=== PATIENT | female | born 1960 | race Caucasian/White ===

== ENCOUNTER 2019-08-18 20:39 | Emergency (ER) | payer MEDICAID, SELFPAY ==
[2019-08-18 20:47] VITALS: BP 103/81; PULSE 108; RESP 20; TEMP 36.7; O2SAT 95; BMI 54.8
--- NOTE | 2019-08-18 21:00 | ED_ITS ---
Entered by Yoly Espinoza, acting as scribe for Emma Tony HPI - Abdominal Pain General: Chief Complaint: Abdominal Pain Stated Complaint: VOMITING Time Seen by Provider: 08/18/19 20:59 Source: patient Mode of arrival: ambulatory Limitations: no limitations History of Present Illness: HPI narrative: 59 yo Female presents to ED with complaint of abdominal pain, nausea, and vomiting. Pt states that this started about a week ago. Pt states that it has gotten so bad that she hasn't been able to eat or drink anything today. Pt states that she has a history of diabetes and PVCs. MD elicited complaint: abdominal pain Pertinent past history: none Onset (ago): day(s) Pain Consistency: constant Location: RLQ Radiation: none Migration to: no migration Exacerbating factors: nothing Relieving factors: nothing Associated Symptoms: Reports nausea and vomiting; Denies chills, dysuria, fever(s), hematuria and syncope Review of Systems General: Reports: other (negative unless marked) Const: Denies: fever, chills, body aches, fatigue, malaise or diaphoresis Eyes: Denies: change in vision or blurry vision ENMT: Denies: throat pain, painful swallowing, hoarseness, ear pain, ear discharge, Change in hearing or nasal discharge Card: Denies: chest pain, palpitations, irregular heart rhythm, syncope, pre- syncope, shortness of breath on exertion or shortness of breath when lying down Resp: Denies: shortness of breath, productive cough, non-productive cough, wheezing, coughing up blood or chest congestion GI: Reports: abdominal pain, nausea and vomiting : Denies: flank pain, painful urination, urinary frequency, urinary urgency, decreased urine ouput, urinary incontinence or blood in urine Musc: Denies: neck pain, back pain, extremity pain, extremity swelling, joint pain, joint swelling, joint warmth or joint stiffness Skin/Breast: Denies: rash, skin tenderness or yellow skin Neuro: Denies: headache, numbness in extremities, weakness in extremities, changes in sensation, lack of coordination, difficulty walking, dizziness, vertigo or confusion Endo: Denies: excessive thirst, tired all the time, cold intolerance, excessi ve sweating, flushing or hot flashes Jose/Lymph: Denies: easy bruising, easy bleeding, petechiae or enlarged lymph nodes All/Imm: Denies: hives, throat swelling, tongue swelling, facial swelling or acute wheezing PFSH ED PFSH: Statuses (acute, chronic, etc) shown below reflect problem list status as previously entered and may not be historically accurate Medical History (Updated 08/18/19 @ 23:32 by Emma Tony) Diabetes (Acute) PVC (premature ventricular contraction) (Acute) Social History Smoking and tobacco status: never smoked Physical Exam Const: COMMON NORMALS: no apparent distress, oriented x3, no limitations, healthy appearing and well nourished EXAM LIMITATIONS: no altered mental status GENERAL APPEARANCE: cooperative, well kempt and well developed ORIENTATION/CONSCIOUSNESS: Yes awake HENMT: COMMON NORMALS: normocephalic, head/scalp atraumatic, hearing grossly normal bilaterally, external ears normal, EAC's normal, external nose normal and moist oral mucous membranes HEAD & SCALP: normal to inspection, normocephalic and atraumatic FACE & SINUS: normal facial exam and face symmetric NOSE: external nose normal and nares normal EXTERNAL EAR: Yes external ears normal EXTERNAL AUDITORY CANAL: EAC's normal MOUTH: oral and palatal mucosa normal and tongue normal Eye: COMMON NORMALS: PERRL, EOMs intact bilaterally, conjunctivae normal and no scleral icterus GENERAL EYE: normal appearance of both eyes and normal light reflex CONJUNCTIVA: Yes conjunctivae normal SCLERA: sclerae normal CORNEA: Yes corneas normal PUPIL: Yes PERRL DIRECT OPHTHALMOSCOPY: Yes normal light reflex Neck/C-Spine: COMMON NORMALS: full ROM, no lymphadenopathy, supple, no meningeal signs and no JVD GENERAL: Yes normal visual inspection and Yes trachea midline CERVICAL SPINE: Yes cervical ROM normal Chest: COMMONS NORMALS: inspection of chest normal and palpation of chest normal Resp: COMMON NORMALS: normal respiratory effort, no retractions, no use of ac cessory muscles and clear to auscultation bilaterally EFFORT & INSPECTION: Yes able to speak in complete sentences AUSCULTATION: clear to auscultation bilaterally Cardio: COMMON NORMALS: no JVD, regular rate, regular rhythm, S1 normal heart sound, S2 normal heart sound, no gallops, no clicks, no murmurs and no rub JUGULAR VENOUS DISTENTION: no JVD RATE: regular rate RHYTHM: regular rh ythm HEART SOUNDS: S1 normal and S2 normal GI: COMMON NORMALS: soft to palpation, non-tender, no hepatosplenomegaly and no masses INSPECTION: Yes normal to inspection PALPATION: Yes soft and Yes no hepatosplenomegaly : COMMON NORMALS: Yes no CVA tenderness BLADDER/KIDNEY EXAM: Yes no CVA tenderness Back/Pelvis: COMMON NORMALS: no CVA tenderness, thoracic and lumbar spine normal to inspection, no thoracic nor lumbar tenderness and thoraco-lumbar ROM normal Extremity: COMMON NORMALS: normal to inspection, full ROM, normal capillary refill, no joint enlargement, no clubbing, cyanosis or edema and no calf tenderness Neuro: COMMON NORMALS: oriented x3, CN's II-XII intact bilaterally, moves all extremities, no focal motor deficits and no sensory deficits noted MENINGEAL SIGNS: Yes no meningeal signs Psych: COMMON NORMALS: mental status grossly normal, thought process normal, cooperative, affect normal, speech normal and activity/motor behavior normal APPEARANCE: Yes well kempt SPEECH: Yes normal speech THOUGHT PROCESS: normal thought process Skin: COMMON NORMALS: no rashes or lesions noted, skin turgor normal, no jaundice, no petechiae and no mottling GENERAL SKIN EXAM: no rashes or lesions noted and turgor normal Course Vital Signs: Vital signs: Vital Signs Temperature 98.0 F 08/18/19 20:47 Pulse Rate 83 08/18/19 23:42 Respiratory Rate 18 08/18/19 23:42 Blood Pressure 170/77 08/18/19 23:42 Pulse Oximetry 95 08/18/19 23:42 MDM - Abdominal Pain Lab Data: Labs: Lab Results 08/18/19 08/18/19 08/18/19 Range/Units 21:25 21:25 21:25 WBC 12.0 H (4.0-10.0) 10^3/ uL RBC 5.02 (4.1-5.3) 10^6/u L Hgb 13.8 (11.5-15.3) g/dL Hct 41.9 (37.0-47.0) % MCV 83.5 (81-99) fL MCH 27.5 L (28.0-34.0) pg MCHC 32.9 (30.0-36.0) g/dL RDW 13.2 (12.1-15.1) % Plt Count 395 (130-400) 10^3/c mm MPV 9.6 (7.4-10.4) fL Neut % (Auto) 59.2 % Lymph % (Auto) 31.5 % [place] % (Auto) 5.4 % Eos % (Auto) 3.1 % Baso % (Auto) 0.5 % Neut # (Auto) 7.1 (1.8-7.7) 10^3/u L Lymph # (Auto) 3.8 (0.8-4.8) 10^3/u L [place] # (Auto) 0.7 (0.2-0.9) 10^3/u L Eos # (Auto) 0.4 (0.0-0.8) 10^3/u L Baso # (Auto) 0.1 (0.0-0.1) 10^3/u L Nucleated RBC % (a uto) 0 % Nucleated RBCs # 0.0 /100WBC Specimen Type Sample Site ABG pH (7.35-7.45) ABG pCO2 (35-45) mmHg ABG pO2 (80.0-100.0) mmH g ABG HCO3 (22-26) mmol/L ABG Base Excess (-2.0-2.0) mmol/ L Param Test Hematocrit (37-47) % O2 Delivery Device Roofing Foreman ID Sodium 137 (136-145) mmol/L Potassium 3.7 (3.5-5.1) mmol/L Chloride 98 (98-107) mmol/L Carbon Dioxide 26 (22-29) mmol/L Anion Gap 16.7 (5-19) BUN 13 (6-20) mg/dL Creatinine 0.6 (0.5-0.9) mg/dL GFR Calculation 103.0 (90-130) mL/min Glucose 374 H (65-115) mg/dL Calcium 10.6 H (8.5-10.5) mg/dL Total Bilirubin 0.7 (0.15-1.2) mg/dL AST 20 (0-32) U/L ALT 18 (0-33) U/L Alkaline Phosphata se 104 (35-105) IU/L Troponin T Baselin e (0-10) ng/mL Total Protein 7.9 (6.6-8.7) g/dL Albumin 4.0 (3.5-5.2) g/dL Globulin 3.9 (1.3-4.6) g/dL Lipase 16 (13-60) U/L HCG, Qual Negative (Negative) Urine Color (Yellow) Urine Appearance (CLEAR) Urine pH (5-7) Ur Specific Gravit y (1.005-1.030) Urine Protein (Negative) Urine Glucose (UA) (Normal) Urine Ketones (Negative) Urine Occult Blood (Negative) Urine Nitrate (Negative) Urine Bilirubin (NEGATIVE) Urine Urobilinogen (Negative) mg/dL Ur Leukocyte Kriss ase (Negative) Urine RBC (0-2) /hpf Urine WBC (0-5) /hpf Ur Squamous Epith Cells (0-5) Urine Bacteria (NONE) Serum Ketones (Negative) 08/18/19 08/18/19 08/18/19 Range/Units 21:25 21:25 22:04 WBC (4.0-10.0) 10^3/ uL RBC (4.1-5.3) 10^6/u L Hgb (11.5-15.3) g/dL Hct (37.0-47.0) % MCV (81-99) fL MCH (28.0-34.0) pg MCHC (30.0-36.0) g/dL RDW (12.1-15.1) % Plt Count (130-400) 10^3/c mm MPV (7.4-10.4) fL Neut % (Auto) % Lymph % (Auto) % [place] % (Auto) % Eos % (Auto) % Baso % (Auto) % Neut # (Auto) (1.8-7.7) 10^3/u L Lymph # (Auto) (0.8-4.8) 10^3/u L [place] # (Auto) (0.2-0.9) 10^3/u L Eos # (Auto) (0.0-0.8) 10^3/u L Baso # (Auto) (0.0-0.1) 10^3/u L Nucleated RBC % (a uto) % Nucleated RBCs # /100WBC Specimen Type Arterial Sample Site Radial, right ABG pH 7.40 (7.35-7.45) ABG pCO2 44.4 (35-45) mmHg ABG pO2 73.7 L (80.0-100.0) mmH g ABG HCO3 27.6 H (22-26) mmol/L ABG Base Excess 2.3 H (-2.0-2.0) mmol/ L Param Test Pos Hematocrit 43.0 (37-47) % O2 Delivery Device Room air Roofing Foreman ID [email or web address] Sodium (136-145) mmol/L Potassium (3.5-5.1) mmol/L Chloride (98-107) mmol/L Carbon Dioxide (22-29) mmol/L Anion Gap (5-19) BUN (6-20) mg/dL Creatinine (0.5-0.9) mg/dL GFR Calculation (90-130) mL/min Glucose (65-115) mg/dL Calcium (8.5-10.5) mg/dL Total Bilirubin (0.15-1.2) mg/dL AST (0-32) U/L ALT (0-33) U/L Alkaline Phosphata se (35-105) IU/L Troponin T Baselin e 9 (0-10) ng/mL Total Protein (6.6-8.7) g/dL Albumin (3.5-5.2) g/dL Globulin (1.3-4.6) g/dL Lipase (13-60) U/L HCG, Qual (Negative) Urine Color (Yellow) Urine Appearance (CLEAR) Urine pH (5-7) Ur Specific Gravit y (1.005-1.030) Urine Protein (Negative) Urine Glucose (UA) (Normal) Urine Ketones (Negative) Urine Occult Blood (Negative) Urine Nitrate (Negative) Urine Bilirubin (NEGATIVE) Urine Urobilinogen (Negative) mg/dL Ur Leukocyte Kriss ase (Negative) Urine RBC (0-2) /hpf Urine WBC (0-5) /hpf Ur Squamous Epith Cells (0-5) Urine Bacteria (NONE) Serum Ketones Negative (Negative) 08/18/19 Range/Units 23:03 WBC (4.0-10.0) 10^3/ uL RBC (4.1-5.3) 10^6/u L Hgb (11.5-15.3) g/dL Hct (37.0-47.0) % MCV (81-99) fL MCH (28.0-34.0) pg MCHC (30.0-36.0) g/dL RDW (12.1-15.1) % Plt Count (130-400) 10^3/c mm MPV (7.4-10.4) fL Neut % (Auto) % Lymph % (Auto) % [place] % (Auto) % Eos % (Auto) % Baso % (Auto) % Neut # (Auto) (1.8-7.7) 10^3/u L Lymph # (Auto) (0.8-4.8) 10^3/u L [place] # (Auto) (0.2-0.9) 10^3/u L Eos # (Auto) (0.0-0.8) 10^3/u L Baso # (Auto) (0.0-0.1) 10^3/u L Nucleated RBC % (a uto) % Nucleated RBCs # /100WBC Specimen Type Sample Site ABG pH (7.35-7.45) ABG pCO2 (35-45) mmHg ABG pO2 (80.0-100.0) mmH g ABG HCO3 (22-26) mmol/L ABG Base Excess (-2.0-2.0) mmol/ L Param Test Hematocrit (37-47) % O2 Delivery Device Roofing Foreman ID Sodium (136-145) mmol/L Potassium (3.5-5.1) mmol/L Chloride (98-107) mmol/L Carbon Dioxide (22-29) mmol/L Anion Gap (5-19) BUN (6-20) mg/dL Creatinine (0.5-0.9) mg/dL GFR Calculation (90-130) mL/min Glucose (65-115) mg/dL Calcium (8.5-10.5) mg/dL Total Bilirubin (0.15-1.2) mg/dL AST (0-32) U/L ALT (0-33) U/L Alkaline Phosphata se (35-105) IU/L Troponin T Baselin e (0-10) ng/mL Total Protein (6.6-8.7) g/dL Albumin (3.5-5.2) g/dL Globulin (1.3-4.6) g/dL Lipase (13-60) U/L HCG, Qual (Negative) Urine Color Yellow (Yellow) Urine Appearance Cloudy (CLEAR) Urine pH 5 (5-7) Ur Specific Gravit y 1.020 (1.005-1.030) Urine Protein 1+ H (Negative) Urine Glucose (UA) 4+ H (Normal) Urine Ketones 2+ H (Negative) Urine Occult Blood Trace H (Negative) Urine Nitrate Negative (Negative) Urine Bilirubin Neg (NEGATIVE) Urine Urobilinogen Norm (Negative) mg/dL Ur Leukocyte Kriss ase Trace H (Negative) Urine RBC 0-4 H (0-2) /hpf Urine WBC 15-25 H (0-5) /hpf Ur Squamous Epith Cells 0-4 H (0-5) Urine Bacteria 1+ H (NONE) Serum Ketones (Negative) Imaging Data ^: CT Abd/Pel: Radiologist's impression: [place] [address] CT Scan Report Signed Patient: Jacque Levine #: [id number] : 2At#:[id number] Age/Sex: 59 / FADM Date: 08/18/19 Loc: ERRoom/Bed: Attending Dr: Ordering Provider/Ordering MD: Emma Tony DO Date of Service: 08/18/19 Procedure(s): CT abdomen pelvis w con* [id number] Accession Number(s): [id number] Report Number: [id number] PROCEDURE INFORMATION: Exam: CT Abdomen And Pelvis With Contrast Exam date and time: 08/18/2019 9:23 PM Age: 59 years old Clinical indication: Abdominal pain; Generalized; Prior surgery; Surgery date: 6+ months; Surgery type: C-sect x 4; Patient HX: C/O abd pain w n/v x 1 week TECHNIQUE: Imaging protocol: Computed tomography of the abdomen and pelvis with intravenous contrast. Total DLP: 2086.25 mGy-cm Radiation optimization: All CT scans at this facility use at least one of these dose optimization techniques: automated exposure control; mA and/or kV adjustment per patient size (includes targeted exams where dose is matched to clinical indication); or iterative reconstruction. Contrast material: OMNI 300; Contrast volume: 95 ml; Contrast route: 20G; COMPARISON: CT Abdomen/Pelvis Renal [id number] 02/03/2018 4:14 PM FINDINGS: The lung bases are clear. There are degenerative changes of the spine. There is image degradation secondary to patient body habitus. There is no liver mass. There is no intrahepatic biliary dilatation. No gallstones are seen within the gallbladder. The pancreas is unremarkable. The spleen is unremarkable. There is a 4.4 cm stable right adrenal mass consistent with adenoma. This does not require any further follow-up. There is no hydronephrosis. There are no renal calculi. There is no perinephric stranding. There is no renal mass. The aorta is normal in caliber. The IVC is normal in caliber. There is no retroperitoneal adenopathy. There is no mesenteric adenopathy. The stomach is filled with food and fluid. There is no gastric wall thickening. The there is some minimal small bowel distention with fluid in the right lower abdomen which may represent a mild enteritis/ileus. There is no transition zone or obstruction. Feces is seen throughout the colon. There is no thickening of the wall of the ascending, transverse or descending colons. Within the pelvis: The appendix is not visualized to advantage. However, there is no CT evidence for acute appendicitis. The bladder is unremarkable. The uterus is unremarkable. There are no adnexal masses. There is no free fluid within the pelvis. There is no inguinal adenopathy. There is no pelvic adenopathy. Rectosigmoid colon is unremarkable. CT/CT abdomen pelvis w con* [id number] IMPRESSION: 1. Mild small bowel distention with fluid which may represent a mild enteritis/ileus. There is also some mild gastric distention as well. No definite bowel obstruction is seen. 2. Stable right adrenal adenoma. Radiation Dose CTDIVOL = (mGy): DLP = 2086.25 (mGy-cm) Dictated By:Sriram Avery MD Signed By:Sriram Averyigned Date/Time:08/18/192208 DD/ 06 Discharge Plan Discharge Patient Disposition: Home, Self-Care Clinical Impression: Gastroenteritis, Acute UTI Condition: Stable Prescriptions: New Zofran 4 mg tablet 4 mg PO DAILY PRN (Reason: nausea and vomiting) 5 Days RF: 0 Flagyl 500 mg tablet 500 mg PO TID 10 Days Qty: 30 RF: 0 Cipro 500 mg tablet 500 mg PO BID Qty: 20 RF: 0 Discharge Orders: Discharge Order (Routine); Ordered 08/18/19 Ordered By: Emma Tony Referrals: Brandi An, [employer] SPECIALTY TECHNICIAN-C [Family Provider] - 1-3 days Discharge Diet: Advance as tolerated and Clear Liquid Discharge Activity: Increase activity as tolerated Patient Instructions: Abdominal Pain - Adult, Gastroenteritis (ED), Abdominal Pain (ED) Activity Restrictions/Additional Instructions: Please return to the ER immediately for any of the signs or symptoms listed on your discharge instruction sheets, worsening/changing of your symptoms, you are not getting better as quickly as expected, or for ANY other cause or concerns. Developing appendicitis is still a possibility for your symptoms. If you develop more pain, fever, nausea, vomiting, or your pain is not completely gone within the next 8 to 12 hours please return to the ER for recheck to definitively rule out appendicitis. Coding Level of Care Code ED Sr. Payroll Processor for Chg Fwd Exam Problem Focused The documentation recorded by the Alexis payton Carmen, accurately reflects the service I personally performed and the decisions made by Chavo salguero Eli N Aug 18, 2019 20:39
--- NOTE | 2019-08-18 21:02 | ECG_ITS ---
Measurements Intervals [place] Rate: 82 P: 46 ND: 153 QRS: 16 QRSD: 89 T: 53 QT: 366 QTc: 430 SINUS RHYTHM Compared to ECG 02/03/2018 18:06:02 No significant changes Electronically Signed On 08-19-2019 0:20:53 DESKIDDING MACHINE OPERATOR by Rodney Todd M.D. [id number]
--- NOTE | 2019-08-18 21:03 | CTR_ITS ---
PROCEDURE INFORMATION: Exam: CT Abdomen And Pelvis With Contrast Exam date and time: 08/18/2019 9:23 PM Age: 59 years old Clinical indication: Abdominal pain; Generalized; Prior surgery; Surgery date: 6+ months; Surgery type: C-sect x 4; Patient HX: C/O abd pain w n/v x 1 week TECHNIQUE: Imaging protocol: Computed tomography of the abdomen and pelvis with intravenous contrast. Total DLP: 2086.25 mGy-cm Radiation optimization: All CT scans at this facility use at least one of these dose optimization techniques: automated exposure control; mA and/or kV adjustment per patient size (includes targeted exams where dose is matched to clinical indication); or iterative reconstruction. Contrast material: OMNI 300; Contrast volume: 95 ml; Contrast route: 20G; COMPARISON: CT Abdomen/Pelvis Renal [id number] 02/03/2018 4:14 PM FINDINGS: The lung bases are clear. There are degenerative changes of the spine. There is image degradation secondary to patient body habitus. There is no liver mass. There is no intrahepatic biliary dilatation. No gallstones are seen within the gallbladder. The pancreas is unremarkable. The spleen is unremarkable. There is a 4.4 cm stable right adrenal mass consistent with adenoma. This does not require any further follow-up. There is no hydronephrosis. There are no renal calculi. There is no perinephric stranding. There is no renal mass. The aorta is normal in caliber. The IVC is normal in caliber. There is no retroperitoneal adenopathy. There is no mesenteric adenopathy. The stomach is filled with food and fluid. There is no gastric wall thickening. The there is some minimal small bowel distention with fluid in the right lower abdomen which may represent a mild enteritis/ileus. There is no transition zone or obstruction. Feces is seen throughout the colon. There is no thickening of the wall of the ascending, transverse or descending colons. Within the pelvis: The appendix is not visualized to advantage. However, there is no CT evidence for acute appendicitis. The bladder is unremarkable. The uterus is unremarkable. There are no adnexal masses. There is no free fluid within the pelvis. There is no inguinal adenopathy. There is no pelvic adenopathy. Rectosigmoid colon is unremarkable. CT/CT abdomen pelvis w con* [id number] IMPRESSION: 1. Mild small bowel distention with fluid which may represent a mild enteritis/ileus. There is also some mild gastric distention as well. No definite bowel obstruction is seen. 2. Stable right adrenal adenoma. Radiation Dose CTDIVOL = (mGy): DLP = 2086.25 (mGy-cm)
[2019-08-18 21:33] LABS: Basophils # 0.1 10^3/uL (0.0-0.1); Basophils % 0.5 %; Eosinophils # 0.4 10^3/uL (0.0-0.8); Eosinophils % 3.1 %; Hematocrit 41.9 % (37.0-47.0); Hemoglobin 13.8 g/dL (11.5-15.3); Lymphocytes # 3.8 10^3/uL (0.8-4.8); Lymphocytes % 31.5 %; Mean Corpuscular HGB Conc 32.9 g/dL (30.0-36.0); Mean Corpuscular Hemoglobin 27.5 pg (28.0-34.0); Mean Corpuscular Volume 83.5 fL (81-99); Mean Platelet Volume 9.6 fL (7.4-10.4); Monocytes # 0.7 10^3/uL (0.2-0.9); Monocytes % 5.4 %; Neutrophils # 7.1 10^3/uL (1.8-7.7); Neutrophils % 59.2 %; Nucleated Red Blood Cells % 0 %; Platelet Count 395 10^3/cmm (130-400); Red Blood Count 5.02 10^6/uL (4.1-5.3); Red Cell Distribution Width 13.2 % (12.1-15.1)
[2019-08-18 21:40] LABS: Ketone (Acetest) Serum Negative (Negative)
[2019-08-18 21:41] VITALS: RESP 18
[2019-08-18] MEDS: morphine 4 mg/mL SDV 1 mL IVP (21:41)
[2019-08-18] MEDS: ondansetron 2 mg/ML SDV 2 mL 4 MG IVP (21:41)
[2019-08-18 21:44] LABS: HCG, Serum Qual Negative (Negative)
[2019-08-18 21:49] LABS: Alanine Aminotransferase 18 U/L (0-33); Alkaline Phosphatase 104 IU/L (35-105); Anion Gap 16.7 (5-19); Aspartate Amino Transferase 20 U/L (0-32); Blood Urea Nitrogen 13 mg/dL (6-20); Calcium 10.6 mg/dL (8.5-10.5); Carbon Dioxide 26 mmol/L (22-29); Chloride 98 mmol/L (98-107); Globulin 3.9 g/dL (1.3-4.6); Glucose 374 mg/dL (65-115); Lipase 16 U/L (13-60); Potassium 3.7 mmol/L (3.5-5.1); Sodium 137 mmol/L (136-145); Total Bilirubin 0.7 mg/dL (0.15-1.2); Total Protein 7.9 g/dL (6.6-8.7)
[2019-08-18] MEDS: iohexol 300 mg/mL 100 mL Btl IV (21:52)
[2019-08-18 22:04] LABS: ABG PCO2 44.4 mmHg (35-45); Base Excess ABG 2.3 mmol/L (-2.0-2.0); Blood Gas Allen Test Pos; Blood Gas Sample Site Radial, right; Blood Gas Sample Type Arterial; HCO3 ABG 27.6 mmol/L (22-26); Oxygen Device ROOM AIR; PO2 ABG 73.7 mmHg (80.0-100.0)
[2019-08-18 22:09] LABS: Troponin(5th) Baseline 9 ng/mL (0-10)
[2019-08-18 23:29] LABS: Protein Urine 1+ (Negative); Urine Appearance Cloudy (CLEAR); Urine Color Yellow (Yellow); pH Urine 5 (5-7)
[2019-08-18 23:30] LABS: Add Urine Culture? No; Bacteria Urine 1+; Bilirubin Urine Neg (NEGATIVE); Blood Urine Trace (Negative); Glucose Urine UA 4+ (Normal); Ketones Urine 2+ (Negative); Leukocyte Esterase Urine Trace (Negative); Nitrate Urine Negative (Negative); RBC Urine 0-4 /hpf (0-2); Squamous Epithelial Cell Urine 0-4 (0-5); Urobilinogen Urine Norm (Negative); WBC Urine 15-25 /hpf (0-5)
--- NOTE | 2019-08-18 23:35 | ECG_ITS ---
Measurements Intervals [place] Rate: 77 P: 38 IL: 140 QRS: 18 QRSD: 95 T: 65 QT: 381 QTc: 431 SINUS RHYTHM NONSPECIFIC T-WAVE ABNORMALITY Compared to ECG 02/03/2018 18:06:02 T-wave abnormality now present Electronically Signed On 08-19-2019 0:23:01 HOUSEKEEPING ASSOCIATE by Rodney Todd M.D. [id number]
[2019-08-18] MEDS: ciprofloxacin 500 mg Tablet PO (23:40)
[2019-08-18] MEDS: metoclopramide 5 mg/mL SDV 2 mL 10 MG IVP (23:40)
[2019-08-18] MEDS: metroNIDAZOLE 500 MG Tablet PO (23:40)
[2019-08-18 23:42] VITALS: BP 170/77; PULSE 83; RESP 18; O2SAT 95
[2019-08-18 23:59] LABS: Troponin 5 2HR 9.27 ng/mL (0-10); Troponin 5 2HR Delta 0.27 ABS# (0-10)
[2019-08-19 00:11] VITALS: BP 173/72; PULSE 80; RESP 17; O2SAT 80
== END 2019-08-19 00:09 | disposition home or self-care (01) ==
PROVIDERS: Emergency Provider Emergency Medicine; Family Provider Nurse Practitioner
DX: K52.9 Noninfective gastroenteritis and colitis, unspecified (principal); N39.0 Urinary tract infection, site not specified; E11.9 Type 2 diabetes mellitus without complications
CPT/HCPCS: 36600; 74177; 80053; 81001; 82009; 82803; 83690; 84484; 84703; 85025; 93005; 96361; 96365; 96372; 96374; 96375; 99283; 99284; A9270; J0131; J1815; J2270; J2405; J2765; J7030; Q9967

== ENCOUNTER → 2019-08-30 14:20 | Outpatient (BNVA) | payer MEDICAID, SELFPAY | PROVIDERS: Family Provider Nurse Practitioner; Visit Provider Nurse Practitioner | DX: E11.65 Type 2 diabetes mellitus with hyperglycemia (principal); N39.0 Urinary tract infection, site not specified; R82.998 Other abnormal findings in urine; F41.9 Anxiety disorder, unspecified; J30.1 Allergic rhinitis due to pollen; I10 Essential (primary) hypertension; E78.00 Pure hypercholesterolemia, unspecified; M54.2 Cervicalgia; Z79.4 Long term (current) use of insulin; Z92.29 Personal history of other drug therapy; Z86.73 Personal history of transient ischemic attack (TIA), and cerebral infarction without residual deficits | CPT/HCPCS: 80053; 81001; 83036; 85025; 87086; 87186 ==

== ENCOUNTER → 2019-09-19 13:48 | Outpatient (BNVA) | payer MEDICAID, SELFPAY | PROVIDERS: Family Provider Nurse Practitioner; Visit Provider Nurse Practitioner | DX: M54.2 Cervicalgia (principal); R82.998 Other abnormal findings in urine; M43.22 Fusion of spine, cervical region; M25.78 Osteophyte, vertebrae | CPT/HCPCS: 72040; 81001; 87086 ==

== ENCOUNTER 2019-12-20 03:00 | Emergency (ER) | payer MEDICAID, SELFPAY ==
[2019-12-20 03:02] VITALS: BMI 53.7
--- NOTE | 2019-12-20 03:04 | XR_ITS ---
WS: [id number] Portable AP upright chest, 12/20/2019 Clinical Data: Injury/pain Comparison: Portable chest, 08/27/2018 Findings: No nodules, masses or effusions are seen. The heart is normal. The pulmonary vascularity is not increased. No pneumonia or pneumothorax is seen. The aortic arch and descending aorta are minima lly tortuous. The patient has had a lower cervical anterior cervical disc fusion XR/XR chest 1V portable [id number] Impression: Atherosclerosis.
[2019-12-20 03:08] VITALS: BP 209/111; PULSE 83; RESP 20; TEMP 36.7; O2SAT 96
--- NOTE | 2019-12-20 03:27 | PC.NURSE ---
Pt did not want any medication at this time. All medication orders were held per Chavo.
--- NOTE | 2019-12-20 03:41 | ED_ITS ---
HPI - Trauma General: Chief Complaint: Trauma Stated Complaint: SIDE PAIN Time Seen by Provider: 12/20/19 03:02 History of Present Illness: HPI narrative: Jenny is a 59-year-old female who comes in complaining of 2 issues. First issue is that of a cat jumping on her chest causing her chest discomfort on the left lower part of her ribs. Her second complaint is that of urinary frequency, urgency and dysuria. Denies any fevers, chills, nausea or vomiting. She denies injuries to her head or otherwise from the cat. She wants to evaluated for these specific complaints. Associated symptoms: Denies abdominal pain, back pain, chills, confusion, diaphoresis, dizziness, fever(s), headache(s), nausea, syncope or vomiting Review of Systems Const: Denies: fever(s), chills, body aches, fatigue, malaise or diaphoresis Eyes: Denies: change in vision, blurry vision, blind spots or photophobia ENMT: Denies: throat pain, odynophagia, hoarseness, swelling of lips/tongue, ear or mastoid pain, ear discharge, change in hearing or nasal discharge Card: Denies: palpitations, irregular heart rhythm, edema, lightheadedness, syncope, pre-syncope, dyspnea on exertion or orthopnea Resp: Denies: dyspnea, productive cough, non-productive cough, wheezing, hemoptysis or chest congestion GI: Denies: abdominal pain, nausea, vomiting, hematemesis, coffee ground emesis, heartburn, diarrhea, constipation, GI cramping, hematochezia or melena : Reports: dysuria, urinary frequency and urinary urgency; Denies: flank pain or hematuria Musc: Denies: neck pain, back pain, extremity pain, extremity swelling, joint pain, joint swelling, joint redness, joint warmth or joint stiffness Skin/Breast: Denies: rash, pruritus, erythema, skin tenderness or jaundice Neuro: Denies: headache(s), numbness in extremities, weakness in extremities, sensory changes, lack of coordination, difficulty walking, dizziness, vertigo, confusion or Slurred speech present Jose/Lymph: Denies: easy bruising, easy bleeding, petechiae, purpura or enlarged lymph nodes All/Imm: Denies: urticaria, throat swelling, tongue swelling, facial swelling or acute wheezing PFSH ED PFSH: Medical History Allergic rhinitis due to pollen Anxiety Diabetes Essential (primary) hypertension History of CVA (cerebrovascular accident) Hypercholesterolemia Neck pain with history of cervical spinal surgery Obesity Personal history of transient ischemic attack (TIA), and cerebral infarction without residual deficits PVC (premature ventricular contraction) Surgical History H/O neck surgery C -spine with plate 2000 History of section 4 times History of endarterectomy Right History of endometrial ablation History of knee surgery Left History of tonsillectomy Family History Mother Diabetes Heart disease Hypertension Father Diabetes Heart disease Hypertension Cancer Unknown type Sister Diabetes Heart disease Hypertension Brother Diabetes Heart disease Hypertension Family/Other Stroke Social History Smoking and tobacco status: never smoked Second hand smoke exposure: No Smoking risk assessment/counseling performed?: No Alcohol intake: never Desire information about alcohol rehabilitation?: No Counseling given: No Desire information about substance/drug rehabilitation?: No Counseling given: No Caregiver/support person: No Lives independently: Yes Household members: spouse Housing: Apartment Marital status: Unknown Current occupational status: unemployed History of recent travel: No Current gender identity: Female Physical Exam Const: COMMON NORMALS: no acute distress, patient oriented x3, no limitations, healthy appearing and well nourished GENERAL APPEARANCE: cooperative, well kempt and well developed HENMT: COMMON NORMALS: normocephalic, atraumatic, external ears normal, EAC's normal and Normal external nose present HEAD & SCALP: normal to inspection, normocephalic and atraumatic FACE & SINUS: normal facial exam and face symmetric NOSE: Normal external nose present and Normal nares present EXTERNAL EAR: Yes external ears normal EXTERNAL AUDITORY CANAL: EAC's normal MOUTH: Normal oral and palatal mucosa present, lip normal and tongue normal Eye: COMMON NORMALS: Equal, round and reactive pupils present and conjunctivae normal GENERAL EYE: appearance normal, both eyes and all related structures ALIGNMENT: Yes alignment normal PERIORBITAL: periorbital findings normal EYELID: eyelids normal CONJUNCTIVA: Yes conjunctivae normal SCLERA: sclerae normal PUPIL: Yes Equal, round and reactive pupils present Neck/C-Spine: COMMON NORMALS: full ROM, no lymphadenopathy, supple, no meningeal signs and no JVD GENERAL: Yes normal visual inspection and Yes trachea midline Chest: COMMONS NORMALS: normal inspection of the chest and normal palpation of entire chest wall Resp: COMMON NORMALS: normal respiratory effort, No retractions and No use of accessory muscles EFFORT & INSPECTION: Yes able to speak in complete sentences and Yes symmetric chest movement AUSCULTATION: no crackles, no rales, no rhonchi and no wheezes Cardio: COMMON NORMALS: no JVD, regular rate, regular rhythm, S1 normal heart sound present and S2 normal heart sound present RATE: regular rate RHYTHM: regular rhythm HEART SOUNDS: S1 normal heart sound present, S2 normal heart sound present, no click, no gallops, no murmurs, no rubs and abnormal split S2 GI: COMMON NORMALS: Soft to palpation and No hepatosplenomegaly present PALPATION: Yes Soft to palpation, No Tenderness to palpation present (GI), No Guarding due to palpation present (GI), No Rigid due to palpation, Yes No hepatosplenomegaly present, No Hernia present, No Palpable mass present and No Pulsatile mass present : COMMON NORMALS: Yes no CVA tenderness BLADDER/KIDNEY EXAM: Yes no CVA tenderness EXTERNAL FEMALE EXAM: No Hernia present Back/Pelvis: COMMON NORMALS: no CVA tenderness, thoracic and lumbar spine normal to inspection, no thoracic nor lumbar tenderness and thoraco-lumbar ROM normal Extremity: COMMON NORMALS: normal to inspection, full ROM, capillary refill normal, no joint enlargement, no clubbing, cyanosis or edema and no calf tenderness Neuro: COMMON NORMALS: patient oriented x3, CN's II-XII intact bilaterally, moves all extremities, no focal motor deficits and no sensory deficits noted MENINGEAL SIGNS: Yes no meningeal signs SPEECH: speech normal Psych: COMMON NORMALS: mental status grossly normal, Normal thought process present, cooperative, normal affect, speech normal and activity/motor behavior normal APPEARANCE: Yes well kempt SPEECH: Yes normal speech THOUGHT PROCESS: Normal thought process present Skin: COMMON NORMALS: no rashes or lesions noted, turgor normal, no jaundice, no petechiae and no mottling GENERAL SKIN EXAM: no rashes or lesions noted and turgor normal MDM - Trauma MDM Narrative: Medical decision making narrative: Patient is lab work and x- ray unremarkable. She declines any further evaluation and care would like to be discharged. She will remain here until her ride is available but at this time she is declining any further evaluation and care. I see no sign of trauma. Her exam is benign with only minimal tenderness to palpation. Her urinalysis is negative and she has no CVA tenderness. Lab Data: Attestation: I reviewed the patient's lab results. Labs: Lab Results 12/20/19 Range/Units 03:20 Urine Color Yellow (Yellow) Urine Appearance Clear (CLEAR) Urine pH 6.5 (5-7) Ur Specific Gravit y 1.010 (1.005-1.030) Urine Protein Neg (Negative) Urine Glucose (UA) 4+ H (Normal) Urine Ketones Negative (Negative) Urine Blood Neg (Negative) Urine Nitrate Negative (Negative) Urine Bilirubin Neg (NEGATIVE) Urine Urobilinogen Norm (Negative) mg/dL Ur Leukocyte Kriss ase Negative (Negative) Urine RBC Rare (0-2) /hpf Urine WBC 0-4 H (0-5) /hpf Ur Squamous Epith Cells Rare (0-5) Urine Bacteria Trace (NONE) Imaging Data^: CXR: My impression: No acute cardiopulmonary findings. Discharge Plan Discharge Patient Disposition: Home, Self-Care Clinical Impression: Chest wall contusion Qualifiers: Encounter type: initial encounter Laterality: left Qualified Code(s): S20.212A - Contusion of left front wall of thorax, initial encounter Condition: Stable Prescriptions: No Action fluticasone propionate 50 mcg/actuation spray,suspension 2 spray INTRANASAL DAILY RF: 0 lancets miscellaneous BID RF: 0 nitroglycerin [Nitrostat] 0.4 mg tablet, sublingual 0.4 mg SUBLINGUAL Q5M PRNRF: 0 triamcinolone acetonide 0.1 % cream 1 applic TOPICAL BID PRNRF: 0 citalopram [Celexa] 40 mg tablet 40 mg PO DAILY Qty: 30 RF: 2 chlorthalidone 25 mg tablet 25 mg PO DAILY Qty: 30 RF: 2 cetirizine 10 mg tablet 10 mg PO DAILY Qty: 30 RF: 2 clopidogrel [Plavix] 75 mg tablet 75 mg PO DAILY Qty: 30 RF: 2 doxepin 100 mg capsule 100 mg PO DAILY Qty: 30 RF: 2 lisinopril 40 mg tablet 40 mg PO DAILY Qty: 30 RF: 2 montelukast [Singulair] 10 mg tablet 10 mg PO DAILY Qty: 30 RF: 2 rosuvastatin [Crestor] 40 mg tablet 40 mg PO DAILY Qty: 30 RF: 2 Lantus Solostar U-100 Insulin 100 unit/mL (3 mL) insulin pen 70 unit SUBCUT BID 30 Days Qty: 42 RF: 2 exenatide microspheres 2 mg/0.65 mL pen injector 2 mg SUBCUT Q7D Qty: 4 RF: 2 levofloxacin 250 mg tablet 250 mg PO DAILY Qty: 5 RF: 0 albuterol sulfate [Ventolin HFA] 90 mcg/actuation HFA aerosol inhaler 2 puff INHALATION Q4H PRN (Reason: shortness of breath or wheezing) Qty: 18 RF: 2 insulin aspart U-100 [Novolog Flexpen U-100 Insulin] 100 unit/mL (3 mL) insulin pen See Rx Instructions SUBCUT TID Qty: 15 RF: 0 Discharge Orders: Discharge Order (Routine); Ordered 12/20/19 Ordered By: Emma Tony Referrals: Brandi An, [facility] [Primary Care Provider] - 1-3 days Discharge Diet: Advance as tolerated Discharge Activity: Increase activity as tolerated Patient Instructions: Contusion in Adults (ED) Activity Restrictions/Additional Instructions: Please return to the ER immediately for any of the signs or symptoms listed on your discharge instruction sheets, worsening/changing of your symptoms, you are not getting better as quickly as expected, or for ANY other cause or concerns. Coding Level of Care Code ED [employer] Sales [employer] Service Manager for Kim Simmons
[2019-12-20 03:47] LABS: Bacteria Urine TRACE; Bilirubin Urine Neg (NEGATIVE); Blood Urine Neg (Negative); Glucose Urine UA 4+ (Normal); Ketones Urine Negative (Negative); Leukocyte Esterase Urine Negative (Negative); Nitrate Urine Negative (Negative); Protein Urine Neg (Negative); RBC Urine RARE /hpf (0-2); Squamous Epithelial Cell Urine RARE (0-5); Urine Appearance Clear (CLEAR); Urine Color Yellow (Yellow); Urobilinogen Urine Norm (Negative); WBC Urine 0-4 /hpf (0-5); pH Urine 6.5 (5-7)
[2019-12-20 04:03] VITALS: BP 160/81; PULSE 78; RESP 18; O2SAT 96
[2019-12-20] MEDS: acetaminophen 500 mg Tablet 1000 MG PO (05:01)
[2019-12-20 05:02] VITALS: BP 182/97; PULSE 78; RESP 18; O2SAT 95
== END 2019-12-20 05:05 | disposition home or self-care (01) ==
PROVIDERS: Emergency Provider Emergency Medicine; PCP Nurse Practitioner
DX: S20.212A Contusion of left front wall of thorax, initial encounter (principal); W55.09XA Other contact with cat, initial encounter; E11.9 Type 2 diabetes mellitus without complications; I10 Essential (primary) hypertension; Z86.73 Personal history of transient ischemic attack (TIA), and cerebral infarction without residual deficits
CPT/HCPCS: 12345; 71045; 81001; 99282; 99283; A9270

== ENCOUNTER → 2020-01-02 13:39 | Outpatient (BNVA) | payer MEDICAID, SELFPAY | PROVIDERS: PCP Nurse Practitioner; Visit Provider Nurse Practitioner | DX: E11.9 Type 2 diabetes mellitus without complications (principal); I10 Essential (primary) hypertension; F41.9 Anxiety disorder, unspecified; Z86.73 Personal history of transient ischemic attack (TIA), and cerebral infarction without residual deficits; E78.00 Pure hypercholesterolemia, unspecified; Z79.4 Long term (current) use of insulin | CPT/HCPCS: 80053; 80061; 83036 ==

== ENCOUNTER 2020-03-14 17:58 | Emergency (ER) | payer MEDICAID, SELFPAY ==
[2020-03-14 18:15] VITALS: BP 164/91; PULSE 84; RESP 18; TEMP 36.8; O2SAT 96; BMI 58.7
--- NOTE | 2020-03-14 19:06 | PC.NURSE ---
Pt in waiting room, no needs at this time.
[2020-03-14 20:45] VITALS: BP 145/77; PULSE 74; RESP 19; O2SAT 95
[2020-03-14 20:47] VITALS: BP 132/91; BP 136/67; BP 153/91; PULSE 73; PULSE 78; PULSE 89
--- NOTE | 2020-03-14 20:50 | W.ED.GENADLT ---
HPI - General Adult General: Chief complaint: General Medical Stated complaint: HEADACHE/ HTN Time Seen by Provider: 03/14/20 20:30 Source: patient Mode of arrival: ambulatory Limitations: no limitations History of Present Illness: HPI narrative: Patient comes in today for complaints of headache and uncontrolled hypertension. Patient reported elevated blood pressures as high as 220 systolic. Patient denies any weakness in the extremities. Patient denies any signs of illness. Patient appears well. Patient appears in no pain. Associated symptoms: Reports headache(s) Review of Systems General: Reports: 10 or more systems reviewed and unremarkable except in HPI and below Neuro: Reports: headache(s) [facility] ED PFS: Medical History (Updated 03/14/20 @ 21:57 by PRAMOD Lee) Allergic rhinitis due to pollen Anxiety Diabetes Essential (primary) hypertension History of CVA (cerebrovascular accident) Hypercholesterolemia Neck pain with history of cervical spinal surgery Obesity Personal history of transient ischemic attack (TIA), and cerebral infarction without residual deficits PVC (premature ventricular contraction) Recurrent bronchospasm Surgical History H/O neck surgery C -spine with plate 2000 History of section 4 times History of endarterectomy Right History of endometrial ablation History of knee surgery Left History of tonsillectomy Family History Mother Diabetes Heart disease Hypertension Father Diabetes Heart disease Hypertension Cancer Unknown type Sister Diabetes Heart disease Hypertension Brother Diabetes Heart disease Hypertension Family/Other Stroke Social History Smoking and tobacco status: never smoked Second hand smoke exposure: No Smoking risk assessment/counseling performed?: No Alcohol intake: never Desire information about alcohol rehabilitation?: No Counseling given: No Desire information about substance/drug rehabilitation?: No Counseling given: No Caregiver/support person: No Lives independently: Yes Household members: spouse Housing: Apartment Marital status: Unknown Current occupational status: unemployed History of recent travel: No Current gender identity: Female Physical Exam Const: COMMON NORMALS: no acute distress and patient oriented x3 GENERAL APPEARANCE: cooperative HENMT: COMMON NORMALS: normocephalic, TM's normal bilaterally and Normal external nose present HEAD & SCALP: normal to inspection and normocephalic NOSE: Normal external nose present TYMPANIC MEMBRANE: TM's normal bilaterally MOUTH: Normal oral and palatal mucosa present THROAT: posterior oropharynx normal Eye: GENERAL EYE: appearance normal, both eyes and all related structures Neck/C-Spine: COMMON NORMALS: full ROM and no meningeal signs Lymph: LYMPHATIC: no lymphadenopathy noted Chest: COMMONS NORMALS: normal inspection of the chest Resp: COMMON NORMALS: normal respiratory effort EFFORT & INSPECTION: Yes able to speak in complete sentences Cardio: COMMON NORMALS: regular rate and regular rhythm RATE: regular rate RHYTHM: regular rhythm GI: COMMON NORMALS: non-tender : COMMON NORMALS: Yes no CVA tenderness BLADDER/KIDNEY EXAM: Yes no CVA tenderness Back/Pelvis: COMMON NORMALS: no CVA tenderness and thoracic and lumbar spine normal to inspection Extremity: COMMON NORMALS: normal to inspection Neuro: COMMON NORMALS: patient oriented x3 and moves all extremities MENINGEAL SIGNS: Yes no meningeal signs SPEECH: speech normal GAIT: Yes Normal gait present Psych: COMMON NORMALS: mental status grossly normal and cooperative Skin: COMMON NORMALS: no rashes or lesions noted GENERAL SKIN EXAM: no rashes or lesions noted Course Vital Signs: Vital signs: Vital Signs Temperature 98.3 F 03/14/20 18:15 Pulse Rate 96 03/14/20 21:46 Respiratory Rate 18 03/14/20 21:46 Blood Pressure 127/77 03/14/20 21:46 Pulse Oximetry 95 03/14/20 21:46 MDM - General Adult MDM Narrative: Medical decision making narrative: Patient comes in today for complaints of headache and high blood pressure. Patient reported blood pressure as high as 220 systolic at home. On exam patient's blood pressure is down to 160 systolic. Respirations are even lungs are clear to auscultation. Abdomen soft nontender. No edema is noted in the extremities. Patient appears well. Differential diagnosis includes but not limited to uncontrolled hypertension, headache, ACS. Laboratory values were unremarkable. Lungs are clear on the chest x-ray, and EKG was sinus rhythm. Reviewed exam with patient recommended starting amlodipine 2-1/2 mg at bedtime to help control early day blood pressure little bit more well with her chlorthalidone 25 and lisinopril 40 mg were becoming effective. Patient usually takes those 2 medications in the morning. Prior to discharge patient's blood pressure did come down to 120 systolic. Headache was improved with a one-time dose of hydrocodone 5/325. Lab Data: Labs: Lab Results 03/14/20 03/14/20 03/14/20 Range/Units 20:53 20:53 21:00 WBC 14.8 H (4.0-10.0) 10^3/ uL RBC 5.12 (4.1-5.3) 10^6/u L Hgb 14.2 (11.5-15.3) g/dL Hct 44.5 (37.0-47.0) % MCV 86.9 (81-99) fL MCH 27.7 L (28.0-34.0) pg MCHC 31.9 (30.0-36.0) g/dL RDW 13.1 (12.1-15.1) % Plt Count 396 (130-400) 10^3/c mm MPV 9.1 (7.4-10.4) fL Neut % (Auto) 62.1 % Lymph % (Auto) 28.9 % [place] % (Auto) 6.2 % Eos % (Auto) 2.0 % Baso % (Auto) 0.5 % Neut # (Auto) 9.17 H (1.8-7.7) 10^3/u L Lymph # (Auto) 4.3 (0.8-4.8) 10^3/u L [place] # (Auto) 0.9 (0.2-0.9) 10^3/u L Eos # (Auto) 0.3 (0.0-0.8) 10^3/u L Baso # (Auto) 0.1 (0.0-0.1) 10^3/u L Nucleated RBC % (a uto) 0 % Nucleated RBCs # 0.0 /100WBC Sodium 141 (136-145) mmol/L Potassium 3.7 (3.5-5.1) mmol/L Chloride 100 (98-107) mmol/L Carbon Dioxide 32 H (22-29) mmol/L Anion Gap 12.7 (5-19) BUN 13 (6-20) mg/dL Creatinine 0.6 (0.5-0.9) mg/dL GFR Calculation 102.7 (90-130) mL/min Glucose 97 (65-115) mg/dL Calculated Osmolal ity 288 (285-295) mOsm/k g Calcium 9.9 (8.5-10.5) mg/dL Urine Color Yellow (Yellow) Urine Appearance Clear (CLEAR) Urine pH 8 H (5-7) Ur Specific Gravit y 1.005 (1.005-1.030) Urine Protein Neg (Negative) Urine Glucose (UA) Norm (Normal) Urine Ketones Negative (Negative) Urine Blood Neg (Negative) Urine Nitrate Negative (Negative) Urine Bilirubin Neg (NEGATIVE) Prot Sulfosalicyli c Acd Negative (Negative) Urine Urobilinogen Norm (Negative) mg/dL Ur Leukocyte Kriss ase Negative (Negative) EKG Data^: EKG 1: Attestation: I personally reviewed and interpreted this EKG as follows: (2115, sinus rhythm, 74 bpm regular rate, no ST elevation, no ectopy.) Discharge Plan Discharge Patient Disposition: Home Clinical Impression: Hypertension Qualifiers: Hypertension type: unspecified Qualified Code(s): I10 - Essential (primary) hypertension Headache Qualifiers: Headache type: unspecified Headache chronicity pattern: acute headache Intractability: not intractable Qualified Code(s): R51 - Headache Condition: Stable Prescriptions: New amlodipine 2.5 mg tablet 2.5 mg PO DAILY Qty: 30 RF: 0 No Action fluticasone propionate 50 mcg/actuation spray,suspension 2 spray INTRANASAL DAILY RF: 0 lancets miscellaneous BID RF: 0 nitroglycerin [Nitrostat] 0.4 mg tablet, sublingual 0.4 mg SUBLINGUAL Q5M PRNRF: 0 triamcinolone acetonide 0.1 % cream 1 applic TOPICAL BID PRNRF: 0 cetirizine 10 mg tablet 10 mg PO DAILY Qty: 30 RF: 2 chlorthalidone 25 mg tablet 25 mg PO DAILY Qty: 30 RF: 2 citalopram [Celexa] 40 mg tablet 40 mg PO DAILY Qty: 30 RF: 2 clopidogrel [Plavix] 75 mg tablet 75 mg PO DAILY Qty: 30 RF: 2 doxepin 100 mg capsule 100 mg PO DAILY Qty: 30 RF: 2 insulin aspart U-100 [Novolog Flexpen U-100 Insulin] 100 unit/mL (3 mL) insulin pen See Rx Instructions SUBCUT TID Qty: 15 RF: 0 Lantus Solostar U-100 Insulin 100 unit/mL (3 mL) insulin pen 70 unit SUBCUT BID 30 Days Qty: 42 RF: 2 lisinopril 40 mg tablet 40 mg PO DAILY Qty: 30 RF: 2 montelukast [Singulair] 10 mg tablet 10 mg PO DAILY Qty: 30 RF: 2 rosuvastatin [Crestor] 40 mg tablet 40 mg PO DAILY Qty: 30 RF: 2 albuterol sulfate [Ventolin HFA] 90 mcg/actuation HFA aerosol inhaler 2 puff INHALATION Q4H PRN (Reason: shortness of breath or wheezing) Qty: 18 RF: 2 [place] 10 mcg/dose(250 mcg/mL) 2.4 mL pen injector 10 mcg SUBCUT BID Qty: 2.4 RF: 1 (DME) blood-glucose meter [OneTouch Ultra2 Meter] Kit See Rx Instructions .ROUTE .MEDSUPPLY Qty: 1 RF: 0 (DME) OneTouch Ultra Blue Test Strip Strip See Rx Instructions .ROUTE .MEDSUPPLY Qty: 100 RF: 5 Discharge Orders: Discharge Order (Routine); Ordered 03/14/20 Ordered By: Edwin Cruz Referrals: Brandi An, [facility]LO[facility] [Primary Care Provider] - Discharge Diet: Usual diet Discharge Activity: Increase activity as tolerated Patient Instructions: Hypertension (ED) Activity Restrictions/Additional Instructions: Home and rest. Activity as tolerated. Take amlodipine 2-1/2 mg at bedtime. Follow-up with primary care regarding further blood pressure control. Healthy diet and exercise. Return to the emergency department for new concerns. Remember to change positions slowly with the start of new blood pressure medication while your body adjusts. Sudden movements may increase dizziness with blood pressure medications. Coding Level of Care Code ED Lining Finisher for Kim Fwd Exam Comprehensive
[2020-03-14 21:01] LABS: Basophils # 0.1 10^3/uL (0.0-0.1); Basophils % 0.5 %; Eosinophils # 0.3 10^3/uL (0.0-0.8); Hematocrit 44.5 % (37.0-47.0); Hemoglobin 14.2 g/dL (11.5-15.3); Lymphocytes # 4.3 10^3/uL (0.8-4.8); Lymphocytes % 28.9 %; Mean Corpuscular HGB Conc 31.9 g/dL (30.0-36.0); Mean Corpuscular Hemoglobin 27.7 pg (28.0-34.0); Mean Corpuscular Volume 86.9 fL (81-99); Mean Platelet Volume 9.1 fL (7.4-10.4); Monocytes # 0.9 10^3/uL (0.2-0.9); Monocytes % 6.2 %; Neutrophils # 9.17 10^3/uL (1.8-7.7); Neutrophils % 62.1 %; Nucleated Red Blood Cells % 0 %; Platelet Count 396 10^3/cmm (130-400); Red Blood Count 5.12 10^6/uL (4.1-5.3); Red Cell Distribution Width 13.1 % (12.1-15.1); White Blood Count 14.8 10^3/uL (4.0-10.0)
[2020-03-14 21:18] LABS: Anion Gap 12.7 (5-19); Blood Urea Nitrogen 13 mg/dL (6-20); Calcium 9.9 mg/dL (8.5-10.5); Carbon Dioxide 32 mmol/L (22-29); Chloride 100 mmol/L (98-107); Glomerular Filtration Rate 102.7 mL/min (90-130); Glucose 97 mg/dL (65-115); Osmolality Calculated 288 mOsm/kg (285-295); Potassium 3.7 mmol/L (3.5-5.1); Sodium 141 mmol/L (136-145)
[2020-03-14 21:33] LABS: Add Urine Microscopic? NO
[2020-03-14 21:38] LABS: Urine Appearance Clear (CLEAR); Urine Color Yellow (Yellow); pH Urine 8 (5-7)
[2020-03-14 21:39] LABS: Bilirubin Urine Neg (NEGATIVE); Blood Urine Neg (Negative); Glucose Urine UA Norm (Normal); Ketones Urine Negative (Negative); Leukocyte Esterase Urine Negative (Negative); Nitrate Urine Negative (Negative); Protein Urine Neg (Negative); Specific Gravity, Urine 1.005 (1.005-1.030); Sulfosalicylic Acid Urine Negative (Negative); Urobilinogen Urine Norm (Negative)
[2020-03-14] MEDS: HYDROcodone-acetaminophen 5-325 mg Tablet 1 TAB PO (21:45)
[2020-03-14 21:46] VITALS: BP 127/77; PULSE 96; RESP 18; O2SAT 95
[2020-03-14] MEDS: amlodipine 5 mg Tablet 2.5 MG PO (22:29)
[2020-03-14 22:36] VITALS: BP 141/95; PULSE 79; RESP 18; O2SAT 95
== END 2020-03-14 22:36 | disposition home or self-care (01) ==
PROVIDERS: Emergency Provider Nurse Practitioner Family; PCP Nurse Practitioner
DX: R51 Headache (principal); I10 Essential (primary) hypertension; Z79.02 Long term (current) use of antithrombotics/antiplatelets; Z79.4 Long term (current) use of insulin; E11.9 Type 2 diabetes mellitus without complications; Z86.73 Personal history of transient ischemic attack (TIA), and cerebral infarction without residual deficits
CPT/HCPCS: 12345; 36415; 80048; 81003; 85025; 99283

== ENCOUNTER → 2020-03-18 10:01 | Outpatient (BNVA) | payer MEDICAID, SELFPAY | PROVIDERS: PCP Nurse Practitioner; Visit Provider Internal Medicine | DX: Z11.59 Encounter for screening for other viral diseases (principal) | CPT/HCPCS: 87635 ==

== ENCOUNTER 2020-03-20 08:19 | Observation (INO) | payer MEDICAID, SELFPAY ==
[2020-03-18 11:51] LABS: Basophils # 0.1 10^3/uL (0.0-0.1); Basophils % 0.5 %; Eosinophils # 0.5 10^3/uL (0.0-0.8); Hematocrit 44.2 % (37.0-47.0); Hemoglobin 14.4 g/dL (11.5-15.3); Lymphocytes # 3.6 10^3/uL (0.8-4.8); Lymphocytes % 23.8 %; Mean Corpuscular HGB Conc 32.6 g/dL (30.0-36.0); Mean Corpuscular Hemoglobin 28.2 pg (28.0-34.0); Mean Corpuscular Volume 86.5 fL (81-99); Mean Platelet Volume 9.6 fL (7.4-10.4); Monocytes # 0.8 10^3/uL (0.2-0.9); Monocytes % 5.2 %; Neutrophils # 9.95 10^3/uL (1.8-7.7); Nucleated Red Blood Cells % 0 %; Platelet Count 430 10^3/cmm (130-400); Red Blood Count 5.11 10^6/uL (4.1-5.3); White Blood Count 14.9 10^3/uL (4.0-10.0)
[2020-03-18 12:40] LABS: Anion Gap 15.2 (5-19); Blood Urea Nitrogen 15 mg/dL (6-20); Calcium 9.1 mg/dL (8.5-10.5); Carbon Dioxide 31 mmol/L (22-29); Chloride 94 mmol/L (98-107); Glomerular Filtration Rate 85.9 mL/min (90-130); Glucose 408 mg/dL (65-115); Osmolality Calculated 295 mOsm/kg (285-295); Potassium 4.2 mmol/L (3.5-5.1); Sodium 136 mmol/L (136-145)
[2020-03-19 11:53] VITALS: BMI 56.9
[2020-03-20] VITALS (13 sets, daily range): BP systolic 91–143; BP diastolic 61–93; PULSE 76–91; RESP 16–24; TEMP 37.1; O2SAT 74–96
--- NOTE | 2020-03-20 06:00 | XACV_ITS ---
Ht: 157 cm Wt: 141 kg BSA: 2.58 m2 Gender: Female : 1960 Any Known Allergies: Other Exam Priority: Routine Procedure(s): Procedure Description: Diagnostic procedure Procedure Description: Coronary angiography Diagnostic Cath Status: Elective Diagnostic Findings No significant disease noted in the Left Main, LAD, Circumflex, or RCA coronary arteries. All coronary arteries are tortuous. Left main arises from left coronary cusp. It has luminal irregularities. It gives rise to LAD and left circumflex artery. LAD is a tortuous vessel. It gives rise to a large diagonal branch. No significant stenosis is noted. Left circumflex artery has luminal irregularities. No significant stenosis is noted. RCA is a tortuous vessel. No significant stenosis is noted. Coronary angiography shows right dominance. Conclusions Possible microvascular dysfunction. No significant disease noted in the Left Main, LAD, Circumflex, or RCA coronary arteries. Recommendations Aggressive blood pressure control. Clinical Evaluation EBL: 5mL-10mL Procedural Details Procedure Consent Obtained. Admit Source: In Patient. Pre-Procedure Time Out. Identified patient by full name and date of as verbalized by the patient/guarantor. Does the consent match the physician's order: Yes. Accurate & Complete Informed Consent: Yes. Inpatient/Outpatient History & Physical on Chart: Yes. If H&P is completed, is and addenduem needed: N/A; If yes, is the addendum complete: N/A. Visualize and Verify Site with Patient/Guarantor: N/A. Relevant Radiology Images available: N/A. Pre-op teaching completed and patient verbalized understanding. The risks, benefits, and alternatives of sedation and/or procedure were discussed by physician. The patient agrees to continue. Procedure started. Correct patient, site and procedure confirmed by cath team. PERRLA. Strong, equal hand piano teacher bilaterally. Lungs clear x 5 lobes. IV Site on Arrival: 20 gauge in the right anticubital. Oxygen started at 2liters/min via nasal canula. bilateral groins was prepped with chloroprep then draped in the usual sterile fashion. Baseline sample Acquired. HR: 79 BPM. Physician notified. Patient stated that we can get ahold of son after procedure. Physician arrived. Physician scrubbed in. Immediate Pre-Procedure Time Out. Correct Patient: Yes; Correct Procedure: Yes; Correct Site: Yes; Correct Patient Position: Yes; Correct Supplies: Yes; Dried Flammable Prep: Yes; Blood Products Available: N/A;. right radial was prepped with chloroprep then draped in the usual sterile fashion. Lidocaine 1% infiltrated to the right radial. Arterial access obtained. A 5 [place] islander TIG catheter in over wire. Catheter out. A 5 [place] islander JL3.5 catheter in over wire. Multiple views taken of left coronary artery. Catheter out. A 5 [place] islander JR4 catheter in over wire. Multiple views taken of right coronary artery. Catheter out. TR band placed. Hemostasis obtained. Post Procedure: Pulses reassessed and unchanged. PERRLA. Strong, equal hand piano teacher bilaterally. No VTE prophylaxis required. Medication's Wasted: Other = versed 1 mg. Medication's Wasted: Other = fentanyl 50 mg. Medication's Wasted: Lidocaine 1% = 18 mL. Medication's Wasted: Heparin = 1000 units. Medication's Wasted: Nitro = 49.8 mg. Total IV fluids: 54.9 mL. Contrast type used: Omnipaque 300 mgI/mL, 500 mL bottle. Contrast Material : Omnipaque 101 ml. Post-op diagnosis: non obstructive CAD. Complications: none. Estimated blood loss: 5mL-10mL. Procedure completed. A TR Band was successful obtaining hemostatsis at the Right Radial artery insertion site. [facility] Clinical Fraility Score: 2: Well. Superintendent Refuse Disposal Indications: Worsening Angina. Chest Pain Symptom Assessment: Typical Angina Symptoms. Cardiovascular Instability: No,. Patient transferred by wheelchair to 1st floor. Vital chart was stopped. Site: Right Radial artery Sheath Size: 6 Fr Hemostasis Method: TR Band Hemostasis Success: Successful Procedure Medications Start: 7:08 AM Stop: 7:08 AM Medication: Benadryl Amount: 25 mg Route: I.V. Start: 7:26 AM Stop: 7:26 AM Medication: Versed Amount: 1 mg Route: I.V. Start: 7:26 AM Stop: 7:26 AM Medication: Fentanyl Amount: 50 mcg Route: I.V. Start: 7:30 AM Stop: 7:30 AM Medication: Versed Amount: 1 mg Route: I.V. Start: 7:31 AM Stop: 7:31 AM Medication: Nitrogylcerin Amount: 200 mcg Route: I.A. Start: 7:36 AM Stop: 7:36 AM Medication: Heparin Amount: 5000 units Route: I.V. Start: 7:42 AM Stop: 7:42 AM Medication: Versed Amount: 1 mg Route: I.V. I, the attending physician, have reviewed and verified all procedure medications. Yes, all medications given per verbal order History/Risk Factors Hypertension: Yes Dyslipidemia: Yes Diabetic Therapy: Insulin Peripheral Arterial Disease (PAD): No Myocardial Infarction (OR): No Obesity: Yes Renal Disease: No Tobacco Use: Never Prior Interventions PCI: No CABG: No Valve Surgery: No Report Signatures Finalized by:Trevon Merino MD on 03/20/2020 12:44:16 PM
--- NOTE | 2020-03-20 07:56 | W.PM.OPSUD ---
Surgery/Procedure H&P Update DATE OF PROCEDURE: March 20, 2020 DATE H&P PERFORMED: 03/10/20 H&P UPDATE INFORMATION: I have reviewed H&P completed within last 30 days and I have examined patient prior to procedure PREOP DIAGNOSIS: Worsening angina PRIMARY INDICATION FOR PROCEDURE: Worsening angina PLANNED PROCEDURE: Operation Date: 03/20/20 07:00 Proposed Procedures p Cardiac Catheterization(Left) - Trevon Merino M.D PATIENT REASSESSED PRIOR TO SEDATION, WITH NO CHANGE NOTED: Yes PHYSICAL EXAM: alert, oriented x 3, clear to auscultation bilaterally and regular rate & rhythm AIRWAY EVAL/ANESTHESIA PLAN: normal airway, ASA II, Risks, benefits & alternatives of sedation and/or procedure discussed and Patient agrees to continue as planned
--- NOTE | 2020-03-20 07:58 | W.PM.OPSUD ---
Surgery/Procedure H&P Update DATE OF PROCEDURE: March 20, 2020 DATE H&P PERFORMED: 03/10/20 H&P UPDATE INFORMATION: I have reviewed H&P completed within last 30 days, I have examined patient prior to procedure and No changes to prior documentation PREOP DIAGNOSIS: Worsening angina PRIMARY INDICATION FOR PROCEDURE: Worsening angina PLANNED PROCEDURE: Operation Date: 03/20/20 07:00 Proposed Procedures p Cardiac Catheterization(Left) - Trevon Merino M.D PATIENT REASSESSED PRIOR TO SEDATION, WITH NO CHANGE NOTED: Yes PHYSICAL EXAM: alert, oriented x 3, clear to auscultation bilaterally and regular rate & rhythm AIRWAY EVAL/ANESTHESIA PLAN: normal airway, ASA II, Risks, benefits & alternatives of sedation and/or procedure discussed and Patient agrees to continue as planned
--- NOTE | 2020-03-20 11:33 | PC.CHAP ---
Pastoral Care Encounter/Spiritual Assessment Type of Contact [] Declined hvac residential service technician visit [] Patient/Family/Request visit [] Outpatient visit [] Follow-up visit [] Physician referral [] Code/Alert [x] Routine visit [] Staff referral [] Actively dying [] Patient sleeping [x] Family support [] [] Out of room [] Palliative care [] [x] Receiving care in room [] Pre-surgical visit [] Trauma [] Long length of stay [] ICU visit [] Other: Relational/Emotional Strength [] Patient feels connected with others/family/visitors/staff [x] Distress [] Loneliness/isolation [] Abandonment Spirituality of Patient [x] Person of Farzana [] Attends Caodaism of their Farzana [x] Believes in Prayer [] Reads Bible or Gnosticist materials [] There are Spiritual issues to be addressed [employer] Interventions [x] Prayer [x] Active listening [x] Non-anxious presence [x] Spiritual/emotional support [] Crisis/trauma care [x] Spiritual counseling [] Bereavement support [] Provided bereavement packet [] Provided Bible/devotional materials [] Provided toy/stuffed animal, coloring book to patient or family member [] Provided Communion [] Anointing/[place] [] Salvation [x] Completed spiritual assessment [] Other: Impact on Illness or Injury [] Angry [] Fearful [] Anxious [] Often cries [] Exhaustion [] Unable to work [] Unable to attend religion [] Unable to walk/stand [] Unable to read [] Unable to drive [] Unable to eat/drink [] Unable to sleep [] Unable to be with family [] Patient intubated [] Other: Summary Has a good attitude, feels good, needs more testing, going home soon Time spent with patient 10 mins
--- NOTE | 2020-03-20 12:17 | PC.NURSE ---
1130 TR band removed per protocol dressing applied patient educated on s/s of infections as well as activity restrictions patient verbalized understanding
--- NOTE | 2020-03-20 12:19 | PC.NURSE ---
1150 discharge instructions provided and explained patient verbalized understanding of all instructions given.
--- NOTE | 2020-03-20 12:20 | PC.NURSE ---
patient discharged home at this time all belongings and discharge instructions in hand patient assisted to wheel chair and accompanied out to transport services set up by patient. patient alert oriented and in stable condition
== END 2020-03-20 12:22 | disposition home or self-care (01) ==
LOC: CSU 08:19
PROVIDERS: Admitting Provider Internal Medicine; PCP Nurse Practitioner; Visit Provider Internal Medicine
DX: I20.0 Unstable angina (principal); E78.5 Hyperlipidemia, unspecified; I10 Essential (primary) hypertension; E11.9 Type 2 diabetes mellitus without complications; Z86.73 Personal history of transient ischemic attack (TIA), and cerebral infarction without residual deficits; Z82.49 Family history of ischemic heart disease and other diseases of the circulatory system; Z88.2 Allergy status to sulfonamides; Z88.0 Allergy status to penicillin; Z88.5 Allergy status to narcotic agent; Z79.4 Long term (current) use of insulin
CPT/HCPCS: 12345; 80048; 85025; 85610; 93454; C1769; C1887; C1894; G0378; J1200; J1644; J2250; J3010; J3490; J7030; Q9967

== ENCOUNTER → 2020-03-27 14:40 | Outpatient (BNVA) | payer MEDICAID, SELFPAY | PROVIDERS: PCP Nurse Practitioner; Visit Provider Nurse Practitioner Family | DX: I10 Essential (primary) hypertension (principal) | CPT/HCPCS: 80048 ==

== ENCOUNTER → 2020-05-08 13:40 | Outpatient (BNVA) | payer MEDICAID, SELFPAY | PROVIDERS: PCP Nurse Practitioner; Visit Provider Nurse Practitioner | DX: E11.65 Type 2 diabetes mellitus with hyperglycemia (principal); Z79.4 Long term (current) use of insulin; I10 Essential (primary) hypertension; J30.1 Allergic rhinitis due to pollen; F41.9 Anxiety disorder, unspecified; J98.09 Other diseases of bronchus, not elsewhere classified; Z86.73 Personal history of transient ischemic attack (TIA), and cerebral infarction without residual deficits; E78.00 Pure hypercholesterolemia, unspecified; M47.814 Spondylosis without myelopathy or radiculopathy, thoracic region | CPT/HCPCS: 80053; 80061; 83036; 84443 ==

== ENCOUNTER → 2020-08-07 13:37 | Outpatient (BNVA) | payer MEDICAID, SELFPAY | PROVIDERS: PCP Nurse Practitioner; Visit Provider Nurse Practitioner | DX: E11.65 Type 2 diabetes mellitus with hyperglycemia (principal); Z79.4 Long term (current) use of insulin; I10 Essential (primary) hypertension; F41.9 Anxiety disorder, unspecified | CPT/HCPCS: 80053; 81003; 83036; 85025 ==

== ENCOUNTER 2020-08-20 01:14 | Emergency (ER) | payer MEDICAID, SELFPAY ==
[2020-08-20 01:16] VITALS: BP 187/63; PULSE 102; RESP 22; TEMP 36.6; O2SAT 97; BMI 56.7
[2020-08-20 01:22] VITALS: BP 187/63; PULSE 104; RESP 22; O2SAT 96
--- NOTE | 2020-08-20 01:36 | ECG_ITS ---
[facility] Test Date: 2020-08-20 Pat Name: Jacque Levine Department: Room: Gender: Female Sound Tester: : 1960 Requested By: Rama Solitario Order Number: [id number] Paula MD: Martha Carlson M.D. Measurements Intervals [place] Rate: 95 P: 44 ME: 161 QRS: 27 QRSD: 93 T: 70 QT: 363 QTc: 456 Interpretive Statements SINUS RHYTHM NONSPECIFIC T-WAVE ABNORMALITY Compared to ECG 08/18/2019 23:39:35 No significant changes Electronically Signed On 08-20-2020 11:39:32 DISPATCH CLERK by Martha Carlson M.D. [id number]
--- NOTE | 2020-08-20 02:21 | ED_ITS ---
HPI - Fall General: Chief Complaint: Fall Stated Complaint: Shoulder pain Time Seen by Provider: 08/20/20 01:24 Source: patient and family Mode of arrival: EMS Limitations: no limitations History of Present Illness: HPI Narrative: 60-year-old female stood up today, lost her balance fell backward and landed on a glass table, complaining of left shoulder neck and back pain. This happened several hours prior to arrival. She has been able to move her arm and neck, denies any weakness or numbness. No LOC. Did not hit her head. Associated symptoms-after fall: Reports neck pain; Denies abdominal pain, chest pain or headache(s) Review of Systems General: Reports: 10 or more systems reviewed and unremarkable except in HPI and below Const: Reports: body aches; Denies: fever(s) or chills Eyes: Denies: change in vision or blurry vision Card: Denies: chest pain, palpitations or irregular heart rhythm Resp: Denies: dyspnea, pain on inspiration or chest congestion GI: Denies: abdominal pain, nausea or vomiting : Denies: flank pain, difficulty voiding or dysuria Musc: Reports: neck pain, back pain, extremity pain, joint pain, limited range of motion and muscle cramps; Denies: deformity Skin/Breast: Denies: rash, pruritus or erythema Neuro: Denies: headache(s), numbness in extremities or weakness in extremities PFS ED PFSH: Medical History Allergic rhinitis due to pollen Anxiety Asthma due to seasonal allergies Diabetes Essential (primary) hypertension History of CVA (cerebrovascular accident) Hypercholesterolemia Neck pain with history of cervical spinal surgery Obesity Osteoarthritis thoracic spine Personal history of transient ischemic attack (TIA), and cerebral infarction without residual deficits PVC (premature ventricular contraction) Surgical History H/O neck surgery C -spine with plate 2000 History of section 4 times History of endarterectomy Right History of endometrial ablation History of knee surgery Left History of tonsillectomy Family History Mother Diabetes Heart disease Hypertension Father Diabetes Heart disease Hypertension Cancer Unknown type Sister Diabetes Heart disease Hypertension Brother Diabetes Heart disease Hypertension Family/Other Stroke Social History Smoking and tobacco status: never smoked Second hand smoke exposure: No Smoking risk assessment/counseling performed?: No Alcohol intake: never Desire information about alcohol rehabilitation?: No Counseling given: No Desire information about substance/drug rehabilitation?: No Counseling given: No Caregiver/support person: No Lives independently: Yes Household members: spouse Housing: Apartment Marital status: Unknown Current occupational status: unemployed History of recent travel: No Current gender identity: Female Physical Exam Const: COMMON NORMALS: no acute distress, patient oriented x3 and alert GENERAL APPEARANCE: cooperative and anxious NUTRITIONAL APPEARANCE: obese morbidly obese HENMT: COMMON NORMALS: normocephalic and atraumatic HEAD & SCALP: normocephalic and atraumatic FACE & SINUS: normal facial exam and face symmetric Eye: COMMON NORMALS: Equal, round and reactive pupils present and EOMs intact bilaterally GENERAL EYE: appearance normal, both eyes and all related structures PUPIL: Yes Equal, round and reactive pupils present Neck/C-Spine: COMMON NORMALS: full ROM and no lymphadenopathy CERVICAL SPINE: Yes cervical ROM normal, No pain with cervical ROM, No Cervical spine tenderness, No step off deformity, Yes Paracervical muscle tenderness, Yes Paracervical spasm and Yes Trapezius muscle tenderness Chest: COMMONS NORMALS: normal inspection of the chest and normal palpation of entire chest wall Resp: COMMON NORMALS: normal respiratory effort and No use of accessory muscles EFFORT & INSPECTION: Yes able to speak in complete sentences Cardio: COMMON NORMALS: regular rate and regular rhythm RATE: regular rate RHYTHM: regular rhythm GI: COMMON NORMALS: Normal to inspection, nondistended, normoactive bowel sounds present, non-tender, No hepatosplenomegaly present and no masses INSPECTION: Yes normal to inspection AUSCULTATION: Yes normoactive bowel sounds PALPATION: Yes No hepatosplenomegaly present : COMMON NORMALS: Yes no CVA tenderness BLADDER/KIDNEY EXAM: Yes no CVA tenderness Back/Pelvis: COMMON NORMALS: no CVA tenderness THORACIC SPINE/UPPER BACK: Yes pain with ROM, Yes thoracic spinal tenderness, Yes paraspinal muscle tenderness and Yes paraspinal muscle spasm LUMBAR SPINE/LOWER BACK: Yes normal to inspection and Yes lumbar ROM normal Extremity: COMMON NORMALS: capillary refill normal Neuro: COMMON NORMALS: patient oriented x3, no focal motor deficits and no sensory deficits noted SENSORIUM/ORIENTATION: Yes alert Skin: COMMON NORMALS: no rashes or lesions noted, no wounds and no petechiae GENERAL SKIN EXAM: no rashes or lesions noted Course Vital Signs: Vital signs: Vital Signs Temperature 97.8 F 08/20/20 01:16 Pulse Rate 88 08/20/20 05:20 Respiratory Rate 18 08/20/20 05:20 Blood Pressure 163/77 08/20/20 05:20 Pulse Oximetry 94 08/20/20 05:20 MDM - Fall MDM Narrative: Medical decision making narrative: 60-year-old female with complaints of left shoulder, back, neck pain after falling at home. No significant injuries suspected based on physical exam. She has normal range of motion, normal strength and sensation. There is no bony swelling or deformities. Do not see any indication for x-rays at this time. UA likely contaminated. Follow-up with PCP in the next 3 days. Return immediately if she develops worsening pain, dizziness, repeated falls, difficulty breathing, or any other Medical Records: Attestation: I reviewed the patient's medical records. Lab Data: Attestation: I reviewed the patient's lab results. Labs: Lab Results 08/20/20 08/20/20 08/20/20 Range/Units 01:30 03:45 03:45 WBC 15.4 H (4.0-10.0) 10^3/ uL RBC 4.84 (4.1-5.3) 10^6/u L Hgb 13.5 (11.5-15.3) g/dL Hct 42.5 (37.0-47.0) % MCV 87.8 (81-99) fL MCH 27.9 L (28.0-34.0) pg MCHC 31.8 (30.0-36.0) g/dL RDW 13.8 (12.1-15.1) % Plt Count 403 H (130-400) 10^3/c mm MPV 9.2 (7.4-10.4) fL Neut % (Auto) 68.0 % Lymph % (Auto) 23.3 % Garden % (Auto) 5.1 % Eos % (Auto) 2.7 % Baso % (Auto) 0.5 % Neut # (Auto) 10.49 H (1.8-7.7) 10^3/u L Lymph # (Auto) 3.6 (0.8-4.8) 10^3/u L Garden # (Auto) 0.8 (0.2-0.9) 10^3/u L Eos # (Auto) 0.4 (0.0-0.8) 10^3/u L Baso # (Auto) 0.1 (0.0-0.1) 10^3/u L Nucleated RBC % (a uto) 0 % Nucleated RBCs # 0.0 /100WBC Sodium 137 (136-145) mmol/L Potassium 4.1 (3.5-5.1) mmol/L Chloride 100 (98-107) mmol/L Carbon Dioxide 27 (22-29) mmol/L Anion Gap 14.1 (5-19) BUN 17 (6-20) mg/dL Creatinine 0.5 (0.5-0.9) mg/dL GFR Calculation 126.7 (90-130) mL/min Glucose 362 H (65-115) mg/dL Calculated Osmolal ity 300 H (285-295) mOsm/k g Calcium 9.0 (8.5-10.5) mg/dL Magnesium 1.5 L (1.7-2.3) mg/dL Total Bilirubin 0.4 (0.15-1.2) mg/dL AST 24 (0-32) U/L ALT 25 (0-33) U/L Alkaline Phosphata se 103 (35-105) IU/L Total Protein 6.9 (6.6-8.7) g/dL Albumin 3.6 (3.5-5.2) g/dL Globulin 3.3 (1.3-4.6) g/dL Urine Color Yellow (Yellow) Urine Appearance Hazy A (CLEAR) Urine pH 7 (5-7) Ur Specific Gravit y 1.005 (1.005-1.030) Urine Protein Trace (Negative) Urine Glucose (UA) 4+ H (Normal) Urine Ketones 1+ H (Negative) Urine Blood Neg (Negative) Urine Nitrate Negative (Negative) Urine Bilirubin Neg (Negative) Urine Urobilinogen 1 H (Negative) mg/dL Ur Leukocyte Kriss ase 1+ H (Negative) Urine RBC 0-4 H (0-2) /hpf Urine WBC 10-15 H (0-5) /hpf Ur Squamous Epith Cells 15-25 H (0-5) /hpf Amorphous Sediment Not Reportable Urine Bacteria 1+ H (NONE) /hpf Urine Mucus 1+ /hpf Discharge Plan Discharge Patient Disposition: Home Clinical Impression: Sprain of left shoulder, Fall as cause of accidental injury at home as place of occurrence Diabetes Qualifiers: Diabetes mellitus type: type 2 Diabetes mellitus longterm insulin use: with longterm use Diabetes mellitus complication status: with other specified complication Qualified Code(s): E11.69 - Type 2 diabetes mellitus with other specified complication Condition: Stable Prescriptions: No Action albuterol sulfate 2.5 mg /3 mL (0.083 %) solution for nebulization 2.5 mg INHALATION Q4H PRN (Reason: shortness of breath or wheezing) Qty: 75 RF: 2 (DME) pen needle, diabetic 33 gauge x 5/32 needle See Rx Instructions .ROUTE .MEDSUPPLY Qty: 100 RF: 5 lancets miscellaneous BID RF: 0 nitroglycerin [Nitrostat] 0.4 mg tablet, sublingual 0.4 mg SUBLINGUAL Q5M PRN (Reason: Chest Pain) RF: 0 travoprost 0.004 % drops ophthalmic (eye) .HC RF: 0 Ozempic 0.25 mg or 0.5 mg(2 mg/1.5 mL) pen injector 0.5 mg SUBCUT .weekly Qty: 1.5 RF: 2 albuterol sulfate [Ventolin HFA] 90 mcg/actuation HFA aerosol inhaler 2 puff INHALATION Q4H PRN (Reason: shortness of breath or wheezing) Qty: 18 RF: 2 amlodipine 2.5 mg tablet 2.5 mg PO DAILY Qty: 30 RF: 2 cetirizine 10 mg tablet 10 mg PO DAILY Qty: 30 RF: 2 chlorthalidone 25 mg tablet 25 mg PO DAILY Qty: 30 RF: 2 citalopram [Celexa] 40 mg tablet 40 mg PO DAILY Qty: 30 RF: 2 clopidogrel [Plavix] 75 mg tablet 75 mg PO DAILY Qty: 30 RF: 2 doxepin 100 mg capsule 100 mg PO DAILY Qty: 30 RF: 2 insulin aspart U-100 [Novolog Flexpen U-100 Insulin] 100 unit/mL (3 mL) insulin pen See Rx Instructions SUBCUT TID Qty: 15 RF: 2 Levemir FlexTouch U-100 Insuln 100 unit/mL (3 mL) insulin pen 140 unit SUBCUT DAILY Qty: 45 RF: 2 lisinopril 40 mg tablet 40 mg PO DAILY Qty: 30 RF: 2 montelukast [Singulair] 10 mg tablet 10 mg PO DAILY Qty: 30 RF: 2 (DME) VixOne Nebulizer-Adult Mask Misc See Rx Instructions .ROUTE .MEDSUPPLY Qty: 1 RF: 0 topiramate [Topamax] 50 mg tablet 50 mg PO BID Qty: 60 RF: 2 (DME) blood-glucose meter [OneTouch Ultra2 Meter] Kit See Rx Instructions .ROUTE .MEDSUPPLY Qty: 1 RF: 0 fluconazole [Diflucan] 150 mg tablet 150 mg PO DAILY Qty: 1 RF: 0 (DME) OneTouch Ultra Blue Test Strip Strip See Rx Instructions .ROUTE .MEDSUPPLY Qty: 100 RF: 5 Jardiance 10 mg tablet 10 mg PO QAM Qty: 30 RF: 2 rosuvastatin [Crestor] 40 mg tablet 40 mg PO DAILY Qty: 30 RF: 2 Discharge Orders: Discharge ED (Routine); Ordered 08/20/20 Ordered By: Rama Solitario Referrals: Brandi An, PUBLIC HEALTH INSPECTOR-C [Primary Care Provider] - Discharge Diet: Diabetic Discharge Activity: Resume usual activity Patient Instructions: Shoulder Sprain (ED), Fall Prevention (ED) Activity Restrictions/Additional Instructions: Make sure to call your primary care doctor to set up a follow-up appointment soon as possible. Try not to turn or change positions quickly as this may cause dizziness. Return immediately to the ER if you develop worsening headache, fainting, fever, vomiting, vision changes, confusion, or any other concerning changes. Coding Level of Care Code ED Environmental Protection Specialist for Kim Simmons
[2020-08-20 02:22] VITALS: BP 175/72; RESP 18; O2SAT 94
[2020-08-20 02:44] LABS: Bilirubin Urine Neg (Negative); Blood Urine Neg (Negative); Glucose Urine UA 4+ (Normal); Ketones Urine 1+ (Negative); Nitrate Urine Negative (Negative); Protein Urine Trace (Negative); Specific Gravity, Urine 1.005 (1.005-1.030); Urine Appearance Hazy (CLEAR); Urine Color Yellow (Yellow); Urobilinogen Urine 1 mg/dL (Negative); pH Urine 7 (5-7)
[2020-08-20 02:45] LABS: Leukocyte Esterase Urine 1+ (Negative); RBC Urine 0-4 /hpf (0-2)
[2020-08-20 02:46] LABS: Bacteria Urine 1+ /hpf; Mucus Urine 1+ /hpf; Squamous Epithelial Cell Urine 15-25 /hpf (0-5)
[2020-08-20 02:47] LABS: Add Urine Culture? No
[2020-08-20 04:06] LABS: Basophils # 0.1 10^3/uL (0.0-0.1); Basophils % 0.5 %; Eosinophils # 0.4 10^3/uL (0.0-0.8); Eosinophils % 2.7 %; Hematocrit 42.5 % (37.0-47.0); Hemoglobin 13.5 g/dL (11.5-15.3); Lymphocytes # 3.6 10^3/uL (0.8-4.8); Lymphocytes % 23.3 %; Mean Corpuscular HGB Conc 31.8 g/dL (30.0-36.0); Mean Corpuscular Hemoglobin 27.9 pg (28.0-34.0); Mean Corpuscular Volume 87.8 fL (81-99); Mean Platelet Volume 9.2 fL (7.4-10.4); Monocytes # 0.8 10^3/uL (0.2-0.9); Monocytes % 5.1 %; Neutrophils # 10.49 10^3/uL (1.8-7.7); Nucleated Red Blood Cells % 0 %; Platelet Count 403 10^3/cmm (130-400); Red Blood Count 4.84 10^6/uL (4.1-5.3); Red Cell Distribution Width 13.8 % (12.1-15.1); White Blood Count 15.4 10^3/uL (4.0-10.0)
[2020-08-20 04:30] LABS: Alanine Aminotransferase 25 U/L (0-33); Albumin Level 3.6 g/dL (3.5-5.2); Alkaline Phosphatase 103 IU/L (35-105); Anion Gap 14.1 (5-19); Aspartate Amino Transferase 24 U/L (0-32); Blood Urea Nitrogen 17 mg/dL (6-20); Carbon Dioxide 27 mmol/L (22-29); Chloride 100 mmol/L (98-107); Globulin 3.3 g/dL (1.3-4.6); Glomerular Filtration Rate 126.7 mL/min (90-130); Glucose 362 mg/dL (65-115); Magnesium 1.5 mg/dL (1.7-2.3); Osmolality Calculated 300 mOsm/kg (285-295); Potassium 4.1 mmol/L (3.5-5.1); Sodium 137 mmol/L (136-145); Total Bilirubin 0.4 mg/dL (0.15-1.2); Total Protein 6.9 g/dL (6.6-8.7)
[2020-08-20 04:39] VITALS: BP 171/80; PULSE 86; RESP 18; O2SAT 94
[2020-08-20 05:20] VITALS: BP 163/77; PULSE 88; RESP 18; O2SAT 94
== END 2020-08-20 06:05 | disposition home or self-care (01) ==
PROVIDERS: Emergency Provider Family Medicine; PCP Nurse Practitioner
DX: S43.402A Unspecified sprain of left shoulder joint, initial encounter (principal); E11.69 Type 2 diabetes mellitus with other specified complication; W19.XXXA Unspecified fall, initial encounter; Z79.4 Long term (current) use of insulin; Z86.73 Personal history of transient ischemic attack (TIA), and cerebral infarction without residual deficits; I10 Essential (primary) hypertension
CPT/HCPCS: 80053; 81001; 83735; 85025; 93005; 99282; 99283

== ENCOUNTER 2020-09-05 09:23 | Outpatient (CLI) | payer MEDICAID, SELFPAY ==
--- NOTE | 2020-09-05 09:35 | US_ITS ---
WS: [id number] INDICATION: Left upper extremity pain TECHNIQUE: Ultrasound area of concern left upper extremity. FINDINGS: Ultrasound soft tissue area of concern left arm. No evidence of underlying cystic or solid lesions. Normal underlying subcutaneous tissues. Visualized vessels are patent in the area of concern . No suspicious findings. US/US soft tissue/extremity [id number] IMPRESSION: Normal soft tissue ultrasound area of concern.
== END 2020-09-05 09:24 | disposition home or self-care (01) ==
LOC: RAD 09:23
PROVIDERS: PCP Nurse Practitioner; Visit Provider Nurse Practitioner
DX: M25.522 Pain in left elbow (principal)
CPT/HCPCS: 76882

== ENCOUNTER → 2020-12-04 15:43 | Outpatient (BNVA) | payer MEDICAID, SELFPAY | PROVIDERS: PCP Nurse Practitioner; Visit Provider Nurse Practitioner | DX: E11.69 Type 2 diabetes mellitus with other specified complication (principal); Z79.4 Long term (current) use of insulin; I10 Essential (primary) hypertension; J98.09 Other diseases of bronchus, not elsewhere classified; Z86.73 Personal history of transient ischemic attack (TIA), and cerebral infarction without residual deficits; E11.9 Type 2 diabetes mellitus without complications; E11.65 Type 2 diabetes mellitus with hyperglycemia; E78.00 Pure hypercholesterolemia, unspecified; M47.814 Spondylosis without myelopathy or radiculopathy, thoracic region; J45.909 Unspecified asthma, uncomplicated | CPT/HCPCS: 80053; 80061; 81000; 83036; 83735; 84443 ==

== ENCOUNTER 2020-12-27 02:52 | Emergency (ER) | payer MEDICAID, SELFPAY ==
[2020-12-27] VITALS (9 sets, daily range): BP systolic 104–160; BP diastolic 61–82; PULSE 72–86; RESP 17–21; TEMP 36.8; O2SAT 92–99; BMI 58.1
--- NOTE | 2020-12-27 03:03 | CTR_ITS ---
PROCEDURE INFORMATION: Exam: CT Abdomen And Pelvis Without Contrast Exam date and time: 12/27/2020 3:03 AM Age: 60 years old Clinical indication: Abdominal pain; Flank; Right; Additional info: Flank pain TECHNIQUE: Imaging protocol: Computed tomography of the abdomen and pelvis without contrast. Radiation optimization: All CT scans at this facility use at least one of these dose optimization techniques: automated exposure control; mA and/or kV adjustment per patient size (includes targeted exams where dose is matched to clinical indication); or iterative reconstruction. COMPARISON: CT abdomen pelvis w con* [id number] 08/18/2019 10:02 PM RADIATION DOSE METRICS: Total DLP (mGy-cm): 2097.76 FINDINGS: Lungs: The lung bases are clear. No effusion Liver: Normal. No mass. Gallbladder and bile ducts: No wall thickening, pericholecystic fluid or stones. Pancreas: Normal. No ductal dilation. Spleen: Normal. No splenomegaly. Adrenal glands: 4.5 cm fat density right adrenal nodule consistent with a lipid rich adrenal adenoma. Previously, measured 4.2 cm. Kidneys and ureters: Normal. No hydronephrosis. Stomach and bowel: Diverticulosis without diverticulitis. Appendix: No evidence of appendicitis. Intraperitoneal space: Unremarkable. No free air. No significant fluid collection. Vasculature: Unremarkable. No abdominal aortic aneurysm. Lymph nodes: Unremarkable. No enlarged lymph nodes. Urinary bladder: Unremarkable as visualized. Reproductive: Unremarkable as visualized. Bones/joints: Unremarkable. No acute fracture. Soft tissues: Unremarkable. CT/CT kidney stone [id number] IMPRESSION: 1. No cause for acute pain is identified. 2. Diverticulosis without diverticulitis. 3. 4.5 cm fat density right adrenal nodule consistent with a lipid rich adrenal adenoma. Previously, measured 4.2 cm. Radiation Dose CTDIVOL = (mGy): DLP = 2097.76 (mGy-cm)
[2020-12-27 03:16] LABS: Basophils # 0.1 10^3/uL (0.0-0.1); Basophils % 0.5 %; Eosinophils # 0.5 10^3/uL (0.0-0.8); Eosinophils % 2.9 %; Hematocrit 40.8 % (37.0-47.0); Hemoglobin 13.1 g/dL (11.5-15.3); Lymphocytes # 4.3 10^3/uL (0.8-4.8); Lymphocytes % 27.7 %; Mean Corpuscular HGB Conc 32.1 g/dL (30.0-36.0); Mean Corpuscular Hemoglobin 28.6 pg (28.0-34.0); Mean Corpuscular Volume 89.1 fL (81-99); Mean Platelet Volume 9.4 fL (7.4-10.4); Monocytes # 1.1 10^3/uL (0.2-0.9); Monocytes % 6.9 %; Neutrophils # 9.54 10^3/uL (1.8-7.7); Neutrophils % 61.5 %; Nucleated Red Blood Cells % 0 %; Platelet Count 386 10^3/cmm (130-400); Red Blood Count 4.58 10^6/uL (4.1-5.3); Red Cell Distribution Width 13.7 % (12.1-15.1); White Blood Count 15.5 10^3/uL (4.0-10.0)
[2020-12-27 03:31] LABS: Alanine Aminotransferase 17 U/L (0-33); Albumin Level 3.3 g/dL (3.5-5.2); Alkaline Phosphatase 89 IU/L (35-105); Anion Gap 14.7 (5-19); Aspartate Amino Transferase 16 U/L (0-32); Blood Urea Nitrogen 14 mg/dL (6-20); C Reactive Protein 40.8 mg/L (0.0-4.9); Calcium 8.6 mg/dL (8.5-10.5); Carbon Dioxide 27 mmol/L (22-29); Chloride 103 mmol/L (98-107); Globulin 3.2 g/dL (1.3-4.6); Glomerular Filtration Rate 126.7 mL/min (90-130); Glucose 269 mg/dL (65-115); Lipase 26 U/L (13-60); Osmolality Calculated 302 mOsm/kg (285-295); Potassium 3.7 mmol/L (3.5-5.1); Sodium 141 mmol/L (136-145); Total Bilirubin 0.5 mg/dL (0.15-1.2); Total Protein 6.5 g/dL (6.6-8.7)
[2020-12-27] MEDS: sodium chloride 0.9% 1,000 ML 999 ML IV (03:40)
[2020-12-27] MEDS: ondansetron 2 mg/ML SDV 2 mL 4 MG IVP (03:42)
[2020-12-27] MEDS: HYDROmorphone 1 mg/mL INJ 1 mL IVP (03:45)
[2020-12-27 04:03] LABS: Add Urine Microscopic? NO; Charge for UA Resulting for Rev
[2020-12-27 04:06] LABS: Bilirubin Urine Neg (Negative); Blood Urine Neg (Negative); Glucose Urine UA 4+ (Normal); Ketones Urine Negative (Negative); Leukocyte Esterase Urine Negative (Negative); Nitrate Urine Negative (Negative); Protein Urine Neg (Negative); Specific Gravity, Urine 1.015 (1.005-1.030); Urine Appearance Clear (CLEAR); Urine Color Yellow (Yellow); Urobilinogen Urine Norm (Negative); pH Urine 5 (5-7)
--- NOTE | 2020-12-27 04:49 | ED_ITS ---
HPI - Abdominal Pain General: Chief Complaint: Abdominal Pain Stated Complaint: right flank pain Time Seen by Provider: 12/27/20 02:54 History of Present Illness: HPI narrative: 60-year-old female complains of right-sided belly pain/flank pain that radiated once to her groin. It seems to be a bit better now. She is nauseated. No throwing up. She has had some diarrhea no blood in the stool MD elicited complaint: flank pain Pertinent past history: kidney stones Onset (ago): hour(s) Pain Consistency: constant Location: R flank Severity: moderate Quality: stabbing and aching Radiation: suprapubic Migration to: no migration Exacerbating factors: movement Relieving factors: nothing Associated Symptoms: Reports diarrhea, loose stools and nausea; Denies chills, dysuria, fever(s), hematuria, hematemesis, syncope and vomiting Review of Systems Const: Denies: fever(s) or chills ENMT: Denies: throat pain Card: Denies: chest pain or syncope Resp: Denies: dyspnea, productive cough or non-productive cough GI: Reports: nausea and diarrhea; Denies: vomiting or hematemesis : Reports: flank pain; Denies: difficulty voiding, dysuria or hematuria Neuro: Denies: confusion PFSH ED PFSH: Medical History Allergic rhinitis due to pollen Anxiety Asthma due to seasonal allergies Diabetes Essential (primary) hypertension History of CVA (cerebrovascular accident) Hypercholesterolemia Neck pain with history of cervical spinal surgery Obesity Osteoarthritis thoracic spine Personal history of transient ischemic attack (TIA), and cerebral infarction without residual deficits PVC (premature ventricular contraction) Surgical History H/O neck surgery C -spine with plate 2000 History of section 4 times History of endarterectomy Right History of endometrial ablation History of knee surgery Left History of tonsillectomy Family History Mother Diabetes Heart disease Hypertension Father Diabetes Heart disease Hypertension Cancer Unknown type Sister Diabetes Heart disease Hypertension Brother Diabetes Heart disease Hypertension Family/Other Stroke Social History Smoking and tobacco status: former smoker Second hand smoke exposure: No Smoking risk assessment/counseling performed?: No Alcohol intake: never Desire information about alcohol rehabilitation?: No Counseling given: No Desire information about substance/drug rehabilitation?: No Counseling given: No Caregiver/support person: No Lives independently: Yes Household members: spouse Housing: Apartment Marital status: Unknown Current occupational status: unemployed History of recent travel: No Current gender identity: Female Physical Exam Const: GENERAL APPEARANCE: well developed; not comfortable ORIENTATION/CONSCIOUSNESS: Yes oriented to person, Yes oriented to place and Yes oriented to time HENMT: COMMON NORMALS: normocephalic, external ears normal and Normal external nose present HEAD & SCALP: normocephalic FACE & SINUS: normal facial exam NOSE: Normal external nose present and No nasal discharge present EXTERNAL EAR: Yes external ears normal Eye: COMMON NORMALS: Equal, round and reactive pupils present, EOMs intact bilaterally and conjunctivae normal EYELID: eyelids normal CONJUNCTIVA: Yes conjunctivae normal PUPIL: Yes Equal, round and reactive pupils present Neck/C-Spine: GENERAL: No tracheal deviation Chest: COMMONS NORMALS: normal inspection of the chest CHEST: No tenderness Resp: COMMON NORMALS: clear to auscultation bilaterally EFFORT & INSPECTION: No tachypneic, No respiratory distress, No retractions, No uses accessory muscles and No tracheal deviation AUSCULTATION: clear to auscultation bilaterally, no rhonchi, no wheezes and lung sounds not diminished Cardio: COMMON NORMALS: regular rate and regular rhythm RATE: regular rate RHYTHM: regular rhythm HEART SOUNDS: no murmurs PERIPHERAL PULSES: radial pulses present GI: INSPECTION: No abdominal distension AUSCULTATION: No Hyperactive bowel sounds present and No Hypoactive bowel sounds present PALPATION: Yes Tenderness to palpation present (GI) Details: RLQ and RUQ, Yes Guarding due to palpation present (GI) and No Rigid due to palpation PERCUSSION: no dullness to percussion and no tympanic to percussion : BLADDER/KIDNEY EXAM: Yes CVA tenderness on the right Back/Pelvis: GENERAL BACK: Yes CVA tenderness Neuro: SENSORIUM/ORIENTATION: Yes oriented to person, Yes oriented to place and Yes oriented to time Psych: COMMON NORMALS: mental status grossly normal Skin: COMMON NORMALS: no rashes or lesions noted GENERAL SKIN EXAM: no rashes or lesions noted Course Vital Signs: Vital signs: Vital Signs Temperature 98.3 F 12/27/20 02:56 Pulse Rate 73 12/27/20 06:47 Respiratory Rate 21 H 12/27/20 06:47 Blood Pressure 104/61 12/27/20 06:47 Pulse Oximetry 95 12/27/20 06:47 MDM - Abdominal Pain MDM Narrative: Medical decision making narrative: White blood cell count is 15.5. No significant left shift. Blood work is essentially benign. Urinalysis is negative. CT scan shows no cause for acute pain. Pain is improved after pain medication. She will be allowed home Lab Data: Labs: Lab Results 12/27/20 12/27/20 12/27/20 Range/Units 03:06 03:06 03:30 WBC 15.5 H (4.0-10.0) 10^3/ uL RBC 4.58 (4.1-5.3) 10^6/u L Hgb 13.1 (11.5-15.3) g/dL Hct 40.8 (37.0-47.0) % MCV 89.1 (81-99) fL MCH 28.6 (28.0-34.0) pg MCHC 32.1 (30.0-36.0) g/dL RDW 13.7 (12.1-15.1) % Plt Count 386 (130-400) 10^3/c mm MPV 9.4 (7.4-10.4) fL Neut % (Auto) 61.5 % Lymph % (Auto) 27.7 % [place] % (Auto) 6.9 % Eos % (Auto) 2.9 % Baso % (Auto) 0.5 % Neut # (Auto) 9.54 H (1.8-7.7) 10^3/u L Lymph # (Auto) 4.3 (0.8-4.8) 10^3/u L [place] # (Auto) 1.1 H (0.2-0.9) 10^3/u L Eos # (Auto) 0.5 (0.0-0.8) 10^3/u L Baso # (Auto) 0.1 (0.0-0.1) 10^3/u L Nucleated RBC % (a uto) 0 % Nucleated RBCs # 0.0 /100WBC Sodium 141 (136-145) mmol/L Potassium 3.7 (3.5-5.1) mmol/L Chloride 103 (98-107) mmol/L Carbon Dioxide 27 (22-29) mmol/L Anion Gap 14.7 (5-19) BUN 14 (6-20) mg/dL Creatinine 0.5 (0.5-0.9) mg/dL GFR Calculation 126.7 (90-130) mL/min Glucose 269 H (65-115) mg/dL Calculated Osmolal ity 302 H (285-295) mOsm/k g Calcium 8.6 (8.5-10.5) mg/dL Total Bilirubin 0.5 (0.15-1.2) mg/dL AST 16 (0-32) U/L ALT 17 (0-33) U/L Alkaline Phosphata se 89 (35-105) IU/L C-Reactive Protein 40.8 H (0.0-4.9) mg/L Total Protein 6.5 L (6.6-8.7) g/dL Albumin 3.3 L (3.5-5.2) g/dL Globulin 3.2 (1.3-4.6) g/dL Lipase 26 (13-60) U/L Urine Color Yellow (Yellow) Urine Appearance Clear (CLEAR) Urine pH 5 (5-7) Ur Specific Gravit y 1.015 (1.005-1.030) Urine Protein Neg (Negative) Urine Glucose (UA) 4+ H (Normal) Urine Ketones Negative (Negative) Urine Blood Neg (Negative) Urine Nitrate Negative (Negative) Urine Bilirubin Neg (Negative) Urine Urobilinogen Norm (Negative) mg/dL Ur Leukocyte Kriss ase Negative (Negative) Discharge Plan Discharge Patient Disposition: Home Clinical Impression: Abdominal pain Qualifiers: Abdominal location: right lower quadrant Qualified Code(s): R10.31 - Right lower quadrant pain Condition: Stable Prescriptions: New hydrocodone-acetaminophen 5-325 mg tablet 1 tab PO Q8H PRN (Reason: pain) Qty: 7 RF: 0 Zofran 4 mg tablet 4 mg PO Q6H PRN (Reason: nausea and vomiting) Qty: 10 RF: 0 No Action albuterol sulfate 2.5 mg /3 mL (0.083 %) solution for nebulization 2.5 mg INHALATION Q4H PRN (Reason: shortness of breath or wheezing) Qty: 75 RF: 2 (DME) pen needle, diabetic 33 gauge x 5/32 needle See Rx Instructions .ROUTE .MEDSUPPLY Qty: 100 RF: 5 lancets miscellaneous BID RF: 0 nitroglycerin [Nitrostat] 0.4 mg tablet, sublingual 0.4 mg SUBLINGUAL Q5M PRN (Reason: Chest Pain) RF: 0 travoprost 0.004 % drops ophthalmic (eye) .HC RF: 0 citalopram [Celexa] 40 mg tablet 40 mg PO DAILY Qty: 30 RF: 2 Hold Instructions: Patient No Longer Taking (DME) VixOne Nebulizer-Adult Mask Misc See Rx Instructions .ROUTE .MEDSUPPLY Qty: 1 RF: 0 albuterol sulfate [Ventolin HFA] 90 mcg/actuation HFA aerosol inhaler 2 puff INHALATION Q4H PRN (Reason: shortness of breath or wheezing) Qty: 18 RF: 2 cetirizine 10 mg tablet 10 mg PO DAILY Qty: 30 RF: 2 clopidogrel [Plavix] 75 mg tablet 75 mg PO DAILY Qty: 30 RF: 2 insulin aspart U-100 [Novolog Flexpen U-100 Insulin] 100 unit/mL (3 mL) insulin pen See Rx Instructions SUBCUT TID Qty: 15 RF: 2 lisinopril 40 mg tablet 40 mg PO DAILY Qty: 30 RF: 2 montelukast [Singulair] 10 mg tablet 10 mg PO DAILY Qty: 30 RF: 2 rosuvastatin [Crestor] 40 mg tablet 40 mg PO DAILY Qty: 30 RF: 2 Stiolto Respimat 2.5-2.5 mcg/actuation mist 2 puff inhalation Q24H Qty: 4 RF: 2 Ozempic 0.25 mg or 0.5 mg(2 mg/1.5 mL) pen injector 0.5 mg SUBCUT .weekly Qty: 1.5 RF: 1 Tresiba FlexTouch U-200 200 unit/mL (3 mL) insulin pen 140 unit SUBCUT DAILY Qty: 21 RF: 1 chlorthalidone 25 mg tablet 25 mg PO DAILY Qty: 30 RF: 2 metoprolol succinate [Toprol XL] 50 mg tablet extended release 24 hr 50 mg PO .take with suppertime Qty: 30 RF: 1 (DME) blood-glucose meter [OneTouch Ultra2 Meter] Kit See Rx Instructions .ROUTE .MEDSUPPLY Qty: 1 RF: 0 fluconazole [Diflucan] 150 mg tablet 150 mg PO DAILY Qty: 1 RF: 0 (DME) OneTouch Ultra Blue Test Strip Strip See Rx Instructions .ROUTE .MEDSUPPLY Qty: 100 RF: 5 Discharge Orders: Discharge ED (Routine); Ordered 12/27/20 Ordered By: Edwin Patel Referrals: Brandi An FNP-C [Primary Care Provider] - 4-7 days Discharge Diet: Clear Liquid Discharge Activity: Increase activity as tolerated Patient Instructions: Abdominal Pain (ED), Opioid Safety Activity Restrictions/Additional Instructions: Return for worsening pain despite treatment, vomiting liquids or medications, blood in the stool, fever greater than 100, other concerning symptoms. Coding Level of Care Code ED Chemical Lab Supervisor for Kim Simmons
[2020-12-27] MEDS: HYDROmorphone 1 mg/mL INJ 1 mL 0.5 MG IVP (05:50)
== END 2020-12-27 07:06 | disposition home or self-care (01) ==
PROVIDERS: Emergency Provider Emergency Medicine; PCP Nurse Practitioner
DX: R10.31 Right lower quadrant pain (principal); Z79.02 Long term (current) use of antithrombotics/antiplatelets; Z79.4 Long term (current) use of insulin; E11.9 Type 2 diabetes mellitus without complications; I10 Essential (primary) hypertension; Z86.73 Personal history of transient ischemic attack (TIA), and cerebral infarction without residual deficits; Z87.891 Personal history of nicotine dependence
CPT/HCPCS: 74176; 80053; 81003; 83690; 85025; 86140; 96361; 96374; 96375; 96376; 99283; J1170; J2405; J7030

== ENCOUNTER 2021-01-18 15:09 | Emergency (ER) | payer MEDICAID, SELFPAY ==
[2021-01-18 17:37] VITALS: BP 244/113; PULSE 95; RESP 20; TEMP 36.5; O2SAT 97; BMI 58.1
[2021-01-18 17:41] VITALS: BP 168/92; PULSE 88; RESP 17; O2SAT 95
[2021-01-18 17:55] LABS: Basophils # 0.1 10^3/uL (0.0-0.1); Basophils % 0.6 %; Eosinophils # 0.4 10^3/uL (0.0-0.8); Eosinophils % 2.3 %; Hemoglobin 14.3 g/dL (11.5-15.3); Lymphocytes % 19.5 %; Mean Corpuscular HGB Conc 32.5 g/dL (30.0-36.0); Mean Corpuscular Hemoglobin 28.3 pg (28.0-34.0); Mean Corpuscular Volume 87.1 fL (81-99); Mean Platelet Volume 9.2 fL (7.4-10.4); Monocytes # 0.7 10^3/uL (0.2-0.9); Monocytes % 4.2 %; Neutrophils # 11.28 10^3/uL (1.8-7.7); Nucleated Red Blood Cells % 0 %; Platelet Count 396 10^3/cmm (130-400); Red Blood Count 5.05 10^6/uL (4.1-5.3); Red Cell Distribution Width 13.3 % (12.1-15.1); White Blood Count 15.5 10^3/uL (4.0-10.0)
[2021-01-18 18:00] VITALS: BP 203/95; PULSE 87; RESP 16; O2SAT 95
--- NOTE | 2021-01-18 18:08 | ED_ITS ---
HPI - Abdominal Pain General: Chief Complaint: Abdominal Pain Stated Complaint: RLQ ABD PAIN Time Seen by Provider: 01/18/21 17:44 History of Present Illness: HPI narrative: Patient is a 60-year-old female who comes to the ED with flank pain and abdominal pain. Patient was seen here for right flank pain back on December 27 and diagnosed with abdominal pain of unknown cause. Patient says her PCP is getting her set up with Dr. Mendoza, due to some crystals seen in . Patient says her right flank pain has not improved over the past couple weeks. She also says that she is now having some left lower quadrant abdominal pain that started a couple days ago after she says she lifted a watermelon. Patient says she has daily bowel movements but their consistency is a regular and she states that sometimes she has diarrhea/liquid stool another time she has more of a pasty type stool. Denies any blood in the stool. Denies any fever, chills, nausea/vomiting, dysuria or hematuria. Associated Symptoms: Denies chills, constipation, diarrhea, dysuria, fever(s), hematochezia, hematuria, nausea and vomiting Review of Systems Const: Denies: fever(s), chills or fatigue Eyes: Denies: change in vision or eye discomfort ENMT: Denies: throat pain, odynophagia, nasal discharge or nasal congestion Card: Denies: chest pain, palpitations, edema, swelling of feet/ankles, dyspnea on exertion or orthopnea Resp: Denies: dyspnea, productive cough or non-productive cough GI: Reports: abdominal pain; Denies: nausea, vomiting, diarrhea, constipation or hematochezia : Denies: flank pain, dysuria or hematuria Musc: Reports: back pain; Denies: neck pain or extremity swelling Skin/Breast: Denies: rash or new lesions Neuro: Denies: headache(s), numbness in extremities or weakness in extremities PFSH ED PFSH: Medical History Allergic rhinitis due to pollen Anxiety Asthma due to seasonal allergies Diabetes Essential (primary) hypertension History of CVA (cerebrovascular accident) Hypercholesterolemia Neck pain with history of cervical spinal surgery Obesity Osteoarthritis thoracic spine Personal history of transient ischemic attack (TIA), and cerebral infarction without residual deficits PVC (premature ventricular contraction) Surgical History H/O neck surgery C -spine with plate 2000 History of section 4 times History of endarterectomy Right History of endometrial ablation History of knee surgery Left History of tonsillectomy Family History Mother Diabetes Heart disease Hypertension Father Diabetes Heart disease Hypertension Cancer Unknown type Sister Diabetes Heart disease Hypertension Brother Diabetes Heart disease Hypertension Family/Other Stroke Social History Smoking and tobacco status: former smoker Second hand smoke exposure: No Smoking risk assessment/counseling performed?: No Alcohol intake: never Desire information about alcohol rehabilitation?: No Counseling given: No Desire information about substance/drug rehabilitation?: No Counseling given: No Caregiver/support person: No Lives independently: Yes Household members: spouse Housing: Apartment Marital status: Unknown Current occupational status: unemployed History of recent travel: No Current gender identity: Female Physical Exam Const: COMMON NORMALS: no acute distress, patient oriented x3 and alert GENERAL APPEARANCE: cooperative and comfortable HENMT: COMMON NORMALS: normocephalic HEAD & SCALP: normocephalic MOUTH: Normal oral and palatal mucosa present THROAT: posterior oropharynx normal and uvula midline Neck/C-Spine: COMMON NORMALS: supple GENERAL: Yes normal visual inspection Resp: COMMON NORMALS: normal respiratory effort, No retractions, No use of accessory muscles and clear to auscultation bilaterally AUSCULTATION: clear to auscultation bilaterally Cardio: COMMON NORMALS: regular rate, regular rhythm, S1 normal heart sound present, S2 normal heart sound present, No gallops present (Cardio), No clicks present (Cardio), No murmurs present (Cardio) and Peripheral pulses 2+ throughout RATE: regular rate RHYTHM: regular rhythm HEART SOUNDS: S1 normal heart sound present and S2 normal heart sound present PERIPHERAL PULSES: Peripheral pulses 2+ throughout GI: COMMON NORMALS: Normal to inspection, nondistended, normoactive bowel sounds present, Soft to palpation, non-tender and no masses PALPATION: Yes Soft to palpation and Yes Tenderness to palpation present (GI) Details: LLQ (mild tenderness) : COMMON NORMALS: Yes no CVA tenderness BLADDER/KIDNEY EXAM: Yes no CVA tenderness Back/Pelvis: COMMON NORMALS: no CVA tenderness LUMBAR SPINE/LOWER BACK: Yes paraspinal muscle tenderness Lumbar paraspinal muscle tenderness: right Extremity: COMMON NORMALS: normal to inspection Neuro: COMMON NORMALS: patient oriented x3 SENSORIUM/ORIENTATION: Yes alert GAIT: Yes Normal gait present Skin: GENERAL SKIN EXAM: dry skin Course Vital Signs: Vital signs: Vital Signs Temperature 97.7 F 01/18/21 17:37 Pulse Rate 86 01/18/21 21:37 Respiratory Rate 18 01/18/21 21:37 Blood Pressure 163/90 01/18/21 21:37 Pulse Oximetry 94 01/18/21 21:37 MDM - Abdominal Pain MDM Narrative: Medical decision making narrative: Patient is a 60-year-old female comes to the ED with left lower quadrant abdominal pain and some back pain. Patient was seen here in the ED for same complaint on December 27. Patient appears nontoxic and is in no acute distress. Denies any nausea/vomiting. She has some mild left lower quadrant abdominal tenderness and some right lumbar paraspinal muscle tenderness as well. The rest of exam is benign. Vitals stable. She has a white blood cell count of 15.5, which is the same as it was back on December 23. The rest of CBC, CMP and lipase were unremarkable. CT of abdomen pelvis showed no acute findings. It did note the adrenal gland mass and she was made aware of previously. She says her primary care physician is currently in the process of getting set up with Dr. Mendoza for follow-up. Patient was diagnosed with abdominal pain and low back pain and discharged home. She was told to follow-up with her PCP in 7 days for reevaluation. Return to E D precautions given. Patient understood agree with plan. Lab Data: Attestation: I reviewed the patient's lab results. Labs: Lab Results 01/18/21 01/18/21 01/18/21 Range/Units 17:43 17:43 18:32 WBC 15.5 H (4.0-10.0) 10^3/ uL RBC 5.05 (4.1-5.3) 10^6/u L Hgb 14.3 (11.5-15.3) g/dL Hct 44.0 (37.0-47.0) % MCV 87.1 (81-99) fL MCH 28.3 (28.0-34.0) pg MCHC 32.5 (30.0-36.0) g/dL RDW 13.3 (12.1-15.1) % Plt Count 396 (130-400) 10^3/c mm MPV 9.2 (7.4-10.4) fL Neut % (Auto) 73.0 % Lymph % (Auto) 19.5 % Davis % (Auto) 4.2 % Eos % (Auto) 2.3 % Baso % (Auto) 0.6 % Neut # (Auto) 11.28 H (1.8-7.7) 10^3/u L Lymph # (Auto) 3.0 (0.8-4.8) 10^3/u L Davis # (Auto) 0.7 (0.2-0.9) 10^3/u L Eos # (Auto) 0.4 (0.0-0.8) 10^3/u L Baso # (Auto) 0.1 (0.0-0.1) 10^3/u L Nucleated RBC % (a uto) 0 % Nucleated RBCs # 0.0 /100WBC Sodium 140 (136-145) mmol/L Potassium 4.5 (3.5-5.1) mmol/L Chloride 101 (98-107) mmol/L Carbon Dioxide 28 (22-29) mmol/L Anion Gap 15.5 (5-19) BUN 14 (6-20) mg/dL Creatinine 0.4 L (0.5-0.9) mg/dL GFR Calculation 163.9 H (90-130) mL/min Glucose 211 H (65-115) mg/dL Calculated Osmolal ity 297 H (285-295) mOsm/k g Calcium 8.7 (8.5-10.5) mg/dL Total Bilirubin 0.6 (0.15-1.2) mg/dL AST 24 (0-32) U/L ALT 21 (0-33) U/L Alkaline Phosphata se 89 (35-105) IU/L Total Protein 7.0 (6.6-8.7) g/dL Albumin 3.7 (3.5-5.2) g/dL Globulin 3.3 (1.3-4.6) g/dL Lipase 26 (13-60) U/L Urine Color Yellow (Yellow) Urine Appearance Clear (CLEAR) Urine pH 5 (5-7) Ur Specific Gravit y 1.025 (1.005-1.030) Urine Protein Neg (Negative) Urine Glucose (UA) 1+ (Normal) Urine Ketones Negative (Negative) Urine Blood Neg (Negative) Urine Nitrate Negative (Negative) Urine Bilirubin Neg (Negative) Urine Urobilinogen Norm (Negative) mg/dL Ur Leukocyte Kriss ase Negative (Negative) Urine RBC 0-4 H (0-2) /hpf Urine WBC 0-4 H (0-5) /hpf Ur Squamous Epith Cells 0-4 H (0-5) /hpf Amorphous Sediment Not Reportable Urine Bacteria Trace (NONE) /hpf Urine Mucus Trace /hpf Imaging Data ^: CT Abd/Pel: Attestation: I personally reviewed and interpreted this imaging study as follows: Radiologist's impression: [facility] [address] [address] Scan Report Signed Patient: Jacque Levine Unit #: [id number] : 1960 Age/Sex: 60 / F ADM Date: 01/18/21 Loc: ER Room/Bed: Attending Dr: Ordering Provider/Ordering MD: Asaf Montenegro Date of Service: 01/18/21 Procedure(s): CT abdomen pelvis w con* [id number] Accession Number(s): [id number] Report Number: [id number] PROCEDURE INFORMATION: Exam: CT Abdomen And Pelvis With Contrast Exam date and time: 01/18/2021 6:22 PM Age: 60 years old Clinical indication: Abdominal pain; Right; Prior surgery; Surgery date: 6+ months; Surgery type: C-sect; Patient HX: C/O R flank pain now w llq pain; Additional info: Llq pain and right flank pain TECHNIQUE: Imaging protocol: Computed tomography of the abdomen and pelvis with contrast. Radiation optimization: All CT scans at this facility use at least one of these dose optimization techniques: automated exposure control; mA and/or kV adjustment per patient size (includes targeted exams where dose is matched to clinical indication); or iterative reconstruction. Contrast material: OMNI 300; Contrast volume: 95 ml; Contrast route: INTRAVENOUS (IV); COMPARISON: CT kidney stone [id number] 12/27/2020 3:45 AM RADIATION DOSE METRICS: Total DLP (mGy-cm): 1822.12 FINDINGS: Liver: Normal. No mass. Gallbladder and bile ducts: Normal. No calcified stones. No ductal dilation. Pancreas: Normal. No ductal dilation. Spleen: One or more stable accessory splenules. Adrenal glands: 4.3 cm stable right adrenal gland which previously exhibited gross fat on CT without contrast consistent with benign adrenal myelolipoma. No followup needed. Kidneys and ureters: Normal. No hydronephrosis. Stomach and bowel: Unremarkable. No obstruction. No mucosal thickening. Appendix: No evidence of appendicitis. Intraperitoneal space: Unremarkable. No free air. No significant fluid collection. Vasculature: Calcification of the abdominal aorta and/or iliac arteries consistent with atherosclerotic vessel disease. Lymph nodes: Unremarkable. No enlarged lymph nodes. Urinary bladder: Unremarkable as visualized. Reproductive: Unremarkable as visualized. Bones/joints: Mild to moderate multilevel spine degenerative changes including degenerative disc disease, spondylosis and facet degenerative changes. Soft tissues: Unremarkable. CT/CT abdomen pelvis w con* [id number] IMPRESSION: 1. 4.3 cm stable right adrenal gland which previously exhibited gross fat on CT without contrast consistent with benign adrenal myelolipoma. No followup needed. 2. No acute findings. Radiation Dose CTDIVOL = (mGy): DLP = 1822.12 (mGy-cm) Dictated By: Jeremiah Virgen MD Signed By: Jeremiah Virgen MD Signed Date/Time: 01/18/212046 DD/ 45 Discharge Plan Discharge Patient Disposition: Home Clinical Impression: Abdominal pain Qualifiers: Abdominal location: left lower quadrant Qualified Code(s): R10.32 - Left lower quadrant pain Low back pain Qualifiers: Chronicity: unspecified Back pain laterality: right Sciatica presence: without sciatica Qualified Code(s): M54.5 - Low back pain Condition: Stable Prescriptions: No Action albuterol sulfate 2.5 mg /3 mL (0.083 %) solution for nebulization 2.5 mg INHALATION Q4H PRN (Reason: shortness of breath or wheezing) Qty: 75 RF: 2 (DME) pen needle, diabetic 33 gauge x 5/32 needle See Rx Instructions .ROUTE .MEDSUPPLY Qty: 100 RF: 5 nitroglycerin [Nitrostat] 0.4 mg tablet, sublingual 0.4 mg SUBLINGUAL Q5M PRN (Reason: Chest Pain) RF: 0 travoprost 0.004 % drops ophthalmic (eye) .HC RF: 0 citalopram [Celexa] 40 mg tablet 40 mg PO DAILY Qty: 30 RF: 2 Hold Instructions: Patient No Longer Taking (DME) VixOne Nebulizer-Adult Mask Misc See Rx Instructions .ROUTE .MEDSUPPLY Qty: 1 RF: 0 albuterol sulfate [Ventolin HFA] 90 mcg/actuation HFA aerosol inhaler 2 puff INHALATION Q4H PRN (Reason: shortness of breath or wheezing) Qty: 18 RF: 2 cetirizine 10 mg tablet 10 mg PO DAILY Qty: 30 RF: 2 clopidogrel [Plavix] 75 mg tablet 75 mg PO DAILY Qty: 30 RF: 2 montelukast [Singulair] 10 mg tablet 10 mg PO DAILY Qty: 30 RF: 2 rosuvastatin [Crestor] 40 mg tablet 40 mg PO DAILY Qty: 30 RF: 2 Stiolto Respimat 2.5-2.5 mcg/actuation mist 2 puff inhalation Q24H Qty: 4 RF: 2 Ozempic 0.25 mg or 0.5 mg(2 mg/1.5 mL) pen injector 0.5 mg SUBCUT .weekly Qty: 1.5 RF: 1 Tresiba FlexTouch U-200 200 unit/mL (3 mL) insulin pen 140 unit SUBCUT DAILY Qty: 21 RF: 1 chlorthalidone 25 mg tablet 25 mg PO DAILY Qty: 30 RF: 2 lisinopril 40 mg tablet 40 mg PO .at supper Qty: 30 RF: 2 metoprolol succinate [Toprol XL] 50 mg tablet extended release 24 hr 50 mg PO .in AM Qty: 30 RF: 1 (DME) blood-glucose meter [YouMailTouch Ultra2 Meter] Kit See Rx Instructions .ROUTE .MEDSUPPLY Qty: 1 RF: 0 fluconazole [Diflucan] 150 mg tablet 150 mg PO DAILY Qty: 1 RF: 0 insulin aspart U-100 [Novolog Flexpen U-100 Insulin] 100 unit/mL (3 mL) insulin pen See Rx Instructions SUBCUT TID Qty: 30 RF: 1 (DME) OneTouch Ultra Blue Test Strip Strip See Rx Instructions .ROUTE .MEDSUPPLY Qty: 150 RF: 5 lancets [OneTouch UltraSoft Lancets] Misc See Rx Instructions .ROUTE .COMPLEX Qty: 100 RF: 5 hydrocodone-acetaminophen 5-325 mg tablet 1 tab PO Q8H PRN (Reason: pain) Qty: 7 RF: 0 Zofran 4 mg tablet 4 mg PO Q6H PRN (Reason: nausea and vomiting) Qty: 10 RF: 0 Discharge Orders: Discharge ED (Routine); Ordered 01/18/21 Ordered By: Asaf Montenegro Referrals: Brandi An, [facility] [Primary Care Provider] - Discharge Diet: Regular Discharge Activity: Increase activity as tolerated Patient Instructions: Abdominal Pain (ED) Activity Restrictions/Additional Instructions: Follow-up with medical provider as directed in 7 days for reevaluation. Continue taking all home medications as prescribed. Apply cold pack on sore area of abdomen and back to help with symptoms. Take Tylenol osti-hlo-qsqkbor for pain. Stretch lower back daily as well. Return to the ER or your medical provider if condition worsens. Please read and understand discharge instructions. Thank you for choosing [facility] for your healthcare needs today. Please realize this is an emergency room and that we are providing you with a medical screening exam and this may not be complete and all inclusive of all the testing and or work up that you may need to determine your ailment or severity of your illness. It is very important that you follow up as instructed or that you return to the Emergency Department should you have concerns or if your condition changes or worsens in any way. Coding Level of Care Code ED No Experience for Kim Simmons Exam Comprehensive
[2021-01-18 18:12] LABS: Alanine Aminotransferase 21 U/L (0-33); Albumin Level 3.7 g/dL (3.5-5.2); Alkaline Phosphatase 89 IU/L (35-105); Blood Urea Nitrogen 14 mg/dL (6-20); Calcium 8.7 mg/dL (8.5-10.5); Carbon Dioxide 28 mmol/L (22-29); Chloride 101 mmol/L (98-107); Globulin 3.3 g/dL (1.3-4.6); Glomerular Filtration Rate 163.9 mL/min (90-130); Glucose 211 mg/dL (65-115); Lipase 26 U/L (13-60); Osmolality Calculated 297 mOsm/kg (285-295); Sodium 140 mmol/L (136-145); Total Bilirubin 0.6 mg/dL (0.15-1.2)
[2021-01-18 18:16] LABS: Anion Gap 15.5 (5-19); Aspartate Amino Transferase 24 U/L (0-32); Potassium 4.5 mmol/L (3.5-5.1)
--- NOTE | 2021-01-18 18:22 | CTR_ITS ---
PROCEDURE INFORMATION: Exam: CT Abdomen And Pelvis With Contrast Exam date and time: 01/18/2021 6:22 PM Age: 60 years old Clinical indication: Abdominal pain; Right; Prior surgery; Surgery date: 6+ months; Surgery type: C-sect; Patient HX: C/O R flank pain now w llq pain; Additional info: Llq pain and right flank pain TECHNIQUE: Imaging protocol: Computed tomography of the abdomen and pelvis with contrast. Radiation optimization: All CT scans at this facility use at least one of these dose optimization techniques: automated exposure control; mA and/or kV adjustment per patient size (includes targeted exams where dose is matched to clinical indication); or iterative reconstruction. Contrast material: OMNI 300; Contrast volume: 95 ml; Contrast route: INTRAVENOUS (IV); COMPARISON: CT kidney stone [id number] 12/27/2020 3:45 AM RADIATION DOSE METRICS: Total DLP (mGy-cm): 1822.12 FINDINGS: Liver: Normal. No mass. Gallbladder and bile ducts: Normal. No calcified stones. No ductal dilation. Pancreas: Normal. No ductal dilation. Spleen: One or more stable accessory splenules. Adrenal glands: 4.3 cm stable right adrenal gland which previously exhibited gross fat on CT without contrast consistent with benign adrenal myelolipoma. No followup needed. Kidneys and ureters: Normal. No hydronephrosis. Stomach and bowel: Unremarkable. No obstruction. No mucosal thickening. Appendix: No evidence of appendicitis. Intraperitoneal space: Unremarkable. No free air. No significant fluid collection. Vasculature: Calcification of the abdominal aorta and/or iliac arteries consistent with atherosclerotic vessel disease. Lymph nodes: Unremarkable. No enlarged lymph nodes. Urinary bladder: Unremarkable as visualized. Reproductive: Unremarkable as visualized. Bones/joints: Mild to moderate multilevel spine degenerative changes including degenerative disc disease, spondylosis and facet degenerative changes. Soft tissues: Unremarkable. CT/CT abdomen pelvis w con* [id number] IMPRESSION: 1. 4.3 cm stable right adrenal gland which previously exhibited gross fat on CT without contrast consistent with benign adrenal myelolipoma. No followup needed. 2. No acute findings. Radiation Dose CTDIVOL = (mGy): DLP = 1822.12 (mGy-cm)
[2021-01-18 18:51] LABS: Add Urine Culture? No; Bacteria Urine TRACE /hpf; Bilirubin Urine Neg (Negative); Blood Urine Neg (Negative); Glucose Urine UA 1+ (Normal); Ketones Urine Negative (Negative); Leukocyte Esterase Urine Negative (Negative); Mucus Urine TRACE /hpf; Nitrate Urine Negative (Negative); Protein Urine Neg (Negative); RBC Urine 0-4 /hpf (0-2); Specific Gravity, Urine 1.025 (1.005-1.030); Squamous Epithelial Cell Urine 0-4 /hpf (0-5); Urine Appearance Clear (CLEAR); Urine Color Yellow (Yellow); Urobilinogen Urine Norm (Negative); WBC Urine 0-4 /hpf (0-5); pH Urine 5 (5-7)
[2021-01-18] MEDS: iohexol 300 mg/mL 100 mL Btl IV (19:26)
[2021-01-18] MEDS: ondansetron 2 mg/ML SDV 2 mL 4 MG IVP (19:40)
[2021-01-18 19:41] VITALS: RESP 16
[2021-01-18] MEDS: morphine 4 mg/mL SDV 1 mL IVP (19:41)
[2021-01-18 19:45] VITALS: BP 188/113; PULSE 83; RESP 16; O2SAT 95
[2021-01-18 21:37] VITALS: BP 163/90; PULSE 86; RESP 18; O2SAT 94
== END 2021-01-18 21:39 | disposition home or self-care (01) ==
PROVIDERS: Emergency Provider Physician Assistant; PCP Nurse Practitioner
DX: R10.32 Left lower quadrant pain (principal); M54.5 Low back pain; Z79.02 Long term (current) use of antithrombotics/antiplatelets; Z79.4 Long term (current) use of insulin
CPT/HCPCS: 74177; 80053; 81001; 83690; 85025; 96374; 96375; 99284; J2270; J2405; Q9967

== ENCOUNTER → 2021-01-26 17:18 | Outpatient (BNVA) | payer MEDICAID, SELFPAY | PROVIDERS: PCP Nurse Practitioner; Visit Provider Nurse Practitioner | DX: L98.9 Disorder of the skin and subcutaneous tissue, unspecified (principal) | CPT/HCPCS: 88304; 88305 ==

== ENCOUNTER → 2021-02-12 10:02 | Outpatient (BNVA) | payer MEDICAID, SELFPAY | PROVIDERS: PCP Nurse Practitioner; Visit Provider Nurse Practitioner | DX: E11.69 Type 2 diabetes mellitus with other specified complication (principal); Z79.4 Long term (current) use of insulin; J45.909 Unspecified asthma, uncomplicated; I10 Essential (primary) hypertension; Z86.73 Personal history of transient ischemic attack (TIA), and cerebral infarction without residual deficits; E78.00 Pure hypercholesterolemia, unspecified | CPT/HCPCS: 80053; 83036; 85651 ==

== ENCOUNTER → 2021-05-26 13:30 | Outpatient (BNVA) | payer MEDICAID, SELFPAY | PROVIDERS: PCP Nurse Practitioner; Visit Provider Nurse Practitioner | DX: E11.69 Type 2 diabetes mellitus with other specified complication (principal); Z79.4 Long term (current) use of insulin | CPT/HCPCS: 80053; 80061; 83036; 84443 ==

== ENCOUNTER 2021-09-07 11:32 | Outpatient (CLI) | payer MEDICAID, SELFPAY ==
--- NOTE | 2021-09-07 11:45 | US_ITS ---
WS: [id number] INDICATION: LEFT hip pain TECHNIQUE: Ultrasound LEFT hip FINDINGS: Ultrasound LEFT hip in the area of patient direction. Prior removal of lipoma in this area. Normal-appearing subcutaneous soft tissue. No cystic or solid lesions. No drainable fluid collection s. US/US soft tissue/extremity [id number] IMPRESSION: Normal soft tissue ultrasound in the area of LEFT hip.
== END 2021-09-07 11:33 | disposition home or self-care (01) ==
LOC: RAD 11:37
PROVIDERS: PCP Nurse Practitioner; Visit Provider Nurse Practitioner
DX: M25.552 Pain in left hip (principal)
CPT/HCPCS: 76882

== ENCOUNTER → 2021-10-13 10:01 | Outpatient (BNVA) | payer MEDICAID, SELFPAY | PROVIDERS: PCP Nurse Practitioner; Visit Provider Nurse Practitioner | DX: E55.9 Vitamin D deficiency, unspecified (principal); E11.69 Type 2 diabetes mellitus with other specified complication; Z79.4 Long term (current) use of insulin | CPT/HCPCS: 80053; 80061; 82306; 82607; 83036; 84443 ==

== ENCOUNTER → 2022-01-19 13:50 | Outpatient (BNVA) | payer MEDICAID, SELFPAY | PROVIDERS: PCP Nurse Practitioner; Visit Provider Nurse Practitioner | DX: E11.69 Type 2 diabetes mellitus with other specified complication (principal); Z79.4 Long term (current) use of insulin; E55.9 Vitamin D deficiency, unspecified; J45.909 Unspecified asthma, uncomplicated; J30.1 Allergic rhinitis due to pollen; I10 Essential (primary) hypertension; Z86.73 Personal history of transient ischemic attack (TIA), and cerebral infarction without residual deficits; M51.36 Other intervertebral disc degeneration, lumbar region; E78.00 Pure hypercholesterolemia, unspecified; E11.9 Type 2 diabetes mellitus without complications; G43.909 Migraine, unspecified, not intractable, without status migrainosus; L03.90 Cellulitis, unspecified | CPT/HCPCS: 80053; 81000; 83036 ==

== ENCOUNTER 2022-02-12 08:43 | Outpatient (CLI) | payer MEDICAID, SELFPAY ==
--- NOTE | 2022-02-12 08:48 | MM_ITS ---
WS: [id number] DIAGNOSTIC BILATERAL DIGITAL BREAST TOMOSYNTHESIS MAMMOGRAPHY WITH CAD RIGHT breast ultrasound, limited HISTORY: RT BREAST LESION COMPARISON: 12/01/2010 TECHNIQUE: Bilateral craniocaudad, mediolateral oblique, and mediolateral views are submitted with to mosynthesis and SM. Spot compression RIGHT CC and MLO. Computer aided detection utilized. Breast composition: There are scattered areas of fibroglandular density. Triangular marker is placed along the 2:00 axis of the RIGHT breast. This is near the palpable superficial skin lesion. My mammog tomas no abnormality is identified. There is no skin thickening and no mass or tethering. Benign calc ifications in each breast. RIGHT breast ultrasound, limited. There is very minimal superficial soft tissue thickening measuring 2.3 x 1.5 cm and a depth of 0.3 cm . This corresponds to the resolving soft tissue complex collection which may have been an abscess. No significant increased vascularity. MM/[place] [id number] IMPRESSION: BI-RADS: 2-Benign FOLLOW UP: 1 Year Follow-up No breast abnormality. There is a subcutaneous soft tissue area of thickening w hich corresponds to the resolving superficial abscess. This is very nonspecific and benign in appearance by ultrasound. No additional imaging necessary unless this area becomes larger or more aggressive in appearance.
--- NOTE | 2022-02-12 09:11 | US_ITS ---
WS: [id number] DIAGNOSTIC BILATERAL DIGITAL BREAST TOMOSYNTHESIS MAMMOGRAPHY WITH CAD RIGHT breast ultrasound, limited HISTORY: RT BREAST LESION COMPARISON: 12/01/2010 TECHNIQUE: Bilateral craniocaudad, mediolateral oblique, and mediolateral views are submitted with to mosynthesis and SM. Spot compression RIGHT CC and MLO. Computer aided detection utilized. Breast composition: There are scattered areas of fibroglandular density. Triangular marker is placed along the 2:00 axis of the RIGHT breast. This is near the palpable superficial skin lesion. My mammog tomas no abnormality is identified. There is no skin thickening and no mass or tethering. Benign calc ifications in each breast. RIGHT breast ultrasound, limited. There is very minimal superficial soft tissue thickening measuring 2.3 x 1.5 cm and a depth of 0.3 cm . This corresponds to the resolving soft tissue complex collection which may have been an abscess. No significant increased vascularity. US/US breast RT limited* [id number] IMPRESSION: BI-RADS: 2-Benign FOLLOW UP: 1 Year Follow-up No breast abnormality. There is a subcutaneous soft tissue area of thickening w hich corresponds to the resolving superficial abscess. This is very nonspecific and benign in appearance by ultrasound. No additional imaging necessary unless this area becomes larger or more aggressive in appearance.
== END 2022-02-12 08:44 | disposition home or self-care (01) ==
LOC: RAD 08:44
PROVIDERS: PCP Nurse Practitioner; Visit Provider Nurse Practitioner
DX: N63.10 Unspecified lump in the right breast, unspecified quadrant (principal)
CPT/HCPCS: 76642; 77062

== ENCOUNTER → 2022-05-04 09:16 | Outpatient (BNVA) | payer MEDICAID, SELFPAY | PROVIDERS: PCP Nurse Practitioner; Visit Provider Nurse Practitioner | DX: E11.69 Type 2 diabetes mellitus with other specified complication (principal); Z79.4 Long term (current) use of insulin; E55.9 Vitamin D deficiency, unspecified | CPT/HCPCS: 80053; 80061; 81000; 82306; 83036 ==

== ENCOUNTER 2022-05-17 05:04 | Emergency (ER) | payer MEDICAID, SELFPAY ==
[2022-05-17 05:06] VITALS: BP 143/85; PULSE 105; RESP 19; TEMP 37; O2SAT 96; BMI 60.3
--- NOTE | 2022-05-17 05:36 | XRR_ITS ---
PROCEDURE INFORMATION: Exam: XR Chest Exam date and time: 05/17/2022 5:59 AM Age: 62 years old Clinical indication: Cough and shortness of breath; Additional info: Cough SOB TECHNIQUE: Imaging protocol: Radiologic exam of the chest. Views: 1 view. COMPARISON: CR XR chest 1V portable [id number] 12/20/2019 3:26 AM FINDINGS: Tubes, catheters and devices: Prior surgical fixation of the caudal aspect of the cervical spine. Lungs: Lungs are well aerated without a focal area of consolidation. Pleural spaces: Unremarkable. No pleural effusion. No pneumothorax. Heart/Mediastinum: Unremarkable. No cardiomegaly. Bones/joints: Unremarkable. XR/XR chest 1V portable [id number] IMPRESSION: Lungs are well aerated without a focal area of consolidation.
--- NOTE | 2022-05-17 05:54 | ED_ITS ---
Documented by User: Edwin Patel DO 05/17/22 21:03 HPI - General Adult General: Chief complaint: General Medical Stated complaint: sore throat, cough x 1.5 wks Time Seen by Provider: 05/17/22 05:10 Source: patient History of Present Illness: 62-year-old female presents emergency room with cough and sore throat for the last week and a half. She Has experienced some shortness of breath as well. She denies significant fever. She has had some sputum production. No vomiting or diarrhea. Was initially seen by Dr. Patel. Dr. Patel did discharge the patient adjustments made to the discharge instructions see note below Onset (ago): day(s) Severity: moderate Quality: other Pain Consistency: other Associated symptoms: Reports chest pain (with cough), cough, dyspnea and headache(s) (with cough); Deny fevers/chills, syncope, vomiting or weakness Review of Systems Const: Reports: chills and body aches; Denies: fever(s) ENMT: Reports: throat pain and odynophagia; Denies: swelling of lips/tongue Card: Reports: chest pain (with cough); Denies: syncope Resp: Reports: dyspnea GI: Denies: vomiting Musc: Denies: neck pain Neuro: Reports: headache(s) (with cough) PFSH ED PFSH: Medical History Allergic rhinitis due to pollen Anxiety Asthma due to seasonal allergies BMI 60.0-69.9, adult Degenerative disc disease, lumbar Diabetes Essential (primary) hypertension History of CVA (cerebrovascular accident) Hypercholesterolemia Migraine Neck pain with history of cervical spinal surgery Obesity Osteoarthritis thoracic spine Personal history of transient ischemic attack (TIA), and cerebral infarction without residual deficits PVC (premature ventricular contraction) Surgical History H/O neck surgery C -spine with plate 2000 History of section 4 times History of endarterectomy Right History of endometrial ablation History of knee surgery Left History of tonsillectomy Family History Mother Diabetes Heart disease Hypertension Father Diabetes Heart disease Hypertension Cancer Unknown type Sister Diabetes Heart disease Hypertension Brother Diabetes Heart disease Hypertension Family/Other Stroke Social History Smoking and tobacco status: former smoker Second hand smoke exposure: No Smoking risk assessment/counseling performed?: No Alcohol intake: never Desire information about alcohol rehabilitation?: No Counseling given: No Desire information about substance/drug rehabilitation?: No Counseling given: No Caregiver/support person: No Lives independently: Yes Household members: spouse Housing: Apartment Marital status: Unknown Current occupational status: unemployed History of recent travel: No Current gender identity: Female Physical Exam Const: GENERAL APPEARANCE: cooperative and ill appearing (mildly); not comfortable and not Edematous NUTRITIONAL APPEARANCE: obese HENMT: COMMON NORMALS: normocephalic, atraumatic and Normal external nose present HEAD & SCALP: normocephalic and atraumatic FACE & SINUS: normal facial exam and face symmetric NOSE: Normal external nose present Eye: COMMON NORMALS: Equal, round and reactive pupils present and EOMs intact bilaterally PUPIL: Yes Equal, round and reactive pupils present Neck/C-Spine: GENERAL: Yes trachea midline and No anterior neck swelling Chest: CHEST: Yes Symmetrical chest wall rise and Yes tenderness Resp: COMMON NORMALS: clear to auscultation bilaterally EFFORT & INS PECTION: Yes tachypneic AUSCULTATION: clear to auscultation bilaterally and diminished lung sounds Cardio: COMMON NORMALS: regular rate and regular rhythm RATE: regular rate RHYTHM: regular rhythm GI: COMMON NORMALS: Normal to inspection, nondistended, normoactive bowel sounds present and Soft to palpation PALPATION: Yes Soft to palpation Extremity: COMMON NORMALS: no pedal edema Neuro: TAMERA COMA SCALE: document GCS findings Tamera coma scale eye opening: Spontaneous Brewster coma scale verbal response: Orientated Tamera coma scale motor response: Obey commands Brewster coma scale total score: 15 Psych: COMMON NORMALS: mental status grossly normal and speech normal SPEECH: Yes normal speech Course Vital Signs: Vital signs: Vital Signs Temperature 98.6 F 05/17/22 05:06 Pulse Rate 95 05/17/22 06:43 Respiratory Rate 18 05/17/22 06:39 Blood Pressure 143/85 05/17/22 07:26 Pulse Oximetry 91 05/17/22 07:26 Oxygen Delivery Me thod 05/17/22 07:26 [facility] - General Adult Medical Decision Making Chest X-ray is clear. Swabs for influenza and COVID-19 are negative. Her saturations are normal. she's slightly tachypneic. She?ll be discharged with antibiotics. She'll be given a dose of dexamethasone here. She has warned that steroids will make her blood sugar rays transiently. She will use her albuterol scheduled for the next 48 hours. She is to return if worsening. Dr. Patel had left her shift prior to leaving he had arranged for this patient's discharge. After he had left the patient informed staff that she was allergic to doxycycline as well which is what he had prescribed her. This will be changed to Levaquin 750 daily for 1 week. Lab Data Radiology Impressions Chest X-Ray 05/17/22 05:36 IMPRESSION: Lungs are well aerated without a focal area of consolidation. Laboratory Results Influenza Type A Ag negative (Negative) 05/17/22 05:40 Influenza Type B Ag negative (Negative) 05/17/22 05:40 SARS-CoV-2 Ag (Rapid) negative (Negative) 05/17/22 05:40 Discharge Plan Discharge Patient Disposition: Home Clinical Impression: Acute bronchitis Condition: Stable Prescriptions: New dexamethasone 6 mg tablet 6 mg PO DAILY Qty: 5 0RF benzonatate 200 mg capsule 200 mg PO TID PRN (Reason: cough) Qty: 20 0RF levofloxacin 750 mg tablet 750 mg PO DAILY 7 Days Qty: 7 0RF No Action albuterol sulfate 2.5 mg /3 mL (0.083 %) solution for nebulization 2.5 mg INHALATION Q4H PRN (Reason: shortness of breath or wheezing) Qty: 75 2RF travoprost 0.004 % drops ophthalmic (eye) .HC (DME) VixOne Nebulizer-Adult Mask Misc See Rx Instructions .ROUTE .MEDSUPPLY Qty: 1 0RF Rx Instructions: daily lidocaine 5 % adhesive patch,medicated 1 patch topical DAILY Qty: 30 2RF Rx Instructions: leave on most painful area for up to 12 hrs (DME) OneTouch Ultra Blue Test Strip Strip See Rx Instructions .ROUTE .MEDSUPPLY Qty: 150 5RF Rx Instructions: 5 times day lancets [OneTouch UltraSoft Lancets] Misc See Rx Instructions .ROUTE .COMPLEX Qty: 100 5RF Dose Instruction: test blood sugar three times daily as directed. Rx Instructions: test blood sugar three times daily as directed. (DME) pen needle, diabetic 33 gauge x 5/32 needle See Rx Instructions .ROUTE .MEDSUPPLY Qty: 100 5RF Rx Instructions: 4 times day albuterol sulfate [Ventolin HFA] 90 mcg/actuation HFA aerosol inhaler 2 puff INHALATION Q4H PRN (Reason: shortness of breath or wheezing) Qty: 18 2RF cetirizine 10 mg tablet 10 mg PO DAILY Qty: 30 2RF chlorthalidone 50 mg tablet 50 mg PO DAILY Qty: 30 2RF clopidogrel [Plavix] 75 mg tablet 75 mg PO DAILY Qty: 30 2RF Farxiga 5 mg tablet 5 mg PO QAM Qty: 30 2RF duloxetine [Cymbalta] 20 mg capsule,delayed release(DR/EC) 20 mg PO BID Qty: 60 2RF ergocalciferol (vitamin D2) 1,250 mcg (50,000 unit) capsule 1,250 mcg PO .weekly Qty: 4 2RF metoprolol succinate [Toprol XL] 25 mg tablet extended release 24 hr 25 mg PO DAILY Qty: 30 2RF rosuvastatin [Crestor] 40 mg tablet 40 mg PO DAILY Qty: 30 2RF Ozempic 0.25 mg or 0.5 mg(2 mg/1.5 mL) pen injector 0.5 mg SUBCUT .weekly Qty: 1.5 2RF Rx Instructions: Not tolerating Turlicity, Byetta or Bydureon Stiolto Respimat 2.5-2.5 mcg/actuation mist 2 puff inhalation Q24H Qty: 4 2RF insulin aspart U-100 [Novolog Flexpen U-100 Insulin] 100 unit/mL (3 mL) insulin pen See Rx Instructions SUBCUT TID Qty: 45 2RF Rx Instructions: 10-50 units with meals SUBCUT three times daily; trazodone 50 mg tablet 50 mg PO .at bedtime Qty: 30 2RF (DME) cane Device See Rx Instructions .Route Qty: 1 0RF Rx Instructions: As directed ([facility] [place]) blood-glucose meter [OneTouch Ultra2 Meter] Kit See Rx Instructions .ROUTE .MEDSUPPLY Qty: 1 0RF Rx Instructions: daily Tresiba FlexTouch U-200 200 unit/mL (3 mL) insulin pen 140 unit SUBCUT DAILY Qty: 21 0RF Rx Instructions: Does not tolerate Levemir or Lantus Discharge Orders: Discharge ED (Routine); Ordered 05/17/22 Ordered By: Edwin Patel Referrals: Brandi An, SYLVIAC [Primary Care Provider] - 1-3 days Patient Instructions: Acute Bronchitis (ED) Activity Restrictions/Additional Instructions: Medication as directed. Use your nebulizer every 4 hours while awake for the next 48 hours scheduled whether you need it or not, then as needed. Return for fever greater than 100 despite 2-3 doses of antibiotics, worsening shortness of breath despite treatment, chest discomfort, mental status changes, other concerning symptoms. Call back later today for the results of your swabs, although with the duration of your symptoms, it would not change your management. Coding Level of Care Code ED Cushion Installer for Chg Fwd Documented by User: Liam Rocha DO 05/17/22 08:33 HPI - General Adult General: Chief complaint: General Medical Stated complaint: sore throat, cough x 1.5 wks Time Seen by Provider: 05/17/22 05:10 History of Present Illness: 62-year-old female presents emergency room with cough and sore throat for the last week and a half. Was initially seen by Dr. Patel. Dr. Patel did discharge the patient adjustments made to the discharge instructions see note below PFSH ED PFSH: Medical History Allergic rhinitis due to pollen Anxiety Asthma due to seasonal allergies BMI 60.0-69.9, adult Degenerative disc disease, lumbar Diabetes Essential (primary) hypertension History of CVA (cerebrovascular accident) Hypercholesterolemia Migraine Neck pain with history of cervical spinal surgery Obesity Osteoarthritis thoracic spine Personal history of transient ischemic attack (TIA), and cerebral infarction without residual deficits PVC (premature ventricular contraction) Surgical History H/O neck surgery C -spine with plate 2001 History of section 4 times History of endarterectomy Right History of endometrial ablation History of knee surgery Left History of tonsillectomy Family History Mother Diabetes Heart disease Hypertension Father Diabetes Heart disease Hypertension Cancer Unknown type Sister Diabetes Heart disease Hypertension Brother Diabetes Heart disease Hypertension Family/Other Stroke Social History Smoking and tobacco status: former smoker Second hand smoke exposure: No Smoking risk assessment/counseling performed?: No Alcohol intake: never Desire information about alcohol rehabilitation?: No Counseling given: No Desire information about substance/drug rehabilitation?: No Counseling given: No Caregiver/support person: No Lives independently: Yes Household members: spouse Housing: Apartment Marital status: Unknown Current occupational status: unemployed History of recent travel: No Current gender identity: Female Course Vital Signs: Vital signs: Vital Signs Temperature 98.6 F 05/17/22 05:06 Pulse Rate 95 05/17/22 06:43 Respiratory Rate 18 05/17/22 06:39 Blood Pressure 143/85 05/17/22 07:26 Pulse Oximetry 91 05/17/22 07:26 Oxygen Delivery Me thod 05/17/22 07:26 MDM - General Adult Medical Decision Making Dr. Patel had left her shift prior to leaving he had arranged for this patient's discharge. After he had left the patient informed staff that she was allergic to doxycycline as well which is what he had prescribed her. This will be changed to Levaquin 750 daily for 1 week. Lab Data Radiology Impressions Chest X-Ray 05/17/22 05:36 IMPRESSION: Lungs are well aerated without a focal area of consolidation. Laboratory Results Influenza Type A Ag negative (Negative) 05/17/22 05:40 Influenza Type B Ag negative (Negative) 05/17/22 05:40 SARS-CoV-2 Ag (Rapid) negative (Negative) 05/17/22 05:40 Discharge Plan Discharge Patient Disposition: Home Clinical Impression: Acute bronchitis Condition: Stable Prescriptions: New dexamethasone 6 mg tablet 6 mg PO DAILY Qty: 5 0RF benzonatate 200 mg capsule 200 mg PO TID PRN (Reason: cough) Qty: 20 0RF levofloxacin 750 mg tablet 750 mg PO DAILY 7 Days Qty: 7 0RF No Action albuterol sulfate 2.5 mg /3 mL (0.083 %) solution for nebulization 2.5 mg INHALATION Q4H PRN (Reason: shortness of breath or wheezing) Qty: 75 2RF travoprost 0.004 % drops ophthalmic (eye) .HC (DME) VixOne Nebulizer-Adult Mask Misc See Rx Instructions .ROUTE .MEDSUPPLY Qty: 1 0RF Rx Instructions: daily lidocaine 5 % adhesive patch,medicated 1 patch topical DAILY Qty: 30 2RF Rx Instructions: leave on most painful area for up to 12 hrs (DME) OneTouch Ultra Blue Test Strip Strip See Rx Instructions .ROUTE .MEDSUPPLY Qty: 150 5RF Rx Instructions: 5 times day lancets [OneTouch UltraSoft Lancets] Misc See Rx Instructions .ROUTE .COMPLEX Qty: 100 5RF Dose Instruction: test blood sugar three times daily as directed. Rx Instructions: test blood sugar three times daily as directed. (DME) pen needle, diabetic 33 gauge x 5/32 needle See Rx Instructions .ROUTE .MEDSUPPLY Qty: 100 5RF Rx Instructions: 4 times day albuterol sulfate [Ventolin HFA] 90 mcg/actuation HFA aerosol inhaler 2 puff INHALATION Q4H PRN (Reason: shortness of breath or wheezing) Qty: 18 2RF cetirizine 10 mg tablet 10 mg PO DAILY Qty: 30 2RF chlorthalidone 50 mg tablet 50 mg PO DAILY Qty: 30 2RF clopidogrel [Plavix] 75 mg tablet 75 mg PO DAILY Qty: 30 2RF Farxiga 5 mg tablet 5 mg PO QAM Qty: 30 2RF duloxetine [Cymbalta] 20 mg capsule,delayed release(DR/EC) 20 mg PO BID Qty: 60 2RF ergocalciferol (vitamin D2) 1,250 mcg (50,000 unit) capsule 1,250 mcg PO .weekly Qty: 4 2RF metoprolol succinate [Toprol XL] 25 mg tablet extended release 24 hr 25 mg PO DAILY Qty: 30 2RF rosuvastatin [Crestor] 40 mg tablet 40 mg PO DAILY Qty: 30 2RF Ozempic 0.25 mg or 0.5 mg(2 mg/1.5 mL) pen injector 0.5 mg SUBCUT .weekly Qty: 1.5 2RF Rx Instructions: Not tolerating Turlicity, Byetta or Bydureon Stiolto Respimat 2.5-2.5 mcg/actuation mist 2 puff inhalation Q24H Qty: 4 2RF insulin aspart U-100 [Novolog Flexpen U-100 Insulin] 100 unit/mL (3 mL) insulin pen See Rx Instructions SUBCUT TID Qty: 45 2RF Rx Instructions: 10-50 units with meals SUBCUT three times daily; trazodone 50 mg tablet 50 mg PO .at bedtime Qty: 30 2RF (DME) cane Device See Rx Instructions .Route Qty: 1 0RF Rx Instructions: As directed (DME) blood-glucose meter [[employer]Touch Ultra2 Meter] Kit See Rx Instructions .ROUTE .MEDSUPPLY Qty: 1 0RF Rx Instructions: daily Tresiba FlexTouch U-200 200 unit/mL (3 mL) insulin pen 140 unit SUBCUT DAILY Qty: 21 0RF Rx Instructions: Does not tolerate Levemir or Lantus Discharge Orders: Discharge ED (Routine); Ordered 05/17/22 Ordered By: Edwin Patel Referrals: Brandi An, [facility] REPRES[facility] [Primary Care Provider] - 1-3 days Patient Instructions: Acute Bronchitis (ED) Activity Restrictions/Additional Instructions: Medication as directed. Use your nebulizer every 4 hours while awake for the next 48 hours scheduled whether you need it or not, then as needed. Return for fever greater than 100 despite 2-3 doses of antibiotics, worsening shortness of breath despite treatment, chest discomfort, mental status changes, other concerning symptoms. Call back later today for the results of your swabs, although with the duration of your symptoms, it would not change your management. Coding Level of Care Code ED Cushion Installer for Kim Simmons
[2022-05-17 06:38] LABS: Influenza A by IFA negative (Negative); Influenza B by IFA negative (Negative); SARS Covid-2 Antigen negative (Negative)
[2022-05-17 06:39] VITALS: PULSE 96; RESP 18; O2SAT 92
[2022-05-17] MEDS: ipratropium-albuterol 3 mL Neb INHALATION (06:40)
[2022-05-17 06:43] VITALS: PULSE 95
[2022-05-17] MEDS: dexamethasone 4 mg Tablet 6 MG PO (07:17)
[2022-05-17 07:26] VITALS: BP 143/85; O2SAT 91
[2022-05-17] MEDS: levoFLOXacin 750 mg Tablet PO (07:54)
== END 2022-05-17 09:54 | disposition home or self-care (01) ==
PROVIDERS: Emergency Medicine; Emergency Provider Family Medicine; PCP Nurse Practitioner
DX: J20.9 Acute bronchitis, unspecified (principal); Z87.891 Personal history of nicotine dependence
CPT/HCPCS: 71045; 87426; 87804; 94640; 99284; J8540

== ENCOUNTER → 2022-07-29 09:57 | Outpatient (BNVA) | payer MEDICAID, SELFPAY | PROVIDERS: PCP Nurse Practitioner; Visit Provider Nurse Practitioner | DX: E11.9 Type 2 diabetes mellitus without complications (principal); E11.69 Type 2 diabetes mellitus with other specified complication; Z79.4 Long term (current) use of insulin | CPT/HCPCS: 80053; 80061; 83036; 84443 ==

== ENCOUNTER → 2022-11-04 08:39 | Outpatient (BNVA) | payer MEDICAID, SELFPAY | PROVIDERS: PCP Nurse Practitioner; Visit Provider Nurse Practitioner | DX: E55.9 Vitamin D deficiency, unspecified (principal); I10 Essential (primary) hypertension; E11.9 Type 2 diabetes mellitus without complications | CPT/HCPCS: 80053; 81000; 82043; 82306; 83036 ==

== ENCOUNTER → 2023-03-03 08:00 | Outpatient (BNVA) | payer MEDICAID, SELFPAY | PROVIDERS: PCP Nurse Practitioner; Visit Provider Nurse Practitioner | DX: E55.9 Vitamin D deficiency, unspecified (principal); I10 Essential (primary) hypertension | CPT/HCPCS: 80053; 81000; 82306; 83036; 85025 ==

== ENCOUNTER 2023-03-17 14:02 | Outpatient (CLI) | payer MEDICAID, SELFPAY ==
--- NOTE | 2023-03-17 14:08 | XR_ITS ---
WS: [id number] Cervical spine, 4 views, 03/17/2023 Clinical Data: M54.2 - Cervicalgia Comparison: Cervical spine, 09/19/2019 Findings: The anterior cervical disc fusion at C5-C7 with disc material at C5-C6 and C6-C7 remains th e same. There is no prevertebral soft tissue swelling. There is a spur of the anterior inferior aspec t of C4. Impression: Stable anterior cervical disc fusion C5-C7.
--- NOTE | 2023-03-17 14:08 | XR_ITS ---
WS: [id number] Lumbar spine, 3 views, 03/17/2023 Clinical Data: M54.2 - Cervicalgia Comparison: Lumbar spine, 05/19/2014. Findings: No compression fractures or subluxation is seen. No disc space narrowing is seen. The transverse proc esses and SI joints are normal. There are small osteophytes of all the lumbar vertebral bodies. The abdominal aorta shows calcificati on but no aneurysm. Impression: Osteoarthritis of the upper lumbar vertebral bodies.
--- NOTE | 2023-03-17 14:08 | XR_ITS ---
WS: [id number] Left knee, 3 views, 03/17/2023 Clinical Data: M79.605 - Pain in left leg Comparison: AP knees, 12/09/2015, left knee, 06/08/2012. Findings: No fractures or dislocations are seen. There is medial joint compartment narrowing with spurring of t he medial and lateral femoral condyles and the medial tibial plateau.. The patella is intact. The sof t tissues are unremarkable. Impression: Mild osteoarthritis of the left knee with spurring and medial joint compartment narrowing. Kellgren-Andres Classification: grade 1 (doubtful): doubtful joint space narrowing and possible ost eophytic lipping
--- NOTE | 2023-03-17 14:08 | XR_ITS ---
WS: [email or web address] Thoracic spine, 3 views, 03/17/2023 Clinical Data: M54.2 - Cervicalgia Comparison: None. Findings: No compression fractures are seen. The disc heights are normal. There is anterior osteophyte formation of the mid thoracic vertebral bodies to T12. The paravertebral regions are normal. The anterior cervical disc fusion C5-C7 is visible. Impression: Extensive osteoarthritis of the mid and lower thoracic vertebral bodies.
--- NOTE | 2023-03-17 14:08 | XR_ITS ---
WS: [email or web address] Left hip, AP and frog-leg views Clinical Data: M79.605 - Pain in left leg Comparison: AP pelvis, 03/19/2016. Findings: No fractures or dislocations are seen. The left hip shows no erosion, sclerosis, narrowing, cyst form ation or fragmentation of the left femoral head. There is a small acetabular lip.. The soft tissues a re not remarkable. The adjacent pelvis is normal. Vascular calcification is seen. Impression: Minimal osteoarthritis of the left hip. Tonnis classification: grade 1: sclerosis of femoral head and acetabulum or slight joint space narrow ing or slight lipping at joint margins
--- NOTE | 2023-03-17 14:10 | MM_ITS ---
WS: [email or web address] Bilateral screening 3D tomosynthesis digital mammogram, 03/17/2023 Clinical Data: SCREENING Comparison: 02/12/2022, 12/01/2010, 02/04/2010, 08/30/2008. Findings: The breast parenchymal pattern shows fibroglandular tissue. No spiculated masses or clustered calcifi cations are seen. There are no secondary signs of carcinoma. Impression: 1. Negative bilateral mammogram unchanged. 2. Recommend annual screening mammograms. MM/[place] [id number] BIRADS: 1-Negative FOLLOW UP: 1 Year Follow-up The CAD piece work checker was used.
== END 2023-03-17 14:03 | disposition home or self-care (01) ==
LOC: RAD 14:04
PROVIDERS: PCP Nurse Practitioner; Visit Provider Nurse Practitioner
DX: M16.12 Unilateral primary osteoarthritis, left hip (principal); M17.12 Unilateral primary osteoarthritis, left knee; M47.896 Other spondylosis, lumbar region; M47.894 Other spondylosis, thoracic region; M79.605 Pain in left leg; M54.2 Cervicalgia; M54.9 Dorsalgia, unspecified; Z12.31 Encounter for screening mammogram for malignant neoplasm of breast; E66.9 Obesity, unspecified; Z98.1 Arthrodesis status; Z68.44 Body mass index [BMI] 60.0-69.9, adult
CPT/HCPCS: 72040; 72072; 72100; 73502; 73562; 77063; 77067; 99204

== ENCOUNTER 2023-04-12 15:51 | Outpatient (CLI) | payer MEDICAID, SELFPAY ==
--- NOTE | 2023-04-12 15:55 | XR_ITS ---
WS: [email or web address] EXAMINATION: XR chest 2V* [id number] REASON FOR EXAM: J45.909 - Unspecified asthma, uncomplicated COMPARISON: 05/17/2022 ORDER DATE: 04/12/2023 3:57 PM FINDINGS: The lungs are clear of infiltrate. The cardiac and mediastinal outlines are unremarkable. There ar e no significant pleural effusions . No significant abnormalities are noted in the spine or remainder of the bony thorax. IMPRESSION: NO ACUTE PULMONARY CHANGE.
== END 2023-04-12 15:52 | disposition home or self-care (01) ==
LOC: RAD 15:52
PROVIDERS: PCP Nurse Practitioner; Visit Provider Nurse Practitioner
DX: J45.909 Unspecified asthma, uncomplicated (principal)
CPT/HCPCS: 71046

== ENCOUNTER 2023-04-15 05:40 | Day surgery (SDC) | payer MEDICAID, SELFPAY ==
[2023-04-13 13:38] VITALS: BMI 62.3
[2023-04-15] MEDS: sodium chloride 0.9% 1,000 ML 30 ML IV (06:36)
--- NOTE | 2023-04-15 06:43 | P.HPUD_ITS ---
Surgery/Procedure H&P Update DATE OF PROCEDURE: April 15, 2023 DATE H&P PERFORMED: 02/15/20 H&P UPDATE INFORMATION: I have reviewed H&P completed within last 30 days, I have examined patient prior to procedure, No changes to prior documentation and H&P is in [facility] EMR on date indicated PLANNED PROCEDURE: Operation Date: 04/15/23 08:00 Proposed Procedures p Colonoscopy 93165,K59.09(Not Applicable) - Chris Mansfield MD
[2023-04-15 06:56] VITALS: BP 164/102; PULSE 84; RESP 18; TEMP 36.3; O2SAT 96; BMI 62.3
[2023-04-15 06:57] LABS: Glucose Point of Care 93 mg/dL (70-110)
[2023-04-15 07:23] LABS: Potassium 2.8 mmol/L (3.5-5.1)
--- NOTE | 2023-04-15 07:24 | PC.NURSE ---
Potassium 2.8. Critical called to Dr Marie and ordered 20 meq k-rider with lido. Will recheck potassium after krider. Education provided to patient. Verbalized understanding.
[2023-04-15] MEDS: lidocaine 1% 5 ML in potassium chloride premix 100 ML 52.5 ML IV (07:33)
--- NOTE | 2023-04-15 07:35 | ANES.PREANE2 ---
Pre-Anesthetic Assessment Height/Weight: Height 1.55 m Weight 149.685 kg Temp Pulse Resp BP Pulse Ox O2 Del Method 97.4 F L 84 18 164/102 96 Room Air 04/15/23 06:56 04/15/23 06:56 04/15/23 06:56 04/15/23 06:56 04/15/23 06:56 04/15/23 06:56 Preop Diagnosis: chronic constipation Operation Date: 04/15/23 08:00 Proposed Procedures p Colonoscopy 24458,K59.09(Not Applicable) - Chris Mansfield MD Familial anesthetic complications: none Was Beta Magdiel taken within 24 hours: N/A Was Clonidine taken within 24 hours: N/A Last intake: Intake Last Liquid Date 04/14/23 Last Liquid Time 22:00 Last Solid Date 04/13/23 Last Solid Time 18:30 Social No alcohol and No tobacco Exam alert and oriented x 3 Airway Submandibular: within normal limits Cervical ROM: within normal limits Mallampati: Class II Dentition: other (multiple missing, poor dentition, none reported loose per patient) Pulmonary Asthma CV/HEM Hypertension None reported Hepatic None reported GI Gastroesophageal Reflux Disease Metabolic Diabetes Mellitus, Hyperlipidemia and Morbid Obesity [facility] [place] None reported Neuropsych Cerebrovascular Accident (no residual) and Seizure ( had a couple seizures after stroke not on meds, none since then. aobut 7 years ago) Anesthetic Plan ASA status: 3 Anesthesia: Anesthesia Evaluation, General and MAC Risk of > 500 ml blood loss (7ml/kg in children): No Medications/Allergies Home Medications Medication Instructions Recorded Confirmed Last Taken Type blood-glucose meter (OneTouch #1 ea 02/18/20 04/15/23 04/14/23 Rx Ultra2 Meter kit) albuterol sulfate 2.5 mg/3 mL 2.5 mg (3 mL) inhalation Q4H PRN 05/08/20 04/15/23 04/14/23 Rx (0.083 %) solution for nebulization shortness of breath or wheezing #75 mL nebulizers (VixOne Nebulizer-Adult #1 ea 08/07/20 04/15/23 04/14/23 Rx Mask) travoprost 0.004 % eye drops 1 drp ophthalmic (eye) .HC 08/07/20 04/15/23 04/14/23 History cane #1 ea 05/04/22 04/15/23 04/14/23 Rx lancets (OneTouch UltraSoft See Rx Instructions .Route 10/06/22 04/15/23 04/14/23 Rx Lancets) .COMPLEX #100 ea blood sugar diagnostic #150 ea 01/17/23 04/15/23 04/14/23 Rx albuterol sulfate 90 mcg/actuation 2 puff inhalation Q4H PRN 03/03/23 04/15/23 04/14/23 Rx aerosol inhaler (Ventolin HFA) shortness of breath or wheezing #18 grams cetirizine 10 mg tablet 10 mg PO DAILY #30 tabs 03/03/23 04/15/23 04/14/23 Rx chlorthalidone 50 mg tablet 50 mg PO DAILY #30 tabs 03/03/23 04/15/23 04/14/23 Rx clopidogrel 75 mg tablet (Plavix) 75 mg PO DAILY #30 tabs 03/03/23 04/15/23 04/07/23 Rx dapagliflozin propanediol 5 mg 5 mg PO QAM #30 tabs 03/03/23 04/15/23 04/14/23 Rx tablet (Farxiga) duloxetine 20 mg capsule,delayed 20 mg PO BID #60 caps 03/03/23 04/15/23 04/14/23 Rx release (Cymbalta) ergocalciferol (vitamin D2) 1,250 1,250 mcg PO .weekly #4 caps 03/03/23 04/15/23 04/14/23 Rx mcg (50,000 unit) capsule insulin aspart U-100 100 unit/mL See Rx Instructions SUBCUT TID #45 03/03/23 04/15/23 04/14/23 Rx (3 mL) subcutaneous pen (Novolog mL FlexPen U-100 Insulin aspart) insulin degludec 200 unit/mL (3 140 unit (0.7 mL) SUBCUT DAILY #21 03/03/23 04/15/23 04/14/23 Rx mL) subcutaneous pen (Tresiba mL FlexTouch U-200 insulin) pen needle, diabetic 31 gauge x #200 ea 03/03/23 04/15/23 04/14/23 Rx 5/16 (BD Ultra-Fine Short Pen Needle) polyethylene glycol 3350 17 17 g PO DAILY #510 grams 03/03/23 04/15/23 04/14/23 Rx gram/dose oral powder (Miralax) rosuvastatin 40 mg tablet (Crestor) 40 mg PO DAILY #30 tabs 03/03/23 04/15/23 04/14/23 Rx Cane #1 ea 03/04/23 04/15/23 04/14/23 Rx umeclidinium 62.5 mcg-vilanterol 1 inh inhalation Q24H #60 ea 03/29/23 04/15/23 04/14/23 Rx 25 mcg/actuation powdr for inhalation (Anoro Ellipta) dulaglutide 1.5 mg/0.5 mL 1.5 mg (0.5 mL) SUBCUT .weekly #2 03/31/23 04/15/23 04/14/23 Rx subcutaneous pen injector mL (Trulicity) potassium chloride 20 mEq 40 meq PO DAILY 3 days #6 tabs 04/12/23 04/15/23 04/14/23 Rx tablet,extended release Allergies Allergy/AdvReac Type Severity Reaction Status Date / Time doxycycline Allergy Intermediate ALGY-Hives Verified 04/15/23 06:34 aspirin Allergy ADR-Itching Verified 04/15/23 06:34 cefaclor [From [facility]] Allergy ADR-Itching Verified 04/15/23 06:34 Penicillins Allergy ADR-Itching Verified 04/15/23 06:34 Sulfa (Sulfonamide Allergy ALGY-Difficulty Verified 04/15/23 06:34 Antibiotics) Breathing Influenza Virus Vaccines AdvReac Severe ADR-Chest Verified 04/15/23 06:34 Pain metformin AdvReac Severe ADR-Diarrhe Verified 04/15/23 06:34 a tramadol AdvReac Severe Body pain Verified 04/15/23 06:34 Current Medications Generic Name Dose Route Start Last Admin Trade Name Freq PRN Reason Stop Dose Admin Sodium Chloride 1,000 mls @ 30 mls/hr 04/15/23 06:30 04/15/23 06:36 Sodium Chloride 0.9% IV 30 mls/hr .Q24H HALIMA Administration Lidocaine HCl 5 ml/ Potassium 105 mls @ 52.5 mls/hr 04/15/23 08:00 04/15/23 07:33 Chloride IV 04/15/23 09:59 52.5 mls/hr ONCE ONE Administration [facility] Anesthesia Medical History Allergic rhinitis due to pollen Anxiety Asthma due to seasonal allergies BMI 60.0-69.9, adult Degenerative disc disease, lumbar Diabetes Essential (primary) hypertension History of CVA (cerebrovascular accident) Hypercholesterolemia Migraine Neck pain with history of cervical spinal surgery Obesity Osteoarthritis thoracic spine Personal history of transient ischemic attack (TIA), and cerebral infarction without residual deficits PVC (premature ventricular contraction) Surgical History H/O neck surgery C -spine with plate 2000 History of section 4 times History of endarterectomy Right History of endometrial ablation History of knee surgery Left History of tonsillectomy Family History Mother Diabetes Heart disease Hypertension Father Diabetes Heart disease Hypertension Cancer Unknown type Sister Diabetes Heart disease Hypertension Brother Diabetes Heart disease Hypertension Family/Other Stroke Social History Smoking and tobacco status: never smoked Second hand smoke exposure: No Smoking risk assessment/counseling performed?: No Alcohol intake: never Desire information about alcohol rehabilitation?: No Counseling given: No Substance/Drug Use: never Desire information about substance/drug rehabilitation?: No Counseling given: No Caregiver/support person: No Lives independently: Yes Household members: spouse Housing: Apartment Marital status: Unknown Current occupational status: unemployed Do you think of yourself as: Straight/Heterosexual Current gender identity: Female Data Anesthesia 04/15/23 06:52 BMP 04/15/23 06:52 Potassium 2.8 L* Cardiac Studies: No Data to Display
--- NOTE | 2023-04-15 09:44 | PC.NURSE ---
Otis morales. Patient tolerated well. Anesthesia ordered to redraw potassium @ 1000. Pt and aware.
[2023-04-15 10:34] LABS: Potassium 3.2 mmol/L (3.5-5.1)
--- NOTE | 2023-04-15 10:49 | PC.NURSE ---
Potassium 3.2, anesthesia notified and will proceed with case. Cancer treatment center nurse, Ana, notified of replacement of potassium this morning. They will follow-up with patient on Tuesday when Dr morse.
[2023-04-15 11:22] VITALS: BP 115/72; PULSE 74; RESP 20; TEMP 36.2; O2SAT 94
[2023-04-15 11:31] VITALS: BP 110/79; PULSE 83; RESP 20; O2SAT 94
[2023-04-15 11:40] VITALS: BP 144/85; PULSE 70; RESP 20; O2SAT 94
--- NOTE | 2023-04-15 11:45 | ANE.PACU2 ---
Inpatient post-anesthesia follow up: Airway intact: Yes Vital signs: Temperature 97.2 F Pulse Rate 70 Respiratory Rate 20 Blood Pressure 144/85 Pulse Oximetry 94 Oxygen Delivery Me thod Room Air Oxygen Flow Rate Fraction of Inspir ed Oxygen Hydration adequate: Yes Nausea and vomiting: No Pain level: 1 Mental status: Baseline
== END 2023-04-15 12:05 | disposition home or self-care (01) ==
PROVIDERS: Anesthesiology; PCP Nurse Practitioner; Visit Provider Surgery
PROC: 0DJD8ZZ Inspection of Lower Intestinal Tract, Via Natural or Artificial Opening Endoscopic (ICD-10-PCS; CPT 45378; principal; 2023-04-15 08:00)
DX: K59.09 Other constipation (principal); K64.8 Other hemorrhoids; I10 Essential (primary) hypertension; E11.9 Type 2 diabetes mellitus without complications; E78.5 Hyperlipidemia, unspecified; E66.01 Morbid (severe) obesity due to excess calories; Z68.44 Body mass index [BMI] 60.0-69.9, adult; Z79.4 Long term (current) use of insulin; Z86.73 Personal history of transient ischemic attack (TIA), and cerebral infarction without residual deficits; E78.00 Pure hypercholesterolemia, unspecified
CPT/HCPCS: 36415; 36416; 45378; 82962; 84132; 96365; J2704; J3480; J7030

== ENCOUNTER → 2023-04-21 14:09 | Outpatient (BNVA) | payer MEDICAID, SELFPAY | PROVIDERS: PCP Nurse Practitioner; Visit Provider Student in an Organized Health Care Education/Training Program | DX: M17.12 Unilateral primary osteoarthritis, left knee | CPT/HCPCS: 20610; 99204; J3301 ==

== ENCOUNTER → 2023-05-02 08:22 | Outpatient (BNVA) | payer MEDICAID, SELFPAY | PROVIDERS: PCP Nurse Practitioner; Visit Provider Internal Medicine Medical Oncology | DX: E87.6 Hypokalemia (principal); D35.00 Benign neoplasm of unspecified adrenal gland | CPT/HCPCS: 84132 ==

== ENCOUNTER 2023-05-10 14:06 | Oncology outpatient (recurring) (ONCR) | payer MEDICAID, SELFPAY ==
[2023-04-12 16:01] LABS: Basophils # 0.1 10^3/uL (0.0-0.1); Basophils % 0.4 %; Eosinophils # 0.4 10^3/uL (0.0-0.8); Eosinophils % 2.6 %; Hematocrit 45.7 % (36-47); Lymphocytes # 2.9 10^3/uL (0.8-4.8); Lymphocytes % 19.6 %; Mean Corpuscular HGB Conc 31.9 g/dL (30-55); Mean Corpuscular Hemoglobin 27.4 pg (27-33); Mean Corpuscular Volume 85.7 fl (85-98); Mean Platelet Volume 9.3 fL (7.4-10.4); Monocytes # 0.8 10^3/uL (0.2-0.9); Monocytes % 5.7 %; Neutrophils # 10.42 10^3/uL (1.8-7.7); Neutrophils % 71.4 %; Nucleated Red Blood Cells % 0 %; Platelet Count 415 10^3/cmm (157-399); Red Blood Count 5.33 10^6/uL (3.85-5.65); White Blood Count 14.61 10^3/uL (3.29-11.43)
[2023-04-12 16:18] LABS: Alanine Aminotransferase 16 U/L (0-33); Albumin Level 4.1 g/dL (3.5-5.2); Alkaline Phosphatase 97 U/L (35-105); Anion Gap 12.9 (5-19); Aspartate Amino Transferase 26 U/L (0-32); Blood Urea Nitrogen 21 mg/dL (8-23); Calcium 9.7 mg/dL (8.5-10.5); Carbon Dioxide 35 mmol/L (22-29); Chloride 93 mmol/L (98-107); Globulin 3.7 g/dL (1.3-4.6); Glomerular Filtration Rate 101.6 mL/min (90-130); Glucose 206 mg/dL (65-115); Lactate Dehydrogenase 197 U/L (135-214); Osmolality Calculated 295 mOsm/kg (285-295); Sodium 138 mmol/L (136-145); Total Bilirubin 1.2 mg/dL (0.15-1.2); Total Protein 7.8 g/dL (6.6-8.7)
[2023-04-12 16:23] LABS: Potassium 2.9 mmol/L (3.5-5.1)
[2023-04-12 18:26] LABS: LAB Peripheral Smear Sent for Review
[2023-04-16 17:09] LABS: P190 BCR ALB1 NOT DETECTED; P190 BCR ALB1 Yes Test Yes; P210 BCR ALB1 NOT DETECTED; P210 BCR ALB1 Yes Test Yes; Prior Results BLOOD; Source blood
[2023-04-21 22:25] LABS: CALR Exon 9 Mutation NOT DETECTED (NOT DETECTED); CSF3R Exon 14/17 Mutation NOT DETECTED (NOT DETECTED); JAK2 Exon 12 Mutation NOT DETECTED (NOT DETECTED); JAK2 V617 Block Specimen ID NG; JAK2 V617 Clinical Indication NG; JAK2 V617 Mutation NOT DETECTED (NOT DETECTED); JAK2 V617 Specimen Source BLOOD; MPL Exon 12 Mutation NOT DETECTED (NOT DETECTED)
[2023-04-22 08:37] LABS: Potassium 3.1 mmol/L (3.5-5.1)
[2023-04-22 09:10] VITALS: BP 152/75; PULSE 81; RESP 16; TEMP 36.8; O2SAT 92
== END 2023-05-10 23:59 | disposition home or self-care (01) ==
PROVIDERS: PCP Nurse Practitioner; Visit Provider Internal Medicine Medical Oncology
DX: D72.829 Elevated white blood cell count, unspecified (principal); I10 Essential (primary) hypertension; Z79.899 Other long term (current) drug therapy
CPT/HCPCS: 36415; 80053; 81206; 81207; 81263; 81270; 81279; 81339; 81479; 82232; 82668; 83615; 84132; 85025; 88185; 88264; 88271; 88367; 88374; 99205; 99214

== ENCOUNTER → 2023-05-26 09:02 | Outpatient (BNVA) | payer MEDICAID, SELFPAY | PROVIDERS: PCP Nurse Practitioner; Visit Provider Nurse Practitioner | DX: E11.9 Type 2 diabetes mellitus without complications (principal) | CPT/HCPCS: 80053; 80061; 81000; 83036; 87077; 87086; 87184 ==

== ENCOUNTER 2023-08-18 13:27 | Oncology outpatient (recurring) (ONCR) | payer MEDICAID, SELFPAY ==
[2023-08-18 13:56] LABS: Basophils # 0.1 10^3/uL (0.0-0.1); Basophils % 0.5 %; Eosinophils # 0.5 10^3/uL (0.0-0.8); Eosinophils % 3.6 %; Lymphocytes # 4.4 10^3/uL (0.8-4.8); Lymphocytes % 32.2 %; Mean Corpuscular HGB Conc 31.9 g/dL (30-55); Mean Corpuscular Hemoglobin 28.2 pg (27-33); Mean Corpuscular Volume 88.5 fl (85-98); Mean Platelet Volume 9.3 fL (7.4-10.4); Monocytes # 0.9 10^3/uL (0.2-0.9); Monocytes % 6.3 %; Neutrophils # 7.83 10^3/uL (1.8-7.7); Nucleated Red Blood Cells % 0 %; Platelet Count 410 10^3/cmm (157-399); Red Blood Count 4.86 10^6/uL (3.85-5.65); Red Cell Distribution Width 14.7 % (12.1-15.1); White Blood Count 13.74 10^3/uL (3.29-11.43)
[2023-08-18 15:37] LABS: Anion Gap 15.1 (5-19); Blood Urea Nitrogen 11 mg/dL (8-23); Calcium 9.3 mg/dL (8.5-10.5); Carbon Dioxide 32 mmol/L (22-29); Chloride 101 mmol/L (98-107); Creatinine Clr Calc Pharmacy 215.3221; Glomerular Filtration Rate 162.3 mL/min (90-130); Glucose 170 mg/dL (65-115); Magnesium 1.8 mg/dL (1.7-2.3); Osmolality Calculated 301 mOsm/kg (285-295); Potassium 4.1 mmol/L (3.5-5.1); Sodium 144 mmol/L (136-145)
== END 2023-09-08 23:59 | disposition home or self-care (01) ==
PROVIDERS: Nurse Practitioner Family; PCP Nurse Practitioner; Visit Provider Internal Medicine Medical Oncology
DX: E87.6 Hypokalemia (principal); D72.829 Elevated white blood cell count, unspecified; D75.839 Thrombocytosis, unspecified; Z13.89 Encounter for screening for other disorder; I10 Essential (primary) hypertension; J44.9 Chronic obstructive pulmonary disease, unspecified; E66.01 Morbid (severe) obesity due to excess calories; Z68.44 Body mass index [BMI] 60.0-69.9, adult
CPT/HCPCS: 36415; 80048; 83735; 85025; 99214

== ENCOUNTER → 2023-10-03 10:59 | Outpatient (BNVA) | payer MEDICAID, SELFPAY | PROVIDERS: PCP Family Medicine; Visit Provider Family Medicine | DX: I10 Essential (primary) hypertension (principal); E78.00 Pure hypercholesterolemia, unspecified; E11.69 Type 2 diabetes mellitus with other specified complication; Z79.4 Long term (current) use of insulin; E55.9 Vitamin D deficiency, unspecified; E87.6 Hypokalemia; J45.909 Unspecified asthma, uncomplicated; Z86.73 Personal history of transient ischemic attack (TIA), and cerebral infarction without residual deficits; E11.9 Type 2 diabetes mellitus without complications; M51.36 Other intervertebral disc degeneration, lumbar region | CPT/HCPCS: 80053; 80061; 82306; 83036; 84443; 85025 ==

== ENCOUNTER → 2023-10-04 13:41 | Outpatient (BNVA) | payer MEDICAID, SELFPAY | PROVIDERS: PCP Family Medicine; Visit Provider Student in an Organized Health Care Education/Training Program | DX: M94.262 Chondromalacia, left knee (principal); M17.12 Unilateral primary osteoarthritis, left knee | CPT/HCPCS: 20610; 99213; J3301 ==

== ENCOUNTER → 2023-10-13 12:47 | Outpatient (BNVA) | payer MEDICAID, SELFPAY | PROVIDERS: PCP Family Medicine; Visit Provider Orthopaedic Surgery | DX: M54.9 Dorsalgia, unspecified (principal); M48.062 Spinal stenosis, lumbar region with neurogenic claudication | CPT/HCPCS: 72110; 99204 ==

== ENCOUNTER 2023-11-30 14:17 | Outpatient (CLI) | payer MEDICAID, SELFPAY ==
--- NOTE | 2023-11-30 15:15 | MR_ITS ---
WS: [id number] MRI LUMBAR SPINE WITH CONTRAST TECHNIQUE: Sagittal T1, T2 and STIR imaging. Axial T1 and T2 imaging. Post gadolinium imaging was obt ained. CLINICAL INFORMATION: M48.062 - Spinal stenosis, lumbar region with neurogenic ... COMPARISON: CT 03/12 FINDINGS: Some images degraded by motion. Incidental hemangioma L1. Disc bulging worse L4-L5 and L5-S1. Disc space narrowing worse at L5-S1. Pr ior cervical fusion with ACDF C5-C7. Disc bulging worse at C7-T1 in the cervical spine with mild cent ral canal stenosis. Mild central canal stenosis partially visualized in the lower thoracic spine at T10-11. L1-L2: Mild annular bulging. Mild facet arthropathy. Small LEFT foraminal protrusion with mild LEFT f oraminal narrowing. Spinal canal is patent. L2-L3: No significant disc bulging. Mild facet arthropathy. Spinal canal and foramen are patent. L3-L4: Mild annular bulging. Mild facet arthropathy. Mild RIGHT and no significant LEFT foraminal rashida rowing. Slight narrowing of the RIGHT subarticular recess. L4-L5: Broad-based central disc protrusion with moderate central canal stenosis. Impingement of trave rsing L5 nerve roots. Moderate facet arthropathy. Mild RIGHT greater than LEFT foraminal narrowing. L5-S1: Slight retrolisthesis. Disc osteophyte complex with central protrusion. Moderate central canal stenosis with impingement of traversing S1 nerve roots. Moderate facet arthropathy. Moderate bilater al foraminal narrowing. Visualized pelvic bony structures: Normal. Paravertebral soft tissues: Normal. MR/MR lumbar spine wo/w con [id number] IMPRESSION: 1. Mild lumbar curve. No acute compression. 2. Moderate central canal stenosis L4-L5 and L5-S1 described above. 3. Moderate bilateral L5-S1 foraminal narrowing. 4. Slight narrowing of the RIGHT L3-4 subarticular recess 5. Mild central canal stenosis lower thoracic spine T10-11 partially evaluated .
[2023-11-30] MEDS: gadobenate dimeglumine 20 mL vial IV (15:55)
== END 2023-11-30 14:18 | disposition home or self-care (01) ==
LOC: RAD 14:17
PROVIDERS: PCP Family Medicine; Visit Provider Orthopaedic Surgery
DX: M48.062 Spinal stenosis, lumbar region with neurogenic claudication (principal); M48.061 Spinal stenosis, lumbar region without neurogenic claudication; M48.08 Spinal stenosis, sacral and sacrococcygeal region; M99.63 Osseous and subluxation stenosis of intervertebral foramina of lumbar region; M99.64 Osseous and subluxation stenosis of intervertebral foramina of sacral region; M43.16 Spondylolisthesis, lumbar region; M51.24 Other intervertebral disc displacement, thoracic region
CPT/HCPCS: 72158; A9577

== ENCOUNTER 2023-12-22 12:31 | Oncology outpatient (recurring) (ONCR) | payer MEDICAID, SELFPAY ==
[2023-12-22 13:08] LABS: Basophils # 0.1 10^3/uL (0.0-0.1); Basophils % 0.4 %; Eosinophils # 0.3 10^3/uL (0.0-0.8); Eosinophils % 2.1 %; Hematocrit 43.4 % (36-47); Lymphocytes # 4.3 10^3/uL (0.8-4.8); Lymphocytes % 28.4 %; Mean Corpuscular Hemoglobin 28.5 pg (27-33); Mean Corpuscular Volume 89.1 fl (85-98); Mean Platelet Volume 9.4 fL (7.4-10.4); Monocytes # 0.9 10^3/uL (0.2-0.9); Monocytes % 5.8 %; Neutrophils # 9.42 10^3/uL (1.8-7.7); Nucleated Red Blood Cells % 0 %; Platelet Count 364 10^3/cmm (157-399); Red Blood Count 4.87 10^6/uL (3.85-5.65); Red Cell Distribution Width 14.4 % (12.1-15.1); White Blood Count 14.97 10^3/uL (3.29-11.43)
[2023-12-22 13:28] LABS: Alanine Aminotransferase 16 U/L (0-33); Albumin Level 3.6 g/dL (3.5-5.2); Alkaline Phosphatase 94 U/L (35-105); Anion Gap 13.2 (5-19); Aspartate Amino Transferase 14 U/L (0-32); Blood Urea Nitrogen 19 mg/dL (8-23); Calcium 9.2 mg/dL (8.5-10.5); Carbon Dioxide 29 mmol/L (22-29); Chloride 99 mmol/L (98-107); Globulin 3.5 g/dL (1.3-4.6); Glomerular Filtration Rate 125.4 mL/min (90-130); Glucose 201 mg/dL (65-115); Osmolality Calculated 292 mOsm/kg (285-295); Potassium 4.2 mmol/L (3.5-5.1); Sodium 137 mmol/L (136-145); Total Bilirubin 0.9 mg/dL (0.15-1.2); Total Protein 7.1 g/dL (6.6-8.7)
== END 2024-01-08 23:59 | disposition home or self-care (01) ==
PROVIDERS: Nurse Practitioner Family; PCP Family Medicine; Visit Provider Internal Medicine Medical Oncology
DX: D72.829 Elevated white blood cell count, unspecified (principal); E87.6 Hypokalemia
CPT/HCPCS: 36415; 80053; 81263; 82232; 85025; 88185; 88264; 88271; 88367; 88374; 99214

== ENCOUNTER → 2023-12-29 13:18 | Outpatient (BNVA) | payer MEDICAID, SELFPAY | PROVIDERS: PCP Family Medicine; Visit Provider Family Medicine | DX: I10 Essential (primary) hypertension (principal); E78.00 Pure hypercholesterolemia, unspecified; E11.69 Type 2 diabetes mellitus with other specified complication; Z79.4 Long term (current) use of insulin; E55.9 Vitamin D deficiency, unspecified | CPT/HCPCS: 80053; 80061; 82306; 83036; 84443 ==

== ENCOUNTER → 2024-01-10 12:48 | Outpatient (BNVA) | payer MEDICAID, SELFPAY | PROVIDERS: PCP Family Medicine; Visit Provider Student in an Organized Health Care Education/Training Program | DX: M17.12 Unilateral primary osteoarthritis, left knee (principal) | CPT/HCPCS: 20610; 99213; J3301 ==

== ENCOUNTER → 2024-01-19 10:28 | Outpatient (BNVA) | payer MEDICAID, SELFPAY | PROVIDERS: PCP Family Medicine; Visit Provider Orthopaedic Surgery | DX: M48.062 Spinal stenosis, lumbar region with neurogenic claudication (principal) | CPT/HCPCS: 99214 ==

== ENCOUNTER 2024-01-27 05:48 | Day surgery (SDC) | payer MEDICAID, SELFPAY ==
[2024-01-27] VITALS (12 sets, daily range): BP systolic 130–216; BP diastolic 69–112; PULSE 65–87; RESP 14–19; TEMP 36.2–36.6; O2SAT 90–100; BMI 62.3
--- NOTE | 2024-01-27 06:13 | P.ANESASSM_ITS ---
Pre-Anesthetic Assessment Height/Weight: Height 1.55 m Operation Date: 01/27/24 07:00 Proposed Procedures p L4-5, L5-S1 Lumbar Spine Decompression Lumbar Decompression(Not Applicable) - Adrian Fernandez, DO Was Beta Magdiel taken within 24 hours: N/A Social No alcohol and No tobacco Exam alert, oriented x 3, clear to auscultation bilaterally and regular rate & rhythm Airway Submandibular: within normal limits Cervical ROM: Other (limited by BMI considerations ) Mallampati: Class II Pulmonary Chronic Obstructive Pulmonary Disease CV/HEM Hypertension Metabolic Diabetes Mellitus, Hyperlipidemia and Morbid Obesity Neuropsych Anxiety Anesthetic Plan ASA status: 4 Anesthesia: General Medications/Allergies Home Medications Medication Instructions Recorded Confirmed Last Taken Type blood-glucose meter (OneTouch #1 ea 02/18/20 01/19/24 04/14/23 Rx Ultra2 Meter kit) nebulizers (VixOne Nebulizer-Adult #1 ea 08/07/20 01/19/24 04/14/23 Rx Mask) travoprost 0.004 % eye drops 1 drp ophthalmic (eye) .HC 08/07/20 01/27/24 04/14/23 History cane #1 ea 05/04/22 01/19/24 04/14/23 Rx blood sugar diagnostic #150 ea 01/17/23 01/19/24 04/14/23 Rx Cane #1 ea 03/04/23 01/19/24 04/14/23 Rx lancets See Rx Instructions .Route 05/26/23 01/27/24 01/26/24 Rx .COMPLEX #100 ea albuterol sulfate 2.5 mg/3 mL 2.5 mg (3 mL) inhalation Q4H PRN 12/29/23 01/27/24 Unknown Rx (0.083 %) solution for nebulization shortness of breath or wheezing #75 mL albuterol sulfate 90 mcg/actuation 2 puff inhalation Q4H PRN 12/29/23 01/27/24 01/26/24 Rx aerosol inhaler (Ventolin HFA) shortness of breath or wheezing #18 grams budesonide-formoterol HFA 80 2 inh inhalation BID #10.2 grams 12/29/23 01/27/24 01/25/24 Rx mcg-4.5 mcg/actuation aerosol inhaler (Symbicort) cetirizine 10 mg tablet 10 mg PO DAILY #30 tabs 12/29/23 01/27/24 01/26/24 Rx clopidogrel 75 mg tablet (Plavix) 75 mg PO DAILY #30 tabs 12/29/23 01/26/24 01/22/24 Rx dapagliflozin propanediol 10 mg 10 mg PO DAILY #30 tabs 12/29/23 01/26/24 01/25/24 Rx tablet (Farxiga) duloxetine 20 mg capsule,delayed 20 mg PO BID #60 caps 12/29/23 01/27/24 01/26/24 Rx release (Cymbalta) ergocalciferol (vitamin D2) 1,250 1,250 mcg PO .weekly #4 caps 12/29/23 01/27/24 01/24/24 Rx mcg (50,000 unit) capsule insulin aspart U-100 100 unit/mL See Rx Instructions SUBCUT TID #45 12/29/23 01/27/24 01/26/24 Rx (3 mL) subcutaneous pen (Novolog mL FlexPen U-100 Insulin aspart) pen needle, diabetic 31 gauge x #200 ea 12/29/23 01/19/24 Unknown Rx /16 (BD Ultra-Fine Short Pen Needle) rosuvastatin 40 mg tablet (Crestor) 40 mg PO DAILY #30 tabs 12/29/23 01/27/24 01/26/24 Rx valsartan 160 mg tablet 160 mg PO DAILY #30 tabs 12/29/23 01/27/24 01/26/24 Rx insulin degludec 200 unit/mL (3 160 unit SUBCUT DAILY 01/25/24 01/27/24 01/26/24 History mL) subcutaneous pen (Tresiba FlexTouch U-200 insulin) potassium chloride 10 mEq 5 meq PO DAILY 01/25/24 01/27/24 01/26/24 History tablet,extended release Allergies Allergy/AdvReac Type Severity Reaction Status Date / Time doxycycline Allergy Intermediate ALGY-Hives Verified 01/26/24 11:17 aspirin Allergy ADR-Itching Verified 01/26/24 11:17 cefaclor [From Replaced [facility]] Allergy ADR-Itching Verified 01/26/24 11:17 lemon Allergy tongue Verified 01/26/24 11:17 swelling Penicillins Allergy ADR-Itching Verified 01/26/24 11:17 Sulfa (Sulfonamide Allergy ALGY-Difficulty Verified 01/26/24 11:17 Antibiotics) Breathing Influenza Virus Vaccines AdvReac Severe ADR-Chest Verified 01/26/24 11:17 Pain metformin AdvReac Severe ADR-Diarrhe Verified 01/26/24 11:17 a tramadol AdvReac Severe Body pain Verified 01/26/24 11:17 PFSH Anesthesia Medical History Allergy to influenza vaccine Migraine BMI 60.0-69.9, adult Degenerative disc disease, lumbar Asthma due to seasonal allergies Osteoarthritis thoracic spine Neck pain with history of cervical spinal surgery Personal history of transient ischemic attack (TIA), and cerebral infarction without residual deficits Allergic rhinitis due to pollen History of CVA (cerebrovascular accident) Obesity Hypercholesterolemia Anxiety Essential (primary) hypertension PVC (premature ventricular contraction) Diabetes Surgical History Hx of esophagogastroduodenoscopy 2001 Hx of colonoscopy 2022 [facility] History of endometrial ablation History of section 4 times H/O neck surgery C -spine with plate 2000 History of tonsillectomy History of endarterectomy Right History of knee surgery Left Family History Mother Diabetes Heart disease Hypertension Father Diabetes Heart disease Hypertension Cancer Unknown type Sister Diabetes Heart disease Hypertension Brother Diabetes Heart disease Hypertension Family/Other Stroke Social History Smoking and tobacco/nicotine status: never used tobacco/nicotine Second hand smoke exposure: No Alcohol intake: never Substance/Drug Use: never Caregiver/support person: No Lives independently: Yes Household members: spouse Housing: Apartment Marital status: Unknown Current occupational status: unemployed Do you think of yourself as: Straight/Heterosexual Current gender identity: Female Data Anesthesia Cardiac Studies: No Data to Display
[2024-01-27] MEDS: labetalol 5 mg/mL SDV 20mL IVP ×2 (06:36→09:12)
[2024-01-27 06:46] LABS: Glucose Point of Care 195 mg/dL (70-110)
--- NOTE | 2024-01-27 06:47 | PC.NURSE ---
ANESTHESIA CONTACTED REGARDING PTS BP ABOVE 200 SYSTOLIC AND 100 SYSTOLIC. ORDERS GIVEN TO RN. LABETALOL 5MG IVP GIVEN. SURGEON AWARE.
--- NOTE | 2024-01-27 06:47 | W.PM.OPSUD ---
Surgery/Procedure H&P Update DATE OF PROCEDURE: January 27, 2024 DATE H&P PERFORMED: 01/25/24 H&P UPDATE INFORMATION: I have reviewed H&P completed within last 30 days, I have examined patient prior to procedure and No changes to prior documentation PREOP DIAGNOSIS: Lumbar stenosis with neurogenic claudication PLANNED PROCEDURE: Operation Date: 01/27/24 07:00 Proposed Procedures p L4-5, L5-S1 Lumbar Spine Decompression Lumbar Decompression(Not Applicable) - Adrian Fernandez DO
[2024-01-27] MEDS: sodium chloride 0.9% 1,000 ML 30 ML IV (06:58)
[2024-01-27] MEDS: clindamycin 600 MG/50 ML PREMIX 100 MG IV (07:04)
[2024-01-27] MEDS: lidocaine-epi 1% 20 mL INJ INJECTION (07:46)
--- NOTE | 2024-01-27 08:20 | PC.NURSE ---
large abrasion noted on patients left knee pre surgery
--- NOTE | 2024-01-27 09:02 | PC.NURSE ---
LARGE ABRASION OBSERVED ON PTS LEFT KNEE. PT REPORTS FALLING YESTERDAY. DRIED BLOOD PRESENT. NOT ACTIVELY BLEEDING.
--- NOTE | 2024-01-27 09:05 | PM.OP ---
Operative Report Date of procedure: January 27, 2024 Pre-op diagnosis: lumbar stenosis with neurogenic claudication Post-op diagnosis: same Procedure done: 1. L4-5 laminectomy with partial facetectomy 2. L5-S1 laminectomy with partial facetectomy Surgeon: Adrian Fernandez DO Estimated blood loss (mL): 15 Procedure: 1. L4-5 laminectomy with partial facetectomy 2. L5-S1 laminectomy with partial facetectomy Patient is brought to the operative suite. After undergoing anesthesia they are placed in the prone position. All areas of impingement are well padded. Patient is then prepped and draped in the normal sterile fashion. A skin incision is made over the L4-5 level. This is confirmed under c-arm guidance. A series of dilators are passed and the tubular retractor is docked on the L4 lamina. A bovie is used to clear the soft tissue off the lamina and the L 4/5 facet joint. A high speed demetris is then used to perform the laminectomy and take down the medial aspect of the L 4/5 facet joint. A kerrison rongeure was then used to take down the remaining lamina and smooth the edge of the laminectomy up to the point where the ligamentum flavum attaches. Attention was then brought to the medial aspect of the facet joint. The remaining medial aspect of the superior and inferior aspect of the facet joint were taken down with the kerrison from the pedicle of L4 to L 5. The facet joint had significant hypertrophy. Attention was then brought to the Ligamentum Flavum. The ligament was taken down from the lamina of L4 to L5 and out medially to the remaining facet joint. The ligament was thick. The dura was then exposed. The dura was in good repair. The L4 nerve was then traced with a curette out the L4/5 foramen and found to be adequately decompressed. The L5 nerve was traced with a curette around the L5 pedicle. The lateral recess was opened with a kerrison helping to further decompress the L5 nerve. Wound is then irrigated copiously with saline and surgiflo is used to stop any bleeding. The tubular retractor is removed and the A skin incision is made over the L5/S1 level. This is confirmed under c-arm guidance. A series of dilators are passed and the tubular retractor is docked on the L5 lamina. A bovie is used to clear the soft tissue off the lamina and the L 5/S1 facet joint. A high speed demetris is then used to perform the laminectomy and take down the medial aspect of the L 5/S1 facet joint. A kerrison rongeure was then used to take down the remaining lamina and smooth the edge of the laminectomy up to the point where the ligamentum flavum attaches. Attention was then brought to the medial aspect of the facet joint. The remaining medial aspect of the superior and inferior aspect of the facet joint were taken down with the kerrison from the pedicle of L5 to S1. The facet joint had significant hypertrophy. Attention was then brought to the Ligamentum Flavum. The ligament was taken down from the lamina of L5 to S1 and out medially to the remaining facet joint. The ligament was thick. The dura was then exposed. The dura was in good repair. The L5 nerve was then traced with a curette out the L5/S1 foramen and found to be adequately decompressed. The S1 nerve was traced with a curette around the S1 pedicle. The lateral recess was opened with a kerrison helping to further decompress the S1 nerve. Wound is then irrigated copiously with saline and surgiflo is used to stop any bleeding. The tubular retractor is removed and the wound is closed with vicryl and monocryl suture. Glue is then used to protect the wound. A sterile dressing is then placed. Patient was then placed in the supine position and transferred to the PACU in stable condition.
[2024-01-27] MEDS: fentaNYL 50 mcg/mL INJ 2mL IVP (09:10)
[2024-01-27] MEDS: HYDROcodone-acetaminophen 5-325 mg Tablet 1 TAB PO (09:47)
--- NOTE | 2024-01-27 09:55 | ANE.PACU2 ---
Inpatient post-anesthesia follow up: Airway intact: Yes Vital signs: Temperature 97.2 F Pulse Rate 69 Respiratory Rate 15 Blood Pressure 155/98 Pulse Oximetry 90 Oxygen Delivery Me thod Room Air Oxygen Flow Rate 6 Fraction of Inspir ed Oxygen Hydration adequate: Yes Nausea and vomiting: No Pain level: 4 Mental status: Baseline
--- NOTE | 2024-01-27 13:08 | XR_ITS ---
WS: [id number] Lumbar spine in the OR, C-arm fluoroscopy views, 01/27/2024 Clinical data: Lumbar decompression Comparison: Lumbar spine, 10/13/2023 Findings: Dr. Fernandez performed lumbar decompression. XR/XR lumbar spine 1V [id number] Impression: Lumbar decompression
== END 2024-01-27 10:16 | disposition home or self-care (01) ==
PROVIDERS: PCP Family Medicine; Visit Provider Orthopaedic Surgery
PROC: (CPT 63005; principal; 2024-01-27 07:00)
DX: M48.062 Spinal stenosis, lumbar region with neurogenic claudication (principal); J44.9 Chronic obstructive pulmonary disease, unspecified; I10 Essential (primary) hypertension; E11.9 Type 2 diabetes mellitus without complications; E78.5 Hyperlipidemia, unspecified; E66.01 Morbid (severe) obesity due to excess calories; Z68.44 Body mass index [BMI] 60.0-69.9, adult; F41.9 Anxiety disorder, unspecified; Z79.4 Long term (current) use of insulin
CPT/HCPCS: 63047; 63048; 36416; 72020; 76000; 82962; J1100; J2250; J2371; J2405; J2704; J2710; J3010; J3490; J7030

== ENCOUNTER 2024-01-28 08:32 | Emergency (ER) | payer MEDICAID, SELFPAY ==
[2024-01-28 08:33] VITALS: BP 151/74; PULSE 88; RESP 18; TEMP 36.7; O2SAT 93
[2024-01-28 09:13] VITALS: RESP 18; O2SAT 93
[2024-01-28] MEDS: orphenadrine 30 mg/mL Inj 2 mL 60 MG IM (09:13)
[2024-01-28] MEDS: dexamethasone 10 mg/mL INJ IM (09:13)
[2024-01-28] MEDS: morphine 4 mg/mL SDV 1 mL IVP (09:13)
[2024-01-28] MEDS: ketorolac 30 mg/mL INJ IVP (09:14)
--- NOTE | 2024-01-28 10:42 | ED_ITS ---
HPI - Back Pain/Injury General: Chief Complaint: Back Pain/Injury Stated Complaint: LOW BACK PAIN S/P FALL S/P SURG Time Seen by Provider: 01/28/24 08:52 History of Present Illness: 63-year-old female postop day 1 status p ost L4-5 5 S1 lumbar laminectomy and partial facetectomy. She stumbled yesterday when she was getting up off of the couch her left leg seem to give out underneath her she felt her knee. She fell again this morning she were able to get her up to the couch and then she went to a chair. She was get given fentanyl and route. She does not have any worsening of pain into her lower extremities. No urinary retention or fecal incontinence Associated symptoms: Deny abdominal pain, chills, dysuria, fever(s) or urinary urgency Review of Systems Const: Denies: fever(s) or chills Card: Denies: chest pain Resp: Denies: dyspnea GI: Denies: abdominal pain : Denies: dysuria, urinary frequency or urinary urgency Musc: Denies: neck pain or back pain Skin/Breast: Denies: rash PFSH ED PFSH: Medical History Allergy to influenza vaccine Migraine BMI 60.0-69.9, adult Degenerative disc disease, lumbar Asthma due to seasonal allergies Osteoarthritis thoracic spine Neck pain with history of cervical spinal surgery Personal history of transient ischemic attack (TIA), and cerebral infarction without residual deficits Allergic rhinitis due to pollen History of CVA (cerebrovascular accident) Obesity Hypercholesterolemia Anxiety Essential (primary) hypertension PVC (premature ventricular contraction) Diabetes Surgical History Hx of esophagogastroduodenoscopy 2001 Hx of colonoscopy 2022 [facility] History of endometrial ablation History of section 4 times H/O neck surgery C -spine with plate 2000 History of tonsillectomy History of endarterectomy Right History of knee surgery Left Family History Mother Diabetes Heart disease Hypertension Father Diabetes Heart disease Hypertension Cancer Unknown type Sister Diabetes Heart disease Hypertension Brother Diabetes Heart disease Hypertension Family/Other Stroke Social History Smoking and tobacco/nicotine status: never used tobacco/nicotine Second hand smoke exposure: No Alcohol intake: never Substance/Drug Use: never Caregiver/support person: No Lives independently: Yes Household members: spouse Housing: Apartment Marital status: Unknown Current occupational status: unemployed Do you think of yourself as: Straight/Heterosexual Current gender identity: Female Physical Exam Const: COMMON NORMALS: no acute distress GENERAL APPEARANCE: cooperative and comfortable ORIENTATION/CONSCIOUSNESS: Yes awake, Yes oriented to person, Yes oriented to place and Yes oriented to time HENMT: COMMON NORMALS: normocephalic, atraumatic and hearing grossly normal bilaterally HEAD & SCALP: normocephalic and atraumatic Resp: COMMON NORMALS: normal respiratory effort, No retractions, No use of accessory muscles and clear to auscultation bilaterally AUSCULTATION: clear to auscultation bilaterally Cardio: COMMON NORMALS: regular rate, regular rhythm and No murmurs present (Cardio) RATE: regular rate RHYTHM: regular rhythm GI: COMMON NORMALS: Soft to palpation and No hepatosplenomegaly present AUSCULTATION: Yes normoactive bowel sounds PALPATION: Yes Soft to palpation, No Tenderness to palpation present (GI), No Guarding due to palpation present (GI) and Yes No hepatosplenomegaly present Extremity: COMMON NORMALS: normal to inspection, capillary refill normal, no clubbing, cyanosis or edema, no calf tenderness and no pedal edema OTHER: Abrasions to the knees bilaterally Neuro: SENSORIUM/ORIENTATION: Yes oriented to person, Yes oriented to place and Yes oriented to time Skin: COMMON NORMALS: no rashes or lesions noted GENERAL SKIN EXAM: no rashes or lesions noted Course Vital Signs: Vital signs: Vital Signs Temperature 98.1 F 01/28/24 08:33 Pulse Rate 88 01/28/24 08:33 Respiratory Rate 18 01/28/24 09:13 Blood Pressure 151/74 01/28/24 08:33 Pulse Oximetry 93 01/28/24 09:13 Oxygen Delivery Me thod Room Air 01/28/24 08:33 MDM - Back Pain/Injury Medical Decision Making Improved with medications given no radicular symptoms. She fell on her knees do not believe she cause any direct trauma to the surgical site. Will discharge her home with steroid taper to standing continue other medications given by Dr. Fernandez as well as his restrictions follow-up as scheduled No radiology studies performed this visit Discharge Plan Discharge Patient Disposition: Home Clinical Impression: Lumbar radiculopathy, Status post lumbar laminectomy Condition: Stable Prescriptions: New tizanidine 4 mg tablet 4 mg PO Q6H PRN (Reason: muscle spasticity) Qty: 20 0RF Rx Instructions: do not exceed 3 doses per 24 hrs prednisone 20 mg tablet 20 mg PO TID Qty: 15 0RF Rx Instructions: 1 p.o. 3 times daily x3 days, 1 p.o. twice daily x2 days, 1 p.o. daily x2 days mupirocin 2 % ointment 1 applic topical BID Qty: 22 0RF No Action travoprost 0.004 % drops 1 drp ophthalmic (eye) .HC (DME) VixOne Nebulizer-Adult Mask Misc See Rx Instructions .ROUTE .MEDSUPPLY Qty: 1 0RF Rx Instructions: daily lancets Misc See Rx Instructions .ROUTE .COMPLEX Qty: 100 5RF Dose Instruction: test blood sugar three times daily as directed. Rx Instructions: test blood sugar three times daily as directed. Tresiba FlexTouch U-200 200 unit/mL (3 mL) insulin pen 160 unit SUBCUT DAILY Rx Instructions: Does not tolerate Levemir or Lantus potassium chloride 10 mEq tablet extended release 5 meq PO DAILY (DME) cane Device See Rx Instructions .Route Qty: 1 0RF Rx Instructions: As directed albuterol sulfate 2.5 mg /3 mL (0.083 %) solution for nebulization 2.5 mg INHALATION Q4H PRN (Reason: shortness of breath or wheezing) Qty: 75 2RF albuterol sulfate [Ventolin HFA] 90 mcg/actuation HFA aerosol inhaler 2 puff INHALATION Q4H PRN (Reason: shortness of breath or wheezing) Qty: 18 2RF budesonide-formoterol [Symbicort] 80-4.5 mcg/actuation HFA aerosol inhaler 2 inh inhalation BID Qty: 10.2 3RF cetirizine 10 mg tablet 10 mg PO DAILY Qty: 30 2RF clopidogrel [Plavix] 75 mg tablet 75 mg PO DAILY Qty: 30 2RF Farxiga 10 mg tablet 10 mg PO DAILY Qty: 30 2RF duloxetine [Cymbalta] 20 mg capsule,delayed release(DR/EC) 20 mg PO BID Qty: 60 2RF ergocalciferol (vitamin D2) 1,250 mcg (50,000 unit) capsule 1,250 mcg PO .weekly Qty: 4 2RF insulin aspart U-100 [Novolog FlexPen U-100 Insulin] 100 unit/mL (3 mL) insulin pen See Rx Instructions SUBCUT TID Qty: 45 2RF Rx Instructions: 10-50 units with meals SUBCUT three times daily; (DME) pen needle, diabetic [BD Ultra-Fine Short Pen Needle] 31 gauge x 5/16 needle See Rx Instructions .ROUTE .MEDSUPPLY Qty: 200 5RF Rx Instructions: use 4 day rosuvastatin [Crestor] 40 mg tablet 40 mg PO DAILY Qty: 30 2RF valsartan 160 mg tablet 160 mg PO DAILY Qty: 30 3RF (DME) blood-glucose meter [OneTouch Ultra2 Meter] Kit See Rx Instructions .ROUTE .MEDSUPPLY Qty: 1 0RF Rx Instructions: daily (DME) blood sugar diagnostic Strip See Rx Instructions .ROUTE .MEDSUPPLY Qty: 150 5RF Rx Instructions: 5 times day (DME) Cane See Rx Instructions .Route .MEDSUPPLY Qty: 1 0RF Rx Instructions: use for weight>300 pounds hydrocodone-acetaminophen 5-325 mg tablet 1 - 2 tab PO .Q4-6H Qty: 40 0RF Discharge Orders: Discharge ED (Routine); Ordered 01/28/24 Ordered By: Liam Rocha Referrals: Mary Treadwell MD [Primary Care Provider] - Discharge Diet: Usual diet Discharge Activity: Resume usual activity Patient Instructions: Opioid Safety, Pain Management Activity Restrictions/Additional Instructions: Thank you for choosing [facility] for your healthcare needs today. It is very important that you follow up as instructed or that you return to the Emergency Department should you have concerns or if your condition changes or worsens in any way. You are seen in the emergency room for back pain. He also had a little abrasion on your knees. Recommend using tizanidine and steroid taper as needed you are given initial dose of steroids in the emergency room start the oral steroid taper tomorrow. Continue to use the pain medications that Dr. Fernandez had prescribed at the time of discharge continue his discharge instructions as well. Coding Level of Care Code ED Hearing Care Professional for Kim Simmons
== END 2024-01-28 12:43 | disposition home or self-care (01) ==
PROVIDERS: Emergency Provider Family Medicine; PCP Family Medicine
DX: M54.16 Radiculopathy, lumbar region (principal); Z98.890 Other specified postprocedural states; Z79.02 Long term (current) use of antithrombotics/antiplatelets; Z79.4 Long term (current) use of insulin; S80.212A Abrasion, left knee, initial encounter; S80.211A Abrasion, right knee, initial encounter; Z86.73 Personal history of transient ischemic attack (TIA), and cerebral infarction without residual deficits; I10 Essential (primary) hypertension; E11.9 Type 2 diabetes mellitus without complications; W01.0XXA Fall on same level from slipping, tripping and stumbling without subsequent striking against object, initial encounter
CPT/HCPCS: 96372; 96374; 96375; 99284; J1100; J1885; J2270; J2360

== ENCOUNTER 2024-01-31 15:54 | Emergency (ER) | payer MEDICAID, SELFPAY ==
[2024-01-31 15:56] VITALS: BP 171/79; PULSE 71; TEMP 36.8; O2SAT 99; BMI 62.3
[2024-01-31 16:03] VITALS: BP 186/81; PULSE 68; RESP 20; O2SAT 98
--- NOTE | 2024-01-31 16:27 | XRR_ITS ---
PROCEDURE INFORMATION: Exam: XR Left Knee Exam date and time: 01/31/2024 4:40 PM Age: 63 years old Clinical indication: Injury or trauma; Fall; Blunt trauma; Knee; Left TECHNIQUE: Imaging protocol: Radiologic exam of the left knee. Views: 3 views. COMPARISON: CR XR knee LT 3V* [id number] 03/17/2023 2:45 PM FINDINGS: Bones/joints: Mild loss of joint space height the medial compartment. Osteophytes at the tibial spines and medial and lateral compartments. No acute fracture. No dislocation. Normal bone mineralization. No joint effusion. Osseous findings are stable. Soft tissues: No soft tissue swelling. No radiopaque foreign body. Stable small calcified enthesophyte at the left quadriceps tendon insertion. XR/XR knee LT 3V* [id number] IMPRESSION: 1. No acute fracture of the left knee. Followup radiographs recommended in 7-14 days if clinical concern for fracture persists. 2. Stable mild degenerative changes at the left knee. 3. Stable small calcified enthesophyte at the left quadriceps tendon ins the ertion.
--- NOTE | 2024-01-31 16:27 | XRR_ITS ---
PROCEDURE INFORMATION: Exam: XR Left Hip Exam date and time: 01/31/2024 4:37 PM Age: 63 years old Clinical indication: Injury or trauma; Fall; Blunt trauma (contusions or hematomas); Left; Hip; Additional info: Injury/fall TECHNIQUE: Imaging protocol: Radiologic exam of the left hip. Views: 2 or 3 views hip with pelvis when performed. COMPARISON: CR XR hip LT 2-3V wo/w pel* [id number] 03/17/2023 2:45 PM FINDINGS: Bones/joints: Small osteophytes and mild loss of joint space height at the left hip. No acute fracture. No dislocation. Normal bone mineralization. Soft tissues: No soft tissue swelling. No radiopaque foreign body. XR/XR hip LT 2-3V wo/w pel* [id number] IMPRESSION: 1. No acute fracture of the left hip. MRI would be recommended if clinical concern for fracture persists. 2. Stable mild degenerative changes at the left hip.
--- NOTE | 2024-01-31 16:27 | XRR_ITS ---
PROCEDURE INFORMATION: Exam: XR Left Tibia and Fibula Exam date and time: 01/31/2024 4:44 PM Age: 63 years old Clinical indication: Injury or trauma; Fall; Blunt trauma; Lower leg; Left TECHNIQUE: Imaging protocol: Radiologic exam of the left tibia and fibula. Views: 2 views. COMPARISON: No relevant prior studies available. FINDINGS: Bones/joints: Mild loss of joint space height the at medial compartment and osteophytes at the tibial spines and medial and lateral compartments of the left knee. No acute fracture. No dislocation. Normal bone mineralization. No joint effusion. Soft tissues: No soft tissue swelling. No radiopaque foreign body. Small calcified enthesophyte at the left quadriceps tendon insertion. Vasculature: Small calcified phleboliths anterior to the proximal tibia. XR/XR tibia fibula LT 2V [id number] IMPRESSION: 1. No acute fracture of the left tibia/fibula. Followup radiographs recommended in 7-14 days if clinical concern for fracture persists. 2. Mild degenerative changes at the left knee. 3. Small calcified enthesophyte at the left quadriceps tendon insertion.
--- NOTE | 2024-01-31 16:30 | W.ED.BACK ---
HPI - Back Pain/Injury General: Chief Complaint: Back Pain/Injury Stated Complaint: FALL Time Seen by Provider: 01/31/24 15:57 Source: patient and EMS Mode of arrival: EMS Limitations: no limitations History of Present Illness: Patient is a 63-year-old female with extensive past medical history here for complaints of left hip and lower extremity pain following a few falls several days ago. On 01/26 she underwent L4-L5 and L5-S1 laminectomy with partial facetectomies by Dr. Fernandez. Associated symptoms: Reports difficulty walking; Deny dysuria, fever(s) or hematuria Review of Systems Const: Denies: fever(s) Card: Denies: chest pain Resp: Denies: dyspnea : Denies: flank pain, dysuria or hematuria Musc: Reports: back pain (but feels like this has improved since surgery), extremity pain, joint pain and other (bruising to L LE); Denies: neck pain Neuro: Reports: difficulty walking; Denies: headache(s), numbness in extremities, weakness in extremities or sensory changes PFSH ED PFSH: Medical History Allergy to influenza vaccine Migraine BMI 60.0-69.9, adult Degenerative disc disease, lumbar Asthma due to seasonal allergies Osteoarthritis thoracic spine Neck pain with history of cervical spinal surgery Personal history of transient ischemic attack (TIA), and cerebral infarction without residual deficits Allergic rhinitis due to pollen History of CVA (cerebrovascular accident) Obesity Hypercholesterolemia Anxiety Essential (primary) hypertension PVC (premature ventricular contraction) Diabetes Surgical History Hx of esophagogastroduodenoscopy 2001 Hx of colonoscopy 2022 [facility] History of endometrial ablation History of section 4 times H/O neck surgery C -spine with plate 2000 History of tonsillectomy History of endarterectomy Right History of knee surgery Left Family History Mother Diabetes Heart disease Hypertension Father Diabetes Heart disease Hypertension Cancer Unknown type Sister Diabetes Heart disease Hypertension Brother Diabetes Heart disease Hypertension Family/Other Stroke Social History Smoking and tobacco/nicotine status: never used tobacco/nicotine Second hand smoke exposure: No Alcohol intake: never Substance/Drug Use: never Caregiver/support person: No Lives independently: Yes Household members: spouse Housing: Apartment Marital status: Unknown Current occupational status: unemployed Do you think of yourself as: Straight/Heterosexual Current gender identity: Female Course Vital Signs: Vital signs: Vital Signs Temperature 98.3 F 01/31/24 15:56 Pulse Rate 68 01/31/24 16:03 Respiratory Rate 20 H 01/31/24 16:03 Blood Pressure 186/81 01/31/24 16:03 Pulse Oximetry 98 01/31/24 16:03 Oxygen Delivery Me thod Room Air 01/31/24 16:03 Discharge Plan Discharge Condition: Stable Prescriptions: No Action travoprost 0.004 % drops 1 drp ophthalmic (eye) .HC (DME) VixOne Nebulizer-Adult Mask Misc See Rx Instructions .ROUTE .MEDSUPPLY Qty: 1 0RF Rx Instructions: daily lancets Misc See Rx Instructions .ROUTE .COMPLEX Qty: 100 5RF Dose Instruction: test blood sugar three times daily as directed. Rx Instructions: test blood sugar three times daily as directed. Tresiba FlexTouch U-200 200 unit/mL (3 mL) insulin pen 160 unit SUBCUT DAILY Rx Instructions: Does not tolerate Levemir or Lantus potassium chloride 10 mEq tablet extended release 5 meq PO DAILY (DME) cane Device See Rx Instructions .Route Qty: 1 0RF Rx Instructions: As directed albuterol sulfate 2.5 mg /3 mL (0.083 %) solution for nebulization 2.5 mg INHALATION Q4H PRN (Reason: shortness of breath or wheezing) Qty: 75 2RF albuterol sulfate [Ventolin HFA] 90 mcg/actuation HFA aerosol inhaler 2 puff INHALATION Q4H PRN (Reason: shortness of breath or wheezing) Qty: 18 2RF budesonide-formoterol [Symbicort] 80-4.5 mcg/actuation HFA aerosol inhaler 2 inh inhalation BID Qty: 10.2 3RF cetirizine 10 mg tablet 10 mg PO DAILY Qty: 30 2RF clopidogrel [Plavix] 75 mg tablet 75 mg PO DAILY Qty: 30 2RF Farxiga 10 mg tablet 10 mg PO DAILY Qty: 30 2RF duloxetine [Cymbalta] 20 mg capsule,delayed release(DR/EC) 20 mg PO BID Qty: 60 2RF ergocalciferol (vitamin D2) 1,250 mcg (50,000 unit) capsule 1,250 mcg PO .weekly Qty: 4 2RF insulin aspart U-100 [Novolog FlexPen U-100 Insulin] 100 unit/mL (3 mL) insulin pen See Rx Instructions SUBCUT TID Qty: 45 2RF Rx Instructions: 10-50 units with meals SUBCUT three times daily; (DME) pen needle, diabetic [BD Ultra-Fine Short Pen Needle] 31 gauge x 5/16 needle See Rx Instructions .ROUTE .MEDSUPPLY Qty: 200 5RF Rx Instructions: use 4 day rosuvastatin [Crestor] 40 mg tablet 40 mg PO DAILY Qty: 30 2RF valsartan 160 mg tablet 160 mg PO DAILY Qty: 30 3RF (DME) blood-glucose meter [[employer] Ultra2 Meter] Kit See Rx Instructions .ROUTE .MEDSUPPLY Qty: 1 0RF Rx Instructions: daily (DME) blood sugar diagnostic Strip See Rx Instructions .ROUTE .MEDSUPPLY Qty: 150 5RF Rx Instructions: 5 times day (DME) Cane See Rx Instructions .Route .MEDSUPPLY Qty: 1 0RF Rx Instructions: use for weight>300 pounds nitrofurantoin monohyd/m-cryst [Macrobid] 100 mg capsule 100 mg PO Q12H 5 Days Qty: 10 0RF Rx Instructions: must administer with a meal/food hydrocodone-acetaminophen 5-325 mg tablet 1 - 2 tab PO .Q4-6H Qty: 40 0RF tizanidine 4 mg tablet 4 mg PO Q6H PRN (Reason: muscle spasticity) Qty: 20 0RF Rx Instructions: do not exceed 3 doses per 24 hrs prednisone 20 mg tablet 20 mg PO TID Qty: 15 0RF Rx Instructions: 1 p.o. 3 times daily x3 days, 1 p.o. twice daily x2 days, 1 p.o. daily x2 days mupirocin 2 % ointment 1 applic topical BID Qty: 22 0RF Referrals: Mary Treadwell MD [Primary Care Provider] - Coding Level of Care Code ED Research Associate Quality Control Qc for Rajendrag Iris
[2024-01-31 16:33] VITALS: BP 187/77; PULSE 70; O2SAT 97
--- NOTE | 2024-01-31 16:33 | ED_ITS ---
HPI - Extremity Injury (Lower) General: Chief Complaint: Back Pain/Injury Stated Complaint: FALL Time Seen by Provider: 01/31/24 15:57 Source: patient Mode of arrival: EMS Limitations: no limitations History of Present Illness: Patient is a 63-year-old female with extensive past medical history here for complaints of left hip and lower extremity pain following a few falls several days ago. On 01/26 she underwent L4-L5 and L5-S1 laminectomy with partial facetectomies by Dr. Fernandez. Patient states the following day after surgery she experienced 2 falls in her home. She was subsequently seen here in the emergency department on 01/27. She states no imaging was obtained at that time. She states since then she has noticed some bruising to the left lower extremity stating it looks awful . She has not really noticed worsening pain. She feels like her lower back is improving since surgery. She states she has a nurse that is stressing her surgical incision. She is not running fevers. Her main complaint today is some pain around her left hip and knee. Denies numbness, tingling, loss of sensation to the extremity. Apart from the bruising, she has not noticed any color/temperature changes. MD complaint: hip injury, knee injury and leg injury Onset (ago): day(s) Injury: Left: knee Place: home Severity: moderate Relieving factors: immobilization Exacerbating factors: weight bearing Context: fall Associated symptoms: Reports no associated symptoms Other symptoms: none Review of Systems Const: Denies: fever(s), chills, body aches, fatigue or malaise Card: Denies: chest pain Resp: Denies: dyspnea GI: Denies: abdominal pain : Denies: flank pain, dysuria or hematuria Musc: Reports: back pain, extremity pain and joint pain; Denies: neck pain Skin/Breast: Reports: other (bruising L LE) Neuro: Reports: difficulty walking; Denies: headache(s), numbness in extremities, weakness in extremities or sensory changes [facility] ED PFSH: Medical History Allergy to influenza vaccine Migraine BMI 60.0-69.9, adult Degenerative disc disease, lumbar Asthma due to seasonal allergies Osteoarthritis thoracic spine Neck pain with history of cervical spinal surgery Personal history of transient ischemic attack (TIA), and cerebral infarction without residual deficits Allergic rhinitis due to pollen History of CVA (cerebrovascular accident) Obesity Hypercholesterolemia Anxiety Essential (primary) hypertension PVC (premature ventricular contraction) Diabetes Surgical History Hx of esophagogastroduodenoscopy 2001 Hx of colonoscopy 2022 [facility] History of endometrial ablation History of section 4 times H/O neck surgery C -spine with plate 2000 History of tonsillectomy History of endarterectomy Right History of knee surgery Left Family History Mother Diabetes Heart disease Hypertension Father Diabetes Heart disease Hypertension Cancer Unknown type Sister Diabetes Heart disease Hypertension Brother Diabetes Heart disease Hypertension Family/Other Stroke Social History Smoking and tobacco/nicotine status: never used tobacco/nicotine Second hand smoke exposure: No Alcohol intake: never Substance/Drug Use: never Caregiver/support person: No Lives independently: Yes Household members: spouse Housing: Apartment Marital status: Unknown Current occupational status: unemployed Do you think of yourself as: Straight/Heterosexual Current gender identity: Female Physical Exam Const: COMMON NORMALS: no acute distress, patient oriented x3, no limitations, alert and well nourished GENERAL APPEARANCE: cooperative NUTRITIONAL APPEARANCE: obese morbidly obese (BMI over 62) ORIENTATION/CONSCIOUSNESS: Yes awake, Yes oriented to person, Yes oriented to place and Yes oriented to time HENMT: COMMON NORMALS: normocephalic and atraumatic HEAD & SCALP: normal to inspection, normocephalic and atraumatic Neck/C-Spine: COMMON NORMALS: full ROM CERVICAL SPINE: No pain with cervical ROM and No Cervical spine tenderness Resp: COMMON NORMALS: normal respiratory effort : COMMON NORMALS: Yes no CVA tenderness BLADDER/KIDNEY EXAM: Yes no CVA tenderness Back/Pelvis: COMMON NORMALS: no CVA tenderness, thoracic and lumbar spine normal to inspection, no thoracic nor lumbar tenderness and straight leg raise negative bilaterally SACRUM: no tenderness COCCYX: no tenderness OTHER: lumbar surgical incision appears clean/well dressed Extremity: COMMON NORMALS: capillary refill normal and no calf tenderness GENERAL: Yes normal exam except as noted LEFT LOWER EXTREMITY: Yes hip joint, Yes knee joint and Yes lower leg OTHER: exam limited due to patient's morbid obesity status; she has bilateral anterior knee abrasions; mild tenderness to palpation of L knee/tib fib and pain around L hip joint; extremity is NV intact; clinically no concern for DVT; ROM is limited mainly due to body habitus; no obvious bony abnormalities noted Neuro: COMMON NORMALS: patient oriented x3, moves all extremities, no focal motor deficits and no sensory deficits noted SENSORIUM/ORIENTATION: Yes alert, Yes oriented to person, Yes oriented to place and Yes oriented to time Skin: NARRATIVE SKIN EXAM: ecchymosis lower medial L leg Course Vital Signs: Vital signs: Vital Signs Temperature 98.3 F 01/31/24 15:56 Pulse Rate 70 01/31/24 16:33 Respiratory Rate 20 H 01/31/24 16:03 Blood Pressure 187/77 01/31/24 16:33 Pulse Oximetry 97 01/31/24 16:33 Oxygen Delivery Me thod Room Air 01/31/24 16:33 MDM - Extremity Injury (Lower) Medical Decision Making XRs unremarkable. She will be given pain meds and follow up with Dr. Fernandez. DDx includes contusion from fall or radicular pain from recent surgery. Surgical incision appears clean/well healing. She will be allowed discharge. XR interpretation done by ED provider, pending radiology final review ED provider radiology interpretation(s): XR interpretation done by ED provider, pending radiology final review ED provider radiology interpretation(s): no acute fractures noted to L tib/fib, knee, or hip/pelvis; slight abnormality noted to proximal fib initially concerning for fracture but this was present on previous films Discharge Plan Discharge Patient Disposition: Home Clinical Impression: Acute pain of left hip Condition: Stable Prescriptions: Continued hydrocodone-acetaminophen 5-325 mg tablet 1 - 2 tab PO .Q4-6H Qty: 14 0RF No Action travoprost 0.004 % drops 1 drp ophthalmic (eye) .HC (DME) VixOne Nebulizer-Adult Mask Misc See Rx Instructions .ROUTE .MEDSUPPLY Qty: 1 0RF Rx Instructions: daily lancets Misc See Rx Instructions .ROUTE .COMPLEX Qty: 100 5RF Dose Instruction: test blood sugar three times daily as directed. Rx Instructions: test blood sugar three times daily as directed. Tresiba FlexTouch U-200 200 unit/mL (3 mL) insulin pen 160 unit SUBCUT DAILY Rx Instructions: Does not tolerate Levemir or Lantus potassium chloride 10 mEq tablet extended release 5 meq PO DAILY (DME) cane Device See Rx Instructions .Route Qty: 1 0RF Rx Instructions: As directed albuterol sulfate 2.5 mg /3 mL (0.083 %) solution for nebulization 2.5 mg INHALATION Q4H PRN (Reason: shortness of breath or wheezing) Qty: 75 2RF albuterol sulfate [Ventolin HFA] 90 mcg/actuation HFA aerosol inhaler 2 puff INHALATION Q4H PRN (Reason: shortness of breath or wheezing) Qty: 18 2RF budesonide-formoterol [Symbicort] 80-4.5 mcg/actuation HFA aerosol inhaler 2 inh inhalation BID Qty: 10.2 3RF cetirizine 10 mg tablet 10 mg PO DAILY Qty: 30 2RF clopidogrel [Plavix] 75 mg tablet 75 mg PO DAILY Qty: 30 2RF Farxiga 10 mg tablet 10 mg PO DAILY Qty: 30 2RF duloxetine [Cymbalta] 20 mg capsule,delayed release(DR/EC) 20 mg PO BID Qty: 60 2RF ergocalciferol (vitamin D2) 1,250 mcg (50,000 unit) capsule 1,250 mcg PO .weekly Qty: 4 2RF insulin aspart U-100 [Novolog FlexPen U-100 Insulin] 100 unit/mL (3 mL) insulin pen See Rx Instructions SUBCUT TID Qty: 45 2RF Rx Instructions: 10-50 units with meals SUBCUT three times daily; (DME) pen needle, diabetic [BD Ultra-Fine Short Pen Needle] 31 gauge x 5/16 needle See Rx Instructions .ROUTE .MEDSUPPLY Qty: 200 5RF Rx Instructions: use 4 day rosuvastatin [Crestor] 40 mg tablet 40 mg PO DAILY Qty: 30 2RF valsartan 160 mg tablet 160 mg PO DAILY Qty: 30 3RF (DME) blood-glucose meter [OneTouch Ultra2 Meter] Kit See Rx Instructions .ROUTE .MEDSUPPLY Qty: 1 0RF Rx Instructions: daily (DME) blood sugar diagnostic Strip See Rx Instructions .ROUTE .MEDSUPPLY Qty: 150 5RF Rx Instructions: 5 times day (DME) Cane See Rx Instructions .Route .MEDSUPPLY Qty: 1 0RF Rx Instructions: use for weight>300 pounds nitrofurantoin monohyd/m-cryst [Macrobid] 100 mg capsule 100 mg PO Q12H 5 Days Qty: 10 0RF Rx Instructions: must administer with a meal/food tizanidine 4 mg tablet 4 mg PO Q6H PRN (Reason: muscle spasticity) Qty: 20 0RF Rx Instructions: do not exceed 3 doses per 24 hrs prednisone 20 mg tablet 20 mg PO TID Qty: 15 0RF Rx Instructions: 1 p.o. 3 times daily x3 days, 1 p.o. twice daily x2 days, 1 p.o. daily x2 days mupirocin 2 % ointment 1 applic topical BID Qty: 22 0RF Discharge Orders: Discharge ED (Routine); Ordered 01/31/24 Ordered By: Mariluz Olivo Referrals: Mary Treadwell MD [Primary Care Provider] - Patient Instructions: Opioid Safety, Pain Management Coding Level of Care Code ED [employer] Monitor for Kim Simmons
[2024-01-31 17:02] VITALS: PULSE 78; RESP 20; O2SAT 96
[2024-01-31 17:17] VITALS: RESP 22; O2SAT 98
[2024-01-31] MEDS: morphine 4 mg/mL SDV 1 mL IM (17:17)
[2024-01-31] MEDS: ketorolac 30 mg/mL INJ IM (17:19)
[2024-01-31 17:30] LABS: Glucose Point of Care 82 mg/dL (70-110)
[2024-01-31 17:54] VITALS: PULSE 73; RESP 18; O2SAT 93
== END 2024-01-31 17:55 | disposition home or self-care (01) ==
PROVIDERS: Emergency Provider Physician Assistant; PCP Family Medicine
DX: M25.552 Pain in left hip (principal); Z79.02 Long term (current) use of antithrombotics/antiplatelets; Z79.4 Long term (current) use of insulin; Z86.73 Personal history of transient ischemic attack (TIA), and cerebral infarction without residual deficits; I10 Essential (primary) hypertension; E11.9 Type 2 diabetes mellitus without complications
CPT/HCPCS: 36416; 73502; 73562; 73590; 82962; 96372; 99284; J1885; J2270

== ENCOUNTER → 2024-02-16 14:30 | Outpatient (BNVA) | payer MEDICAID, SELFPAY | PROVIDERS: PCP Family Medicine; Visit Provider Orthopaedic Surgery | DX: Z98.890 Other specified postprocedural states (principal) | CPT/HCPCS: 99024 ==

== ENCOUNTER 2024-05-09 11:33 | Oncology outpatient (recurring) (ONCR) | payer MEDICAID, SELFPAY ==
[2024-05-09 11:56] LABS: Basophils # 0.1 10^3/uL (0.0-0.1); Basophils % 0.5 %; Eosinophils # 0.4 10^3/uL (0.0-0.8); Eosinophils % 2.3 %; Hematocrit 40.6 % (36-47); Lymphocytes # 3.9 10^3/uL (0.8-4.8); Lymphocytes % 24.1 %; Mean Corpuscular HGB Conc 31.8 g/dL (30-55); Mean Corpuscular Hemoglobin 27.9 pg (27-33); Mean Corpuscular Volume 87.7 fl (85-98); Mean Platelet Volume 9.2 fL (7.4-10.4); Monocytes # 1.1 10^3/uL (0.2-0.9); Monocytes % 6.5 %; Neutrophils # 10.67 10^3/uL (1.8-7.7); Neutrophils % 66.2 %; Nucleated Red Blood Cells % 0 %; Platelet Count 396 10^3/cmm (157-399); Red Blood Count 4.63 10^6/uL (3.85-5.65); Red Cell Distribution Width 14.3 % (12.1-15.1); White Blood Count 16.12 10^3/uL (3.29-11.43)
[2024-05-09 12:13] LABS: Alanine Aminotransferase 14 U/L (0-33); Albumin Level 3.9 g/dL (3.5-5.2); Alkaline Phosphatase 89 U/L (35-105); Anion Gap 12.9 (5-19); Aspartate Amino Transferase 15 U/L (0-32); Blood Urea Nitrogen 12 mg/dL (8-23); Calcium 8.5 mg/dL (8.5-10.5); Carbon Dioxide 27 mmol/L (22-29); Chloride 104 mmol/L (98-107); Glomerular Filtration Rate 161.7 mL/min (90-130); Glucose 181 mg/dL (65-115); Osmolality Calculated 294 mOsm/kg (285-295); Potassium 3.9 mmol/L (3.5-5.1); Sodium 140 mmol/L (136-145); Total Bilirubin 0.7 mg/dL (0.15-1.2); Total Protein 6.9 g/dL (6.6-8.7)
[2024-05-09 12:29] LABS: Creatinine Clr Calc Pharmacy 208.0356
== END 2024-05-10 23:59 | disposition home or self-care (01) ==
PROVIDERS: Nurse Practitioner Family; PCP Nurse Practitioner Family; Visit Provider Internal Medicine Hematology & Oncology
DX: D72.829 Elevated white blood cell count, unspecified (principal); E87.6 Hypokalemia
CPT/HCPCS: 36415; 80053; 81263; 82232; 85025; 88185; 88264; 88271; 88367; 88374; 99214

== ENCOUNTER 2024-05-24 10:05 | Outpatient (CLI) | payer MEDICAID, SELFPAY ==
--- NOTE | 2024-05-24 09:30 | US_ITS ---
WS: [id number] Limited abdomen ultrasound. HISTORY: Pain after fall. Ultrasound is directed to the LEFT lower quadrant in the area of clinical interest near the hip. Ultrasound over the area of concern demonstrates no abnormality. This is a very superficial and limit ed evaluation of the soft tissue structures. There is no hematoma or fluid collection. US/US abdomen limited [id number] IMPRESSION: No soft tissue abnormality in the LEFT lower quadrant at the area of pain.
== END 2024-05-24 10:06 | disposition home or self-care (01) ==
LOC: RAD 10:06
PROVIDERS: Visit Provider Nurse Practitioner Family
DX: D72.829 Elevated white blood cell count, unspecified (principal)
CPT/HCPCS: 76705

== ENCOUNTER 2024-06-28 08:18 | Oncology outpatient (recurring) (ONCR) | payer MEDICAID, SELFPAY ==
--- NOTE | 2024-06-28 09:30 | CTR_ITS ---
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 TECHNIQUE: Imaging protocol: Computed tomography of the abdomen and pelvis with contrast. Radiation optimization: All CT scans at this facility use at least one of these dose optimization techniques: automated exposure control; mA and/or kV adjustment per patient size (includes targeted exams where dose is matched to clinical indication); or iterative reconstruction. Contrast material: OMNI 350; Contrast volume: 100 ml; Contrast route: INTRAVENOUS (IV); COMPARISON: CT abdomen pelvis w con* [id number] 01/18/2021 7:22 PM RADIATION DOSE METRICS: Total DLP (mGy-cm): 1459.2 FINDINGS: Lungs: Visualized lung bases are clear. No focal consolidation or other acute appearing pulmonary opacity. Liver: The liver is unremarkable. Gallbladder and biliary ducts: The gallbladder is unremarkable. No biliary ductal dilatation. Pancreas: Mild atrophy of the pancreas. No pancreatic ductal dilation. Spleen: The spleen is unremarkable. Adrenal glands: Stable 4.3 cm hypoattenuating lesion involving the right adrenal gland. This appears unchanged from at least 08/18/2019 and is favored to represent a benign adrenal adenoma. No follow-up indicated. Left adrenal gland is normal in appearance. Kidneys and ureters: Kidneys are normal. No hydronephrosis or nephrolithiasis. Stomach and bowel: Nonobstructive bowel-gas pattern. Appendix: No evidence of acute appendicitis. Intraperitoneal space: No extraluminal free air. No significant free fluid in the abdomen or pelvis. Vasculature: Moderate calcific atheromatous disease of the abdominal aorta and its major branches. No abdominal aortic aneurysm. Lymph nodes: No distinct pathologically enlarged lymphadenopathy. Urinary bladder: Urinary bladder is poorly visualized without large obvious abnormality. Reproductive: Reproductive structures are poorly visualized without large obvious abnormality. Bones/joints: Multilevel thoracolumbar spondylosis. No acute osseous findings. Soft tissues: Focal area of superficial soft tissue thickening overlying the right lower quadrant abdomen, now measuring up to 6.5 cm (axial series 4, image 55; sagittal series 7, image 70). This previously measured up to 4.5 cm on 01/18/2021. Other findings: Image quality is suboptimal secondary to extensive beam hardening artifact. CT/CT abdomen pelvis w con* [id number] IMPRESSION: 1. No acute findings to suggest a cause of left lower quadrant abdominal pain. 2. Focal area of superficial soft tissue thickening overlying the right lower quadrant abdomen, now measuring up to 6.5 cm (axial series 4, image 55; sagittal series 7, image 70). This previously measured up to 4.5 cm on 01/18/2021. This is favored to be benign. Recommend correlation with visual inspection.
[2024-06-28] MEDS: iohexol 350 mg/mL 500 mL Btl (per mL) PO (09:44)
[2024-06-28] MEDS: iohexol 350 mg/mL 500 mL Btl (per mL) IV (10:00)
== END 2024-07-10 23:59 | disposition home or self-care (01) ==
LOC: RAD 08:20 → ONCMED 09:36
PROVIDERS: PCP Nurse Practitioner Family; Visit Provider Nurse Practitioner Family
DX: D72.829 Elevated white blood cell count, unspecified (principal); E87.6 Hypokalemia; D75.839 Thrombocytosis, unspecified; Z13.89 Encounter for screening for other disorder; I10 Essential (primary) hypertension; J44.9 Chronic obstructive pulmonary disease, unspecified; E66.01 Morbid (severe) obesity due to excess calories; Z68.44 Body mass index [BMI] 60.0-69.9, adult; R10.32 Left lower quadrant pain
CPT/HCPCS: 74177

== ENCOUNTER → 2024-07-19 13:38 | Outpatient (BNVA) | payer MEDICAID, SELFPAY | PROVIDERS: PCP Nurse Practitioner Family; Visit Provider Nurse Practitioner | DX: E11.69 Type 2 diabetes mellitus with other specified complication (principal); E55.9 Vitamin D deficiency, unspecified; N39.0 Urinary tract infection, site not specified; Z79.4 Long term (current) use of insulin | CPT/HCPCS: 80053; 80061; 81000; 82306; 82607; 83036; 84443; 87077; 87086; 87184 ==

== ENCOUNTER → 2024-07-26 15:41 | Outpatient (BNVA) | payer MEDICAID, SELFPAY | PROVIDERS: PCP Nurse Practitioner; Visit Provider Student in an Organized Health Care Education/Training Program | DX: M25.561 Pain in right knee (principal); M25.562 Pain in left knee; M17.9 Osteoarthritis of knee, unspecified | CPT/HCPCS: 20610; 73560; 73565; J3301 ==

== ENCOUNTER 2024-09-06 10:57 | Oncology outpatient (recurring) (ONCR) | payer MEDICAID, SELFPAY ==
[2024-09-06 11:54] LABS: Basophils # 0.1 10^3/uL (0.0-0.1); Basophils % 0.4 %; Eosinophils # 0.3 10^3/uL (0.0-0.8); Eosinophils % 1.8 %; Hematocrit 42.2 % (36-47); Lymphocytes # 3.7 10^3/uL (0.8-4.8); Mean Corpuscular HGB Conc 32.5 g/dL (30-55); Mean Corpuscular Hemoglobin 28.6 pg (27-33); Mean Corpuscular Volume 88.1 fl (85-98); Mean Platelet Volume 9.1 fL (7.4-10.4); Monocytes % 6.4 %; Nucleated Red Blood Cells % 0 %; Platelet Count 426 10^3/cmm (157-399); Red Blood Count 4.79 10^6/uL (3.85-5.65); Red Cell Distribution Width 14.7 % (12.1-15.1); White Blood Count 15.88 10^3/uL (3.29-11.43)
[2024-09-06 12:01] LABS: Alanine Aminotransferase 15 U/L (0-33); Albumin Level 3.5 g/dL (3.5-5.2); Alkaline Phosphatase 100 U/L (35-105); Anion Gap 13.9 (5-19); Aspartate Amino Transferase 20 U/L (0-32); Blood Urea Nitrogen 15 mg/dL (8-23); Calcium 9.1 mg/dL (8.5-10.5); Carbon Dioxide 28 mmol/L (22-29); Chloride 103 mmol/L (98-107); Creatinine Clr Calc Pharmacy 212.1784; Globulin 3.3 g/dL (1.3-4.6); Glomerular Filtration Rate 161.7 mL/min (90-130); Glucose 97 mg/dL (65-115); Osmolality Calculated 293 mOsm/kg (285-295); Potassium 3.9 mmol/L (3.5-5.1); Sodium 141 mmol/L (136-145); Total Bilirubin 0.7 mg/dL (0.15-1.2); Total Protein 6.8 g/dL (6.6-8.7)
== END 2024-09-07 23:59 | disposition home or self-care (01) ==
PROVIDERS: PCP Nurse Practitioner; Visit Provider Nurse Practitioner Family
DX: D72.829 Elevated white blood cell count, unspecified (principal)
CPT/HCPCS: 36415; 80053; 85025; 99214

== ENCOUNTER → 2024-10-22 09:12 | Outpatient (BNVA) | payer MEDICAID, SELFPAY | PROVIDERS: PCP Nurse Practitioner; Visit Provider Nurse Practitioner | DX: J45.909 Unspecified asthma, uncomplicated (principal); E55.9 Vitamin D deficiency, unspecified; Z86.73 Personal history of transient ischemic attack (TIA), and cerebral infarction without residual deficits; I10 Essential (primary) hypertension; E11.69 Type 2 diabetes mellitus with other specified complication; Z79.4 Long term (current) use of insulin; E78.00 Pure hypercholesterolemia, unspecified; E11.65 Type 2 diabetes mellitus with hyperglycemia | CPT/HCPCS: 80053; 81000; 82306; 83036; 85025 ==

== ENCOUNTER 2024-11-20 12:15 | Emergency (ER) | payer MEDICAID, SELFPAY ==
[2024-11-20 12:25] VITALS: BP 187/102; PULSE 90; RESP 16; TEMP 36.7; O2SAT 96; BMI 62.1
--- NOTE | 2024-11-20 14:06 | XR_ITS ---
WS: [id number] Exam: XR foot LT min 3V* [id number] Date/Time of Exam: 11/20/2024 2:18 PM Reason For Exam: injury No acute fracture. Soft tissue swelling over the dorsum of the forefoot. Mild degenerative changes in the IP joints and midfoot joints. Plantar heel spur. XR/XR foot LT min 3V* [id number] IMPRESSION: 1. Dorsal soft tissue swelling of the forefoot but no obvious fracture.
--- NOTE | 2024-11-20 14:06 | USR_ITS ---
PROCEDURE INFORMATION: Exam: US Duplex Left Lower Extremity Veins, Limited Exam date and time: 11/20/2024 2:57 PM Age: 64 years old Clinical indication: Pain; Leg, lower; Left; Additional info: Left swelling TECHNIQUE: Imaging protocol: Real-time duplex ultrasound of the left extremity with 2-D fletcher scale, color Doppler flow and spectral waveform analysis including responses to compression and other maneuvers (when performed) with image documentation. Limited exam focused on the left lower extremity veins. COMPARISON: US soft tissue/extremity [id number] 09/07/2021 11:55 AM FINDINGS: Left deep veins: Unremarkable. The common femoral, femoral, proximal profunda femoral and popliteal veins are patent without thrombus. Normal Doppler waveforms. Normal compressibility and/or augmentation response. Superficial veins: Greater saphenous vein at the saphenofemoral junction is patent without thrombus. Soft tissues: Unremarkable. US/[place] [id number] IMPRESSION: No evidence of deep vein thrombosis.
--- NOTE | 2024-11-20 14:09 | ED_ITS ---
HPI - General Adult 2 General: Chief complaint: General Medical Stated complaint: Rt Leg Leaking Time Seen by Provider: 11/20/24 13:29 Source: patient Mode of arrival: ambulatory Limitations: no limitations History of Present Illness: 64-year-old female states she has been h aving some increased swelling to her left lower extremity with some weeping denies any redness or warmth. States she also has left foot pain she had dropped an ice pack on it 3 weeks ago. Denies any severe pain in her leg. Associated symptoms: Deny chest pain, dyspnea, headache(s), nausea, rash or vomiting Related Data Previous Rx's ?Medication ?Instructions ?Recorded albuterol sulfate 2.5 mg/3 mL 2.5 mg (3 mL) inhalation Q4H PRN 03/01/24 (0.083 %) solution for nebulization shortness of breat h or wheezing #75 mL albuterol sulfate 90 mcg/actuation 2 puff inhalation Q 4H PRN 07/19/24 aerosol inhaler (Ventolin HFA) shortness of breath or wheezing #18 grams insulin aspart U-100 100 unit/mL See Rx Instructions S UBCUT TID #45 07/19/24 (3 mL) subcutaneous pen (Novolog mL FlexPen U-100 Insulin aspart) budesonide-formoterol HFA 80 2 inh inhalation BID #10. 2 grams 10/22/24 mcg-4.5 mcg/actuation aerosol inhaler (Symbicort) clopidogrel 75 mg tablet (Plavix) 75 mg PO DAILY #30 t abs 10/22/24 dapagliflozin propanediol 10 mg 10 mg PO DAILY #30 tab s 10/22/24 tablet (Farxiga) dulaglutide 0.75 mg/0.5 mL 0.75 mg (0.5 mL) SUBCUT .we ekly #2 10/22/24 subcutaneous pen injector mL (Trulicity) duloxetine 30 mg capsule,delayed 30 mg PO BID #60 caps 10/22/24 release furosemide 20 mg tablet (Lasix) 20 mg PO QAM #30 tabs 10/22/24 insulin degludec 200 unit/mL (3 160 unit (0.8 mL) SUBC UT DAILY #30 10/22/24 mL) subcutaneous pen (Tresiba mL FlexTouch U-200 insulin) potassium chloride 10 mEq 10 meq PO DAILY #30 tabs tablet,extended release rosuvastatin 40 mg tablet (Crestor) 40 mg PO DAILY #30 tabs 10/22/24 tizanidine 4 mg tablet 4 mg PO Q6H PRN muscle spast icity 10/22/24 #60 tabs valsartan 320 mg tablet 320 mg PO DAILY #30 tabs hydralazine 25 mg tablet 25 mg PO Q12H #60 tabs 10/23 Allergies Allergy/AdvReac Type Severity Reaction Status Date / Time doxycycline Allergy Intermediate ALGY-Hives Verified 10/22/24 08:13 aspirin Allergy ADR-Itching Verified 10/22/24 08:13 cefaclor (From [facility]) Allergy ADR-Itching Verified 10/22/24 08:13 lemon Allergy tongue Verified 10/22/24 08:13 swelling Penicillins Allergy ADR-Itching Verified 10/22/24 08:13 Sulfa (Sulfonamide Allergy ALGY-Difficulty Verified 10/22/24 08:13 Antibiotics) Breathing Influenza Virus Vaccines AdvReac Severe ADR-Chest Verified 10/22/24 08:13 Pain metformin AdvReac Severe ADR-Diarrhe Verified 10/22/24 08:13 a tramadol AdvReac Severe Body pain Verified 10/22/24 08:13 Review of Systems 2 Const: Denies: fever(s), chills, body aches or change in appetite ENMT: Denies: throat pain or dental pain Card: Denies: chest pain Resp: Denies: dyspnea GI: Denies: abdominal pain, nausea, vomiting or diarrhea Musc: Reports: extremity pain and extremity swelling; Denies: neck pain or back pain Skin/Breast: Denies: rash Neuro: Denies: headache(s) PFSH ED 2 PFSH: Medical History Allergy to influenza vaccine Migraine BMI 60.0-69.9, adult Degenerative disc disease, lumbar Asthma due to seasonal allergies Osteoarthritis thoracic spine Neck pain with history of cervical spinal surgery Personal history of transient ischemic attack (TIA), and cerebral infarction without residual deficits Allergic rhinitis due to pollen History of CVA (cerebrovascular accident) Obesity Hypercholesterolemia Anxiety Essential (primary) hypertension PVC (premature ventricular contraction) Diabetes Surgical History Hx of esophagogastroduodenoscopy 2001 Hx of colonoscopy 3 [facility] History of endometrial ablation History of section 4 times H/O neck surgery C -spine with plate 2000 History of tonsillectomy History of endarterectomy Right History of knee surgery Left Family History Mother Diabetes Heart disease Hypertension Father Diabetes Heart disease Hypertension Cancer Unknown type Sister Diabetes Heart disease Hypertension Brother Diabetes Heart disease Hypertension Family/Other Stroke Social History Smoking and tobacco/nicotine status: never used tobacco/nicotine Second hand smoke exposure: No Alcohol intake: never Substance/Drug Use: never Caregiver/support person: No Lives independently: Yes Household members: spouse Housing: Apartment Marital status: Unknown Current occupational status: unemployed Do you think of yourself as: Straight/Heterosexual Current gender identity: Female Physical Exam 2 Const: COMMON NORMALS: no acute distress, patient oriented x3 and healthy appearing HENMT: COMMON NORMALS: normocephalic and atraumatic HEAD & SCALP: n ormocephalic and atraumatic Eye: COMMON NORMALS: conjunctivae normal CONJUNCTIVA: Yes conjunctivae normal Neck/C-Spine: COMMON NORMALS: full ROM and supple Chest: COMMONS NORMALS: normal inspection of the chest Resp: COMMON NORMALS: normal respiratory effort, No retractions, No use of accessory muscles and clear to auscultation bilaterally AUSCULTATION: clear to auscultation bilaterally Cardio: COMMON NORMALS: regular rate, regular rhythm and No murmurs present (Cardio) RATE: regular rate RHYTHM: regular rhythm Extremity: NARRATIVE EXTREMITY EXAM: Swelling noted to the left lower extremity distal pulses intact some tenderness over left foot. Neuro: COMMON NORMALS: patient oriented x3, moves all extremities and no focal motor deficits Psych: COMMON NORMALS: mental status grossly normal, Normal thought process present and cooperative THOUGHT PROCESS: Normal thought process present Skin: COMMON NORMALS: no rashes or lesions noted and no wounds GENERAL SKIN EXAM: no rashes or lesions noted Course 2 Vital Signs: Vital signs: Vital Signs Temperature 98.0 F 11/20/24 12:25 Pulse Rate 84 11/20/24 15:30 Respiratory Rate 20 H 11/20/24 15:30 Blood Pressure 200/106 11/20/24 15:30 Pulse Oximetry 92 11/20/24 15:30 Oxygen Delivery Me thod Room Air 11/20/24 12:25 MDM - General Adult Medical Decision Making Patient presents with leg swelling exam here is benign no erythema ultrasound was negative blood works negative she stable for discharge follow-up with PCP Medical Records I reviewed the patient's medical records. Lab Data I reviewed the patient's lab results. 11/20/24 13:47 11/20/24 13:47 Radiology Impressions Foot X-Ray 11/20/24 14:06 IMPRESSION: 1. Dorsal soft tissue swelling of the forefoot but no obvious fracture. Laboratory Results WBC 12.51 10^3/uL (3.29-11.43) H 11/20/24 13:47 RBC 4.55 10^6/uL (3.85-5.65) 11/20/24 13:47 Hgb 12.80 g/dL (11.27-16.99) 11/20/24 13:47 Hct 41.3 % (36-47) 11/20/24 13:47 MCV 90.8 fl (85-98) 11/20/24 13:47 MCH 28.1 pg (27-33) 11/20/24 13:47 MCHC 31.0 g/dL (30-55) 11/20/24 13:47 RDW 14.1 % (12.1-15.1) 11/20/24 13:47 Plt Count 343 10^3/cmm (157-399) 11/20/24 13:47 MPV 9.5 fL (7.4-10.4) 11/20/24 13:47 Neut % (Auto) 64.5 % 11/20/24 13:47 Lymph % (Auto) 24.6 % 11/20/24 13:47 [place] % (Auto) 6.8 % 11/20/24 13:47 Eos % (Auto) 3.1 % 11/20/24 13:47 Baso % (Auto) 0.6 % 11/20/24 13:47 Neut # (Auto) 8.07 10^3/uL (1.8-7.7) H 11/20/24 13:47 Lymph # (Auto) 3.1 10^3/uL (0.8-4.8) 11/20/24 13:47 [place] # (Auto) 0.9 10^3/uL (0.2-0.9) 11/20/24 13:47 Eos # (Auto) 0.4 10^3/uL (0.0-0.8) 11/20/24 13:47 Baso # (Auto) 0.1 10^3/uL (0.0-0.1) 11/20/24 13:47 Nucleated RBC % (auto) 0 % 11/20/24 13:47 Nucleated RBCs # 0.0 /100WBC 11/20/24 13:47 Sodium 140 mmol/L (136-145) 11/20/24 13:47 Potassium 4.2 mmol/L (3.5-5.1) 11/20/24 13:47 Chloride 102 mmol/L (98-107) 11/20/24 13:47 Carbon Dioxide 28 mmol/L (22-29) 11/20/24 13:47 Anion Gap 14.2 (5-19) 11/20/24 13:47 BUN 17 mg/dL (8-23) 11/20/24 13:47 Creatinine 0.5 mg/dL (0.5-0.9) 11/20/24 13:47 GFR Calculation 125.0 mL/min (90-130) 11/20/24 13:47 Glucose 230 mg/dL (65-115) H 11/20/24 13:47 Calculated Osmolality 299 mOsm/kg (285-295) H 11/20/24 13:47 Calcium 8.9 mg/dL (8.5-10.5) 11/20/24 13:47 Total Bilirubin 0.7 mg/dL (0.15-1.2) 11/20/24 13:47 AST 13 U/L (0-32) 11/20/24 13:47 ALT 13 U/L (0-33) 11/20/24 13:47 Alkaline Phosphatase 91 U/L (35-105) 11/20/24 13:47 NT-Pro-B Natriuret Pep 48 pg/mL (0-125) 11/20/24 13:47 Total Protein 6.7 g/dL (6.6-8.7) 11/20/24 13:47 Albumin 3.4 g/dL (3.5-5.2) L 11/20/24 13:47 Globulin 3.3 g/dL (1.3-4.6) 11/20/24 13:47 All radiology interpretation(s) finalized by discharge Discharge Plan Discharge Patient Disposition: Home Clinical Impression: Leg swelling Condition: Stable Prescriptions: No Action albuterol sulfate [Ventolin HFA] 90 mcg/actuation HFA aerosol inhaler 2 puff INHALATION Q4H PRN (Reason: shortness of breath or wheezing) Qty: 18 2RF insulin aspart U-100 [Novolog FlexPen U-100 Insulin] 100 unit/mL (3 mL) insulin pen See Rx Instructions SUBCUT TID Qty: 45 2RF Rx Instructions: 10-50 units with meals SUBCUT three times daily; budesonide-formoterol [Symbicort] 80-4.5 mcg/actuation HFA aerosol inhaler 2 inh inhalation BID Qty: 10.2 2RF clopidogrel [Plavix] 75 mg tablet 75 mg PO DAILY Qty: 30 2RF Farxiga 10 mg tablet 10 mg PO DAILY Qty: 30 2RF potassium chloride 10 mEq tablet extended release 10 meq PO DAILY Qty: 30 2RF duloxetine 30 mg capsule,delayed release(DR/EC) 30 mg PO BID Qty: 60 2RF Tresiba FlexTouch U-200 200 unit/mL (3 mL) insulin pen 160 unit SUBCUT DAILY Qty: 30 2RF Rx Instructions: Does not tolerate Levemir or Lantus rosuvastatin [Crestor] 40 mg tablet 40 mg PO DAILY Qty: 30 2RF tizanidine 4 mg tablet 4 mg PO Q6H PRN (Reason: muscle spasticity) Qty: 60 2RF Rx Instructions: do not exceed 3 doses per 24 hrs furosemide [Lasix] 20 mg tablet 20 mg PO QAM Qty: 30 2RF valsartan 320 mg tablet 320 mg PO DAILY Qty: 30 2RF Trulicity 0.75 mg/0.5 mL pen injector 0.75 mg SUBCUT .weekly Qty: 2 2RF hydralazine 25 mg tablet 25 mg PO Q12H Qty: 60 2RF albuterol sulfate 2.5 mg /3 mL (0.083 %) solution for nebulization 2.5 mg INHALATION Q4H PRN (Reason: shortness of breath or wheezing) Qty: 75 2RF Discharge Orders: Discharge ED (Routine); Ordered 11/20/24 Ordered By: Geeta Dotson Referrals: Brandi An FNP-C [Primary Care Provider, Family Practice] - 4-7 days Discharge Diet: Advance as tolerated Discharge Activity: Resume usual activity Patient Instructions: Leg Edema (ED) Print Language: Colombian Coding Level of Care Code ED [employer] Sales Representative for Kim Simmons
[2024-11-20] MEDS: FUROsemide 40 mg Tablet PO (14:32)
[2024-11-20 15:01] LABS: Basophils # 0.1 10^3/uL (0.0-0.1); Basophils % 0.6 %; Eosinophils # 0.4 10^3/uL (0.0-0.8); Eosinophils % 3.1 %; Hematocrit 41.3 % (36-47); Lymphocytes # 3.1 10^3/uL (0.8-4.8); Lymphocytes % 24.6 %; Mean Corpuscular Hemoglobin 28.1 pg (27-33); Mean Corpuscular Volume 90.8 fl (85-98); Mean Platelet Volume 9.5 fL (7.4-10.4); Monocytes # 0.9 10^3/uL (0.2-0.9); Monocytes % 6.8 %; Neutrophils # 8.07 10^3/uL (1.8-7.7); Neutrophils % 64.5 %; Nucleated Red Blood Cells % 0 %; Platelet Count 343 10^3/cmm (157-399); Red Blood Count 4.55 10^6/uL (3.85-5.65); Red Cell Distribution Width 14.1 % (12.1-15.1); White Blood Count 12.51 10^3/uL (3.29-11.43)
[2024-11-20 15:30] VITALS: BP 200/106; PULSE 84; RESP 20; O2SAT 92
[2024-11-20 15:40] LABS: Alanine Aminotransferase 13 U/L (0-33); Albumin Level 3.4 g/dL (3.5-5.2); Alkaline Phosphatase 91 U/L (35-105); Anion Gap 14.2 (5-19); Aspartate Amino Transferase 13 U/L (0-32); Blood Urea Nitrogen 17 mg/dL (8-23); Calcium 8.9 mg/dL (8.5-10.5); Carbon Dioxide 28 mmol/L (22-29); Chloride 102 mmol/L (98-107); Globulin 3.3 g/dL (1.3-4.6); Glucose 230 mg/dL (65-115); NT Pro B Type Natriuretic Pept 48 pg/mL (0-125); Osmolality Calculated 299 mOsm/kg (285-295); Potassium 4.2 mmol/L (3.5-5.1); Sodium 140 mmol/L (136-145); Total Bilirubin 0.7 mg/dL (0.15-1.2); Total Protein 6.7 g/dL (6.6-8.7)
[2024-11-20 15:50] VITALS: BP 200/108
[2024-11-20] MEDS: cloNIDine 0.1 mg Tablet PO (15:50)
[2024-11-20 16:01] VITALS: BP 193/64; PULSE 82; O2SAT 92
== END 2024-11-20 16:02 | disposition home or self-care (01) ==
PROVIDERS: Emergency Provider Emergency Medicine; PCP Nurse Practitioner
DX: R60.0 Localized edema (principal); Z79.02 Long term (current) use of antithrombotics/antiplatelets; E11.9 Type 2 diabetes mellitus without complications; I10 Essential (primary) hypertension; Z86.73 Personal history of transient ischemic attack (TIA), and cerebral infarction without residual deficits
CPT/HCPCS: 36415; 73630; 80053; 83880; 85025; 93971; 99284; J9999

== ENCOUNTER → 2025-03-18 08:51 | Outpatient (BNVA) | payer MEDICAID, SELFPAY | PROVIDERS: PCP Nurse Practitioner; Visit Provider Nurse Practitioner | DX: E11.69 Type 2 diabetes mellitus with other specified complication (principal); Z79.4 Long term (current) use of insulin; E55.9 Vitamin D deficiency, unspecified | CPT/HCPCS: 80053; 80061; 82306; 82607; 83036 ==

== ENCOUNTER 2025-05-01 14:45 | Oncology outpatient (recurring) (ONCR) | payer MEDICAID, SELFPAY ==
[2025-05-01 15:01] LABS: Hematocrit 43.1 % (36-47); Hemoglobin 13.60 g/dL (11.27-16.99); Mean Corpuscular HGB Conc 31.6 g/dL (30-55); Mean Corpuscular Hemoglobin 27.3 pg (27-33); Mean Corpuscular Volume 86.5 fl (85-98); Nucleated Red Blood Cells % 0 %; Platelet Count 401 10^3/cmm (157-399); Red Blood Count 4.98 10^6/uL (3.85-5.65); White Blood Count 14.32 10^3/uL (3.29-11.43)
[2025-05-01 15:18] LABS: Alanine Aminotransferase 13 U/L (0-33); Albumin Level 4.1 g/dL (3.5-5.2); Alkaline Phosphatase 94 U/L (35-105); Anion Gap 15.0 (5-19); Aspartate Amino Transferase 16 U/L (0-32); Blood Urea Nitrogen 21 mg/dL (8-23); Calcium 9.4 mg/dL (8.5-10.5); Carbon Dioxide 28 mmol/L (22-29); Chloride 104 mmol/L (98-107); Creatinine Clr Calc Pharmacy 214.2778; Globulin 3.3 g/dL (1.3-4.6); Glucose 127 mg/dL (65-115); Osmolality Calculated 301 mOsm/kg (285-295); Potassium 4.0 mmol/L (3.5-5.1); Sodium 143 mmol/L (136-145); Total Protein 7.4 g/dL (6.6-8.7)
== END 2025-05-10 23:59 | disposition home or self-care (01) ==
PROVIDERS: Internal Medicine; PCP Nurse Practitioner; Visit Provider Nurse Practitioner Family
DX: D72.829 Elevated white blood cell count, unspecified (principal); Z86.73 Personal history of transient ischemic attack (TIA), and cerebral infarction without residual deficits; E66.9 Obesity, unspecified; Z68.44 Body mass index [BMI] 60.0-69.9, adult
CPT/HCPCS: 36415; 80053; 85025; 99213

== ENCOUNTER → 2025-05-02 12:33 | Outpatient (BNVA) | payer MEDICAID, SELFPAY | PROVIDERS: PCP Nurse Practitioner; Visit Provider Nurse Practitioner | DX: E11.65 Type 2 diabetes mellitus with hyperglycemia (principal); Z79.4 Long term (current) use of insulin | CPT/HCPCS: 84443 ==

== ENCOUNTER 2025-05-08 15:04 | Outpatient (CLI) | payer MEDICAID, SELFPAY ==
--- NOTE | 2025-05-08 15:24 | MM_ITS ---
WS: [id number] BILATERAL 3D TOMOSYNTHESIS DIGITAL SCREENING MAMMOGRAPHY WITH CAD CLINICAL INFORMATION: ANNUAL SCREENING HISTORY: Screening mammogram. No current complaints. COMPARISON: 2022 TECHNIQUE: Bilateral CC and MLO views. FINDINGS: Scattered fibroglandular densities bilaterally. No suspicious focal mass, asymmetry, calcifications, or architectural distortion. No evidence of malignancy. Punctate and lucent centered calcifications. MM/MM scr tomosynthesis [id number] IMPRESSION: DENSITY: There are scattered areas of fibroglandular density. BI-RADS: 2 - Benign. FOLLOW UP: 1 Year Follow-up Recommend return to annual screening mammography.
== END 2025-05-08 15:05 | disposition home or self-care (01) ==
LOC: RAD 15:05
PROVIDERS: PCP Nurse Practitioner; Visit Provider Nurse Practitioner
DX: Z12.31 Encounter for screening mammogram for malignant neoplasm of breast (principal); R92.323 Mammographic fibroglandular density, bilateral breasts; R92.1 Mammographic calcification found on diagnostic imaging of breast
CPT/HCPCS: 77063; 77067

== ENCOUNTER → 2025-05-09 13:12 | Outpatient (BNVA) | payer MEDICAID, SELFPAY | PROVIDERS: PCP Nurse Practitioner; Referring Provider Nurse Practitioner; Visit Provider Internal Medicine Cardiovascular Disease | DX: R00.0 Tachycardia, unspecified (principal); I49.8 Other specified cardiac arrhythmias; I49.3 Ventricular premature depolarization; I49.1 Atrial premature depolarization | CPT/HCPCS: 93242 ==

== ENCOUNTER → 2025-05-14 14:44 | Outpatient (BNVA) | payer MEDICAID, SELFPAY | PROVIDERS: PCP Nurse Practitioner; Visit Provider Physician Assistant | DX: M17.11 Unilateral primary osteoarthritis, right knee (principal); M17.12 Unilateral primary osteoarthritis, left knee; Z71.89 Other specified counseling; R03.0 Elevated blood-pressure reading, without diagnosis of hypertension | CPT/HCPCS: 20610; 99213; J3301; J9999 ==

== ENCOUNTER → 2025-06-11 09:04 | Outpatient (BNVA) | payer MEDICAID, SELFPAY | PROVIDERS: PCP Nurse Practitioner; Visit Provider Nurse Practitioner | DX: E11.65 Type 2 diabetes mellitus with hyperglycemia (principal); E55.9 Vitamin D deficiency, unspecified; Z79.4 Long term (current) use of insulin | CPT/HCPCS: 80053; 82043; 82306; 83036 ==